=== PATIENT | female | born 1940 | race Caucasian/White ===

== ENCOUNTER → 2017-06-11 | Outpatient (CLI) | payer OTHER, MEDICARE ==
--- NOTE | 2017-06-11 09:26 | DIAGNOSTIC IMAGING REPORT ---
ULTRASOUND ABDOMEN COMPLETE CLINICAL HISTORY: Vomiting. Abdominal distention. COMPARISON STUDY: No priors. TECHNIQUE: Real-time, grayscale, and color flow sonography of the abdomen was performed. Images are reviewed in the transverse and longitudinal planes. FINDINGS: Liver: The liver is top normal in size and demonstrates heterogeneously increased echotexture suggesting hepatic steatosis. There is no intrahepatic biliary ductal dilatation. The main portal vein is patent. Gallbladder: The gallbladder is surgically absent. The common bile duct measures up to 0.5 cm in diameter. Pancreas: Visualized portions of the pancreatic head and body are normal in appearance. The splenic vein is patent. Spleen: The spleen is normal in size and heterogeneous in echotexture, measuring 11.3 cm in length. There is a questionable subcapsular collection and possible parenchymal calcification. Kidneys: The kidneys are normal in size and echotexture. There is no hydronephrosis. The right kidney measures 11.3 cm in length and the left kidney measures 9.6 cm in length. No shadowing calculi are identified. A 1.8 cm cyst is incidentally noted on the right. Abdominal vasculature: Visualized portions of the abdominal aorta and IVC are normal in appearance. Ascites: None. IMPRESSION: 1. The spleen is heterogeneous and there is a questionable subcapsular collection. This is not well assessed and of indeterminant significance. Correlation with a contrast-enhanced abdominal CT is recommended for further assessment. 2. The gallbladder is surgically absent. 3. Findings suggest hepatic steatosis. Electronically signed by: Braydon Ozuna M.D. 06/11/2017 9:24 AM Dictated Date/Time: 06/11/2017 9:18 AM
== END | disposition home or self-care (01) ==
LOC: C.ULTR 08:30
PROVIDERS: ATTEND Internal Medicine Gastroenterology
DX: R11.10 Vomiting, unspecified (principal); R14.0 Abdominal distension (gaseous); R93.2 Abnormal findings on diagnostic imaging of liver and biliary tract; Z90.49 Acquired absence of other specified parts of digestive tract

== ENCOUNTER → 2017-06-15 | Outpatient (CLI) | payer OTHER, MEDICARE ==
[~2017-06-15] MED LIST: OPTIRAY 320 IV PRN
--- NOTE | 2017-06-15 15:22 | DIAGNOSTIC IMAGING REPORT ---
ABD WITH IV CONTRAST ONLY (CT) HISTORY: 76 years-old Female ABDOMEN WITH CONTRAST / SPLENIC LESION follow-up study to assess splenic lesion seen on comparison ultrasound. COMPARISON: Abdominal ultrasound 06/11/2017 TECHNIQUE: Multiple axial CT images of the abdomen were obtained following the intravenous administration of 91 mL Optiray 320. A dose lowering technique was used consistent with the principals of ELMO. FINDINGS: There is an opaque likely densely calcified lobulated structure within the inferior left posterior mediastinum posterior to the left diaphragmatic travis measuring 5.9 x 4.9 x 5.3 cm nicely seen on image 59 of series 3. No associated invasion of the adjacent structures identified. There are central areas of soft tissue attenuation within this lesion measuring up to 2.6 cm as seen on image 69 series 3. Mass causes mild rightward displacement of the gastroesophageal junction and descending thoracic aorta at this level. Imaged inferior cardiac chambers are unremarkable. Coronary arterial calcifications are seen. Prior cholecystectomy. The liver, pancreas and adrenal glands are within normal limits. The spleen is within normal limits without subcapsular collection or calcifications identified. The previously described findings on ultrasound were likely artifactual from the aforementioned calcified mass. Low attenuating lesions of the kidneys bilaterally suggest cysts, however are too small to characterize. No definite renal calculi or hydronephrosis. The abdominal aorta and trace moderate atherosclerotic plaquing. No bulky adenopathy identified. There is no bowel obstruction or focal bowel wall thickening. Bones are moderately demineralized. Prior posterior decompression with interbody fusion at L3-L5. IMPRESSION: 1. Large 5.9 cm lobulated circumscribed dense structure of the inferior aspect posterior mediastinum posterior to the left diaphragmatic travis appears calcified and causes mild mass effect upon the adjacent descending thoracic aorta and distal esophagus containing areas of central soft tissue attenuation. This lesion is nonspecific however is likely benign. As a precautionary measure, a six-month follow-up chest CT recommended. 2. Normal appearance of the spleen. Previously questioned splenic abnormalities were likely from artifact secondary to the aforementioned lesion. 3. Prior cholecystectomy. The above report was generated using voice recognition software. It may contain grammatical, syntax or spelling errors. Electronically signed by: Gabriel House M.D. 06/15/2017 3:21 PM Dictated Date/Time: 06/15/2017 2:03 PM
== END | disposition home or self-care (01) ==
LOC: C.CTS 13:15
PROVIDERS: ATTEND Internal Medicine Gastroenterology
DX: D73.89 Other diseases of spleen (principal); Z90.49 Acquired absence of other specified parts of digestive tract

== ENCOUNTER 2017-08-29 08:25 | Inpatient (IN) | payer OTHER, MEDICARE ==
[2017-08-10 10:05] VITALS: BMI 32.0
--- NOTE | 2017-08-10 10:36 | PAT Medication Instructions ---
Service Date Aug 10, 2017. Current Home Medication List Amlodipine (Norvasc), 5 MG PO QAM Aspirin (Aspirin Ec), 81 MG PO QAM Atorvastatin (Lipitor), 40 MG PO QAM Escitalopram Oxalate (Lexapro), 20 MG PO QAM Hctz/Losartan (Hyzaar 25MG/100MG), 1 TAB PO QAM Ibuprofen (Advil), 600 MG PO PRN Multivitamin (Multivitamin), 1 TAB PO QAM Omeprazole (Prilosec), 40 MG PO QAM Triamcinolone Acetonide (Nasal (Nasacort Allergy 24Hr), 1 SPRAY INTNAS PRN [Ultram], 1 TAB PO PRN Medication Instructions For Your Scheduled Surgery - Instructions per surgeon: Ibuprofen (Advil), 600 MG PO PRN - Hold the following medications the morning of surgery: Hctz/Losartan (Hyzaar 25MG/100MG), 1 TAB PO QAM Multivitamin (Multivitamin), 1 TAB PO QAM - Take the following medications the morning of surgery with a sip of water OTHERWISE NOTHING TO EAT OR DRINK AFTER MIDNIGHT: Amlodipine (Norvasc), 5 MG PO QAM Aspirin (Aspirin Ec), 81 MG PO QAM Atorvastatin (Lipitor), 40 MG PO QAM Omeprazole (Prilosec), 40 MG PO QAM Escitalopram Oxalate (Lexapro), 20 MG PO QAM [Ultram], 1 TAB PO PRN (may take if needed up to 4 hours prior to surgery) Triamcinolone Acetonide (Nasal (Nasacort Allergy 24Hr), 1 SPRAY INTNAS PRN - Take the following medications as scheduled the night before surgery: [Ultram], 1 TAB PO PRN If you have any questions please call us at [phone] or [phone] or [phone]
--- NOTE | 2017-08-10 11:32 | DIAGNOSTIC IMAGING REPORT ---
CHEST 2 VIEWS ROUTINE HISTORY: 77 years-old Female PAT preoperative exam. No acute chest complaints. COMPARISON: CT of the abdomen 06/15/2017 TECHNIQUE: PA and lateral views of the chest FINDINGS: Cardiac silhouette is mildly enlarged, unchanged. Atherosclerosis of the aorta. No pneumothorax, pleural effusion, focal airspace consolidation or overt pulmonary edema. Fusion hardware is seen within the cervical and lumbar spine, partially imaged. Multilevel endplate spurring of the spine. Prior cholecystectomy. Large lobulated densely calcified structure of the left posterior mediastinum redemonstrated measuring up to 5.9 x 5.4 cm. This appears stable from comparison CT is again nonspecific. IMPRESSION: No acute cardiopulmonary process. The above report was generated using voice recognition software. It may contain grammatical, syntax or spelling errors. Electronically signed by: Gabriel House M.D. 08/10/2017 11:31 AM Dictated Date/Time: 08/10/2017 11:28 AM
[2017-08-10 11:41] LABS: BASO % 0.5 %; BASO ABS # 0.03 K/uL (0-0.2); COMPLETE YES; EOS % 4.4 %; HEMATOCRIT 41.6 % (37-47); IG% 0.3 %; LYMPH % 32.4 %; LYMPH ABS # 2.14 K/uL (1.2-3.4); MEAN CELL VOLUME 88.9 fL (80-100); MEAN CORPUSCULAR HEMOGLOBIN 29.7 pg (25-34); MEAN CORPUSCULAR HGB CONC 33.4 g/dl (32-36); MEAN PLATELET VOLUME 10.6 fL (7.4-10.4); MONO % 9.5 %; NEUT % 52.9 %; PLATELET COUNT 260 K/uL (130-400); RED BLOOD COUNT 4.68 M/uL (4.2-5.4)
[2017-08-10 11:48] LABS: URINE APPEARANCE CLEAR (CLEAR); URINE BILIRUBIN NEG (NEG); URINE COLOR YELLOW; URINE NITRITE NEG (NEG); URINE SPECIFIC GRAVITY 1.027 (1.000-1.030); UROBILINOGEN NEG (NEG)
[2017-08-10 11:49] LABS: BUN/CREATININE RATIO 22.1 (10-20); CREATININE 0.97 mg/dl (0.60-1.20); POTASSIUM 3.9 mmol/L (3.5-5.1)
[2017-08-10 11:50] LABS: MANUAL MICROSCOPIC REQUIRED? NO; REVIEW REQ? NO
[2017-08-10 11:52] LABS: INR 0.9 (0.9-1.1); PARTIAL THROMBOPLASTIN RATIO 0.9
--- NOTE | 2017-08-13 15:25 | HISTORY & PHYSICAL EXAMINATION ---
DATE OF ADMISSION: 08/29/2017 PREOPERATIVE HISTORY AND PHYSICAL CHIEF COMPLAINT: Left knee pain. HISTORY OF PRESENT ILLNESS: This 77-year-old white female presents to the office with complaints of left knee pain that has been ongoing for several years. It has been increasing with time. It is worse with weightbearing activities and is affecting her ADLs. She does use a cane. She has a history of previous right hip replacement and right knee replacement. She elects to proceed with the same on the left. No specific injury. She notes some crepitus with motion. Preoperative imaging has been obtained. No numbness or tingling. No catching, locking, or buckling. She is scheduled to undergo a left total knee arthroplasty on 08/29/2017. PAST MEDICAL HISTORY: Significant for hypertension, elevated cholesterol, osteoarthritis, back pain, GERD, obesity, anxiety, and chronic mediastinal mass. PREVIOUS SURGERIES: Cervical laminectomy, lumbar fusion, right hip LC, right knee TKA, hysterectomy, cholecystectomy, shoulder surgery, colonoscopy, and upper GI endoscopy. ALLERGIES: KNOWN ALLERGY TO CODEINE WHICH CAUSES NAUSEA AND DIZZINESS AND DILAUDID WHICH CAUSES A RASH. SHE STATES SHE IS FINE WITH PERCOCET AND MORPHINE. CURRENT MEDICATIONS: Amlodipine 5 mg daily, aspirin 81 mg daily, atorvastatin 20 mg daily, escitalopram 20 mg daily, HCTZ/losartan 25 mg/100 mg p.o. daily, multivitamin daily, omeprazole 40 mg daily, and Tylenol p.r.n. FAMILY HISTORY: Significant for breast cancer and CHF. SOCIAL HISTORY: The patient is retired. . No tobacco use, occasional ETOH use. REVIEW OF SYSTEMS: Significant for above-stated conditions, otherwise unremarkable. PHYSICAL EXAMINATION: GENERAL: Well-developed, well-nourished elderly white female in no acute distress. Sitting in a chair. Alert and oriented. SKIN: Warm and dry with good turgor. No rashes or lesions. No ecchymosis or erythema. No intraarticular effusion. HEENT: Normocephalic, atraumatic. Eyes - PERRLA, EOMI. Nares patent bilaterally without turbinate enlargement. Oropharynx without erythema or exudate. No lesions noted. Uvula midline. Oral mucosa moist. Fair dentition. Dental caps are noted. HEART: RRR, soft, 2/6 systolic ejection murmur noted. No gallops or rubs. LUNGS: Clear to auscultation bilaterally. No crackles, rhonchi or wheezing. Good air movement. ABDOMEN: Obese. Bowel sounds present x4, soft, nontender. No organomegaly. No masses. MUSCULOSKELETAL: Left knee evaluation reveals no intraarticular effusion. She does have crepitus with active and passive range of motion. She lacks a few degrees of terminal extension. Flexion to around 100 degrees. She has varus alignment. There is medial and lateral joint line discomfort with palpation. No collateral ligament instability. No defect in the patellar tendon or quadriceps tendon. Ambulatory with a slightly antalgic gait. NEUROLOGIC: Cranial nerves II-XII are intact. Gross sensation is intact across the lower extremities by soft touch. Peripheral pulses are 2+. DATA: Radiographic imaging previously obtained shows a well-aligned knee replacement on the right. She has significant DJD of the left knee with periarticular osteophytes, subchondral sclerosis, and joint space narrowing in all 3 compartments. IMPRESSION: Left knee end-stage degenerative joint disease. PLAN: Postoperative prescriptions for Percocet and Coumadin will be provided at discharge from the hospital. Anticipate discharge to [facility] or alf facility after her hospital stay. She states her has peripheral neuropathy at home and requires assistance. He will not be able to help her during her recovery. She will speak with Dr. Saucedo, regarding her heart murmur during her upcoming medical clearance. Preoperative lab work, EKG, and chest x-ray have been ordered. She already has access to a walker.
[~2017-08-29] VITALS: Ht 167.6 cm; Wt 32.5 kg
[2017-08-29] VITALS (7 sets, daily range): BP systolic 111–147; BP diastolic 62–73; PULSE 56–64; TEMP 36.5–37.2; O2SAT 92–96; Ht 167.6 cm; Wt 32.5 kg
[~2017-08-29 08:25] MED LIST changes: +AMLO-110 PO; +ASPI81TA28 PO; +ATOR-24 PO; +BUPIVACAINE 0.25% 30 ML VIAL ONE; +BUPIVACAINE 0.5 % 5 MG/1 ML PF 10ML VIAL ONE; +CEFAZOLIN 2000MG IV PUSH 10 ML IV SCH; +ESCI1TAB10 PO; +HYZ/10015 PO; +IBUP-1050 PO; +LACTATED RINGER'S 1000ML 1,000 ML IV SCH; +LACTATED RINGER'S 1000ML 500 ML IV ONE; +LACTATED RINGER'S 1000ML IV SCH; +MULT-506 PO; -OPTIRAY 320 IV PRN; +PRLSR20 PO; +ROPIVACAINE 5MG/ML 30 ML 150 MG, BUPIVACAINE/EPINEPHR 0.5% MPF 30 ML, KETOROLAC TROMETH... INFIL SCH; +TRANEXAMIC ACID INJ 1,000 MG in SYRINGE 0 ML IV SCH; +TRIA1SPR4 INTNAS; +ULTRAM PO
--- NOTE | 2017-08-29 08:32 | History & Physical Bridge Note ---
H&P Re-Evaluation Bridge Note: I have examined the patient, reviewed the History & Physical and in the interval since the performance of the History & Physical I have noted the following changes of clinical significance: consent reviewed.No changes noted
[2017-08-29] MEDS ORDERED: FENTANYL CITRATE INJ 50 MCG/1 ML 2 ML VIAL ONE (09:32)
[2017-08-29] MEDS ORDERED: MIDAZOLAM HCL 1 MG/ML 2ML VIAL ONE (09:32)
[2017-08-29] MEDS ORDERED: ORTHO JOINT ANESTHETIC ONE (10:49)
[2017-08-29] MEDS ORDERED: POVIDONE-IODINE OP SOLN 30 ML BTL ONE (10:50)
[2017-08-29] MEDS ORDERED: PROPOFOL IV EMULSION 10 MG/ML 20 ML VIAL IV ONE (11:26)
[2017-08-29] MEDS ORDERED: ONDANSETRON INJ 2 MG/ML 2 ML VIAL ONE (11:26)
[2017-08-29] MEDS ORDERED: DEXAMETHASONE SOD INJ 4 MG/ML VIAL ONE (11:26)
[2017-08-29] MEDS ORDERED: KETOROLAC TROMETHAMINE 15 MG/ML VIAL IV. PRN (12:30)
[2017-08-29] MEDS ORDERED: EpHEDrine SULFATE INJ 50 MG/ML AMP IV PRN (12:30)
[2017-08-29] MEDS ORDERED: MoRPHine SULFATE 2 MG/ML CARP IV PRN ×2 (12:30→13:00)
[2017-08-29] MEDS ORDERED: ONDANSETRON INJ 2 MG/ML 2 ML VIAL IV PRN ×2 (12:30→13:00)
[2017-08-29] MEDS ORDERED: ATROPINE SULFATE 0.1 MG/ML 5ML SYR IV PRN (12:30)
[2017-08-29] MEDS ORDERED: PHENYLEPHRINE 100MCG/ML 5ML SYR IV PRN (12:30)
--- NOTE | 2017-08-29 12:30 | [facility] Post Operative Brief Note ---
Immediate Operative Summary Operative Date Aug 29, 2017. Pre-Operative Diagnosis Left Knee Degenerative Joint Disease Post-Operative Diagnosis Same as Preop Procedure(s) Performed Left Total Knee Arthroplasty Surgeon Dr. Pompa Customer Data Technician Surgeon(s) Heath Farmer PA-C Estimated Blood Loss 50 ml Findings tricompartmental djd Fluids (cc crystalloids) 1400cc Specimens A. Left Knee Bone and Tissue Drains none Anesthesia spinal Complication(s) None Disposition Recovery Room / PACU
--- NOTE | 2017-08-29 12:57 | [facility] Operative Report ---
Operative Report Operative Date Aug 29, 2017. Pre-Operative Diagnosis Left Knee Degenerative Joint Disease Post-Operative Diagnosis Left knee same as Preop Procedure(s) Performed Left Total Knee Arthroplasty Surgeon Dr. Pompa Tool Grinding Technician Surgeon(s) Heath Farmer PA-C Estimated Blood Loss 50 ml Findings Left knee DJD Fluids 1400cc Specimens A. Left Knee Bone and Tissue Drains none Anesthesia spinal Complication(s) None Disposition Recovery Room / PACU Indications This 77-year-old white female presented to the office with complaints of intractable left knee pain. She has a history of previous right total hip arthroplasty and right total knee arthroplasty. She elected to proceed with left total knee arthroplasty in hopes of alleviating her discomfort. She had tried conservative care measures including activity modification, use of a cane , and oral pain medication without success. Preoperative imaging was obtained. Description of Procedure Patient was administered a spinal anesthetic and then taken to the operating room where she was given sedation. She was prepped and draped in usual sterile fashion. Please see Dr. Pompa's operative report for specifics of the procedure. I was present for the entire case from initial patient positioning through final wound closure. Assistance was provided in patient positioning, tissue traction, hemostasis, trial implant placement, final implant placement, and final wound closure. Patient was taken to the recovery room in satisfactory condition. I attest to the content of the Intraoperative Record and any orders documented therein. Any exceptions are noted below.
[2017-08-29] MEDS ORDERED: ALUMINUM/MAGNESIUM/SIMETH (MAALOX MAX) 30 ML UDC PO PRN (13:00)
[2017-08-29] MEDS ORDERED: CEFAZOLIN IV 2,000 MG in DEXTROSE 5% 50ML 50 ML IV SCH (13:00)
[2017-08-29] MEDS ORDERED: METOCLOPRAMIDE HCL INJ 5 MG/ML 2 ML VIAL IV PRN (13:00)
[2017-08-29] MEDS ORDERED: BISACODYL 10 MG SUPP PR PRN (13:00)
[2017-08-29] MEDS ORDERED: MAGNESIUM HYDROXIDE SUSP 30 ML UDC PO PRN (13:00)
[2017-08-29] MEDS ORDERED: ACETAMINOPHEN 325 MG TAB PO PRN (13:00)
[2017-08-29] MEDS ORDERED: DiphenhydrAMINE HCL 50 MG/ML VIAL IV PRN (13:00)
[2017-08-29] MEDS ORDERED: TRIAMCINOLONE ACET NASAL SPRAY 10.8ML BTL SCH (13:00)
--- NOTE | 2017-08-29 13:32 | OPERATIVE REPORT ---
DATE OF OPERATION: 08/29/2017 SURGEON: Fareed Pompa MD COLD PRESS OPERATOR: Heath Farmer PA-C. No resident or fellow available. PREOPERATIVE DIAGNOSIS: Osteoarthritis, left knee. POSTOPERATIVE DIAGNOSIS: Same. OPERATION PERFORMED: Cemented left total knee replacement. PERIOPERATIVE SITUATION: Medically cleared female with intractable pain, has failed conservative management, and has had a right knee replacement done elsewhere and right hip replacement done elsewhere. They still have some pain, but she still wants to proceed with a left total knee replacement and has been worked up with sed rate and CRP, which were normal. Her x-rays did not reveal any loosening. She understands that this may not eliminate all of her symptoms. She still wants to proceed. Consent reviewed. No change in medications. DESCRIPTION OF PROCEDURE: The patient was appropriately identified, site verified, consent verified, and 2 grams of Ancef confirmed as being given. The left lower extremity was prepped and draped in the usual routine fashion. Tourniquet inflated to 300 mmHg after exsanguination of limb with a rubber Esmarch bandage for a total of approximately 44 minutes. Midline exposure was utilized. Parapatellar arthrotomy performed. Synovectomy completed. Distal femur resected 14 mm. Proximal tibia resected 4 mm. Extension gap was excellent. Femur sized between a 4 and 3 and was measured 4 cut 3. There was no notching. The tibia sized to a 3. Flexion gap was excellent. Box cut was then made and the size 3 femur fit well. Tibia was reamed to a 3 and trial with the 10 and 12.5 spacer revealed that the 12.5 spacer gave a little bit more mid range stability, so that was selected. The patella was sized to a 41. It was resected leaving 15 mm and the trial tracked well. All trial elements were then removed. The wound irrigated with Betadine, Pulsavac and then Orthomix injected. The wound irrigated and the permanent cemented into position. After 12 minutes, the tourniquet deflated. After 14 minutes, the knee flexed. Post cement removal required. The wound was irrigated with Betadine Pulsavac, the permanent spacer seated, and the knee reduced. The patella tracked well. The wound was then closed in slight flexion with #1 Ethibond, #1 Vicryl, and 2-0 Vicryl and stainless steel clips. Appropriate dressing applied. ESTIMATED BLOOD LOSS: 50 mL. CRYSTALLOID: Approximately 1400 mL. See anesthesia report. DVT prophylaxis with Coumadin. Bone pathology pending from resections. SUMMARY OF IMPLANTS: Size 3 left femur posterior cruciate substituting size 3 rotating platform tray, size 3 spacer 12.5 mm thick posterior cruciate substituting and oval domed 3 pegged patella size 41, and 2 bags of Palacos G cement. I attest to the content of the Intraoperative Record and any orders documented therein. Any exceptions are noted below. MTDD
--- NOTE | 2017-08-29 13:32 | DIAGNOSTIC IMAGING REPORT ---
L KNEE 1 OR 2 VIEWS ROUTINE CLINICAL HISTORY: Degenerative arthritis. Postop study. COMPARISON: 07/02/2017 DISCUSSION: There are postsurgical changes of a total left knee arthroplasty and patellar resurfacing. The femoral and tibial components appear well seated. Overlying surgical drains are evident. There is air within the soft tissues consistent with the history of recent surgery. IMPRESSION: Postsurgical changes of a total left knee arthroplasty. Electronically signed by: Gio Houser M.D. 08/29/2017 1:31 PM Dictated Date/Time: 08/29/2017 1:30 PM
--- NOTE | 2017-08-29 13:37 | Anesthesiology Progress Note ---
Anesthesia Post Op Note Date & Time Aug 29, 2017 at 13:37 Vital Signs Pain Intensity: 0 Vital Signs Past 12 Hours Date Time Temp Pulse Resp B/P (MAP) Pulse Ox O2 Delivery O2 Flow Rate FiO2 08/29/17 13:20 36.6 56 14 130/55 96 Nasal Cannula 3 08/29/17 13:10 56 15 132/66 95 Nasal Cannula 3 08/29/17 13:00 61 16 132/50 98 Nasal Cannula 3 08/29/17 12:50 57 14 134/55 96 Nasal Cannula 3 08/29/17 12:41 36.6 59 16 159/57 98 Oxymask 8 08/29/17 08:55 36.8 56 20 147/73 95 Room Air Notes Mental Status: alert / awake / arousable, participated in evaluation Pt Amnestic to Procedure: Yes Nausea / Vomiting: adequately controlled Pain: adequately controlled Airway Patency, RR, SpO2: stable & adequate BP & HR: stable & adequate Hydration State: stable & adequate Anesthetic Complications: no major complications apparent
--- NOTE | 2017-08-29 13:37 | PROGRESS NOTE ---
DATE: 08/29/2017 SUBJECTIVE: Postop check status post left total knee replacement. Seen in recovery room. She is awake, alert. She denies chest pain, shortness of breath, fever, chills, nausea, vomiting and headache. Her pain is well managed. The block is wearing off. Vital signs are stable. She is afebrile. Wound dressing clean, dry and intact. X-rays postop look excellent. Discussed her postop recovery with her and her in detail. STEVEN
[2017-08-29] MEDS ORDERED: MoRPHine SULFATE 4 MG/ML 1 ML CARP\\VIAL IV PRN (15:00)
[2017-08-29] MEDS ORDERED: D5W AND 1/2NSS + 20MEQ KCL 1,000 ML IV SCH (15:00)
[2017-08-29] MEDS ORDERED: WARF2TAB PO (15:40)
[2017-08-29] MEDS ORDERED: WARFARIN SOD 5 MG TAB PO SCH (16:00)
[2017-08-29] MEDS: KETOROLAC TROMETHAMINE 15 MG/ML VIAL IV. SCH ×2 (16:11→22:24)
[2017-08-29] MEDS: FERROUS GLUCONATE 324 MG TAB PO SCH (17:49)
[2017-08-29] MEDS ORDERED: TRANEXAMIC ACID INJ 1,000 MG in SODIUM CHLORIDE 0.9% 100ML 100 ML IV SCH (20:00)
[2017-08-29] MEDS: OXYCODONE HCL IR 5 MG TAB (IMMEDIATE RELEASE) PO PRN (20:16)
[2017-08-29] MEDS: CEFAZOLIN IV 2,000 MG in SYRINGE 0 ML IV SCH (20:16)
[2017-08-29] MEDS: DOCUSATE SODIUM 100 MG CAP PO SCH (20:17)
[2017-08-30] MEDS: OXYCODONE HCL IR 5 MG TAB (IMMEDIATE RELEASE) PO PRN ×2 (00:11→06:25)
[2017-08-30 03:29] VITALS: BP 113/63; PULSE 59; TEMP 37.2; O2SAT 94
[2017-08-30] MEDS: KETOROLAC TROMETHAMINE 15 MG/ML VIAL IV. SCH ×2 (03:33→10:45)
[2017-08-30] MEDS: CEFAZOLIN IV 2,000 MG in SYRINGE 0 ML IV SCH ×2 (03:33→11:55)
[2017-08-30 06:49] LABS: HEMATOCRIT 34.5 % (37-47); MEAN CELL VOLUME 88.7 fL (80-100); MEAN CORPUSCULAR HEMOGLOBIN 30.3 pg (25-34); MEAN CORPUSCULAR HGB CONC 34.2 g/dl (32-36); MEAN PLATELET VOLUME 10.6 fL (7.4-10.4); PLATELET COUNT 236 K/uL (130-400); RED BLOOD COUNT 3.89 M/uL (4.2-5.4); WHITE BLOOD COUNT 13.25 K/uL (4.8-10.8)
[2017-08-30 07:00] VITALS: BP 100/55; PULSE 56; TEMP 36.8; O2SAT 93
[2017-08-30 07:13] LABS: PROTHROMBIN TIME (PATIENT) 10.2 SECONDS (9.0-12.0)
[2017-08-30 07:24] LABS: CALCIUM 8.4 mg/dl (8.5-10.1); CREATININE 1.35 mg/dl (0.60-1.20); POTASSIUM 4.3 mmol/L (3.5-5.1)
[2017-08-30] MEDS ORDERED: DEXAMETHASONE INJ 10 MG in SYRINGE 0 ML IV SCH (07:30)
--- NOTE | 2017-08-30 08:16 | DISCHARGE SUMMARY ---
DATE OF DISCHARGE: 08/30/2017 pending bed availability at [facility]. CHIEF COMPLAINT: Left knee pain. HISTORY OF PRESENT ILLNESS: The patient underwent elective left total knee replacement. At this point in time she complains of appropriate pain but is appropriately medicated and responds well. She denies any chest pain, shortness of breath, fever, chills, nausea, vomiting or headache. She is hungry. PAST MEDICAL HISTORY: Remarkable for hypertension, elevated cholesterol, osteoarthritis, back pain, GERD, obesity, anxiety, chronic mediastinal mass. PAST SURGICAL HISTORY: Including cervical laminectomy, lumbar fusion, right hip replacement, right knee replacement, hysterectomy, cholecystectomy, shoulder surgery, colonoscopy, upper GI endoscopies. ALLERGIES: CODEINE WHICH CAUSES NAUSEA AND DIZZINESS, DILAUDID, CAUSES A RASH. She states she is fine with Percocet and morphine. PREADMISSION MEDICATIONS: Include amlodipine 5 mg daily, aspirin 81 mg daily, atorvastatin 20 mg daily, escitalopram 20 mg daily, hydrochlorothiazide/losartan 25/100 daily, multivitamin, omeprazole 40 mg daily, Tylenol p.r.n. FAMILY HISTORY: Remarkable for breast cancer and CHF. SOCIAL HISTORY: Reveals she is retired, . No tobacco or alcohol use. REVIEW OF SYSTEMS: As noted above is stable. ASSESSMENT: Status post left total knee replacement. Plan is to continue with potential transfer to [facility] per her request. She will be discharged on 4 mg of Coumadin daily, keep INR 1.8-2.2. Mobilize. DVT prophylaxis additionally, with DIANA stockings. NO LOVENOX. Follow up in 2 weeks for staple removal.
--- NOTE | 2017-08-30 08:16 | PROGRESS NOTE ---
DATE: 08/30/2017 DATE: 08/30/2017 SUBJECTIVE: Postop day #1 status post left total replacement. Doing well today. No chest pain or shortness of breath. No nausea, vomiting or headache. She is afebrile. Hematocrit stable. INR is subtherapeutic. ASSESSMENT: Doing well and able to be discharged/transferred to [facility] when bed available. Discharge on 4 mg of Coumadin daily. NO LOVENOX. Mobilize. MTDD
[2017-08-30] MEDS ORDERED: OXYC-57 PO (08:34)
--- NOTE | 2017-08-30 08:36 | Discharge Instructions ---
Discharge Instructions Date of Service Aug 29, 2017. Admission Reason for Admission: Left Knee Degenerative Joint Disease Discharge Discharge Diagnosis / Problem: Left knee s/p total knee replacement Discharge Goals Goal(s): Decrease discomfort, Improve function, Increase independence, Improve disease control Activity Recommendations Activity Level: Up Ad Valerie Therapies: Physical Therapy, Weight Bearing Status (as tolerated) Weightbearing Status: Left weightbearing (as tolerated) Lifting Limitations: gradually increase as tolerated Exercise/Sports Limitations: until after follow-up appointment Shower/Bathe: keep incision dry . Additional Information Patient informed of condition: Yes Advance Directives: Yes DNR: No Level of Care: Acute Rehab Communicable Disease: No Prognosis: Stable Lynch Catheter: No Instructions / Follow-Up Instructions / Follow-Up New Medicine: * You will likely be taking one or more of these medications: 1. Percocet - Take, as directed, when you need it, every four to six hours to control your pain. 2. Coumadin - Thins your blood to lessen the chance of forming a blood clot. The dose of this is different for each person and is based on your blood tests that are done twice a week. * The most common side effects of pain medicine and iron are nausea and constipation. If nausea or constipation is too much of a problem or if you have any questions about your new medicines or doses, call [facility] at . We will try to help you manage these issues. VERY IMPORTANT TO READ AND REVIEW" Blood Clots and Blood Thinning Medicine: * You are given Coumadin during the immediate post-operative period to lessen the risk of blood clots forming in your legs and/or lungs. Coumadin is usually given for six weeks after surgery. * The prescription is for 2 mg tablets. At discharge, you should understand your dose and take it all at the same time every day, preferably after dinner. * You need to get your blood checked 1 - 2 times per week for six weeks or as directed. * If your dose needs to change, we will call you. Do not take your medication on the day of the blood test until we call you. Pain: * The immediate post-operative period after knee replacement surgery is often quite painful. * You are given a prescription for pain medicine. You should take it, as directed, when you need it, especially before physical therapy and before going to bed. Pain that interferes with sleep is very common and can last several months. * You will likely need pain medicine for the first four to six weeks. It will not stop all of the pain. The pain will lessen and as you feel better, you may change to milder pain medicine such as Tylenol. * The most common side effects of pain medicine are nausea and constipation, so don't take more than you need. Physical Therapy: * You will have physical therapy two or three times each week for four to six weeks after your surgery in order to regain your knee range of motion and to retrain your knee to work properly. * It is just as important to make sure you are getting your knee perfectly straight as it is to regain your knee bend. * Taking a pain pill an hour before therapy can help you have a more productive and comfortable therapy session if needed. Home Exercise: * You were shown a series of exercises (heel props, heel slides, etc.) in the hospital. Do these exercises three to four times each day including the exercises you were shown in physical therapy. Walking: * Get up and walk several times each day. For the first four weeks, try not to stand or walk for more than one hour at a time. If you do stand or walk for more than one hour, you will not hurt anything, but your knee and leg will likely swell. * As you feel comfortable, you may change from the walker or crutches to a cane and then to independent walking. SELF CARE INSTRUCTIONS AFTER TOTAL KNEE REPLACEMENT A. You may need to continue a physical therapy program after discharge from the hospital. There are several options available to you. Your doctor will assist you in selecting the best one for you. 1. An out-patient facility 2 to 3 times a week for therapy or home therapy. 2. Continue working on all exercises taught to you in the hospital. Your goals should be to increase bending of your knee to 90 degrees and beyond and to fully straighten your knee. B. You may progress at your own pace from walking with a walker or crutches to a cane; then to no assistive devices. C. Make walking a part of your daily routine. Be up as much as comfortable with rest periods throughout the day. Rest with leg elevation is very important. Use the ice wrap frequently for the first 3-4 weeks. D. There are no restrictions on activities. You may ride in a car, shop, participate in project management consultant and all social activities. E. Wear the long elastic stockings (DIANA hose) 20 hours a day for six weeks after surgery. They can be removed several times a day for laundering and for a shower. F. Do not place a pillow behind your knee when resting. A pillow at your ankle is okay. VERY IMPORTANT TO READ AND REVIEW A. Take Coumadin, Aspirin or Lovenox (blood thinning medications) as directed by your doctor. If on Coumadin, have a pro-time (blood test) drawn according to your doctor's instructions. This will tell the doctor how well the Coumadin is thinning your blood. 1. YOU WILL BE GIVEN AN ORDER AT DISCHARGE FOR PT/INR (BLOOD WORK). PLEASE HAVE THIS DONE INSTRUCTED. PLEASE CALL OUR OFFICE AFTER YOUR BLOODWORK IS COMPLETE SO WE CAN TRACK YOUR RESULTS. IF YOU ARE GOING TO OUTPATIENT PHYSICAL THERAPY, YOU WILL NEED TO GO TO OUTPATIENT TESTING TO HAVE IT DRAWN. B. There are a few signs you need to watch for after you are home. Call [facility] if you notice any of the followin. Increased severe knee pain. Some pain is expected especially when you exercise. 2. Increased swelling in your leg or knee; pain or swelling of the calf muscle in either lower leg. 3. Any fluid drainage from the incision. 4. Shortness of breath or chest pain. C. Please call [facility] at if you have any concerns or questions about your operation or recovery. The doctor or his nurse will return your call promptly. D. You must take antibiotics before dental work, bladder, bowel or other surgery. Call the office to obtain a prescription at least 2 days prior to your appointment. * CALL IF INCREASED PAIN, REDNESS, DRAINAGE OR FEVER GREATER THAT 101. * Sutures should be removed 12-14 days after surgery unless you are on chronic steriods, then it will be 14-18 days after surgery. Call your doctor if: * Temperature above 101 degrees F. * Pain not relieved by pain medicine ordered. * Increased drainage or redness from incision. * Notify your doctor with any questions or concerns. Current Hospital Diet Patient's current hospital diet: Regular Diet Discharge Diet Recommended Diet: Regular Diet Procedures Procedures Performed: Left Total Knee Arthroplasty Pending Studies Studies pending at discharge: no Physician Orders On Transfer Dressing Changes: change as needed for soiling. Vital Signs: per facility routine Additional Orders: NO Lovenox bridging POLST Discussion: Not Applicable Medical Emergencies . Who to Call and When: Medical Emergencies: If at any time you feel your situation is an emergency, please call 911 immediately. . Non-Emergent Contact Non-Emergency issues call your: Primary Care Provider, Surgeon Call Non-Emergent contact if: temperature is above 101, wound has increased drainage, wound has increased redness, wound has increased pain, you have any medication questions . . "Provider Documentation" section prepared by Heath Farmer PA-C. . Core Measure Problem Core Measures: None [place] Drug Monitoring Program Search Results: no issues identified
--- NOTE | 2017-08-30 08:43 | Orthopedic Progress Note ---
Orthopedic Progress Note Date of Service Aug 30, 2017. Subjective Post OP Day: 1 Reports: feeling well, complaints (Mouth is dry, having some pruritis from her oxycodone), pain controlled w PO medications, Denies: chest pain, SOB, nausea / vomiting, light headedness, calf pain Objective calves soft nontender, N/V intact, capillary refill less than 2 sec., dressing C /D/I, incision C/D/I, A&O x3, toes mobile, CMS intact minimal old drainage, no new drainage. expected edema. able to do a SLR with assistance. Date Time Temp Pulse Resp B/P (MAP) Pulse Ox O2 Delivery O2 Flow Rate FiO2 08/30/17 07:00 36.8 56 16 100/55 (70) 93 Room Air 08/30/17 07:00 Room Air 08/30/17 03:29 37.2 59 16 113/63 (80) 94 Room Air 08/29/17 23:46 37.2 59 15 132/64 (86) 92 Room Air 08/29/17 23:45 Room Air 08/29/17 20:05 37.2 58 18 121/66 (84) 96 Room Air 08/29/17 17:25 36.9 64 16 111/62 (78) 95 Nasal Cannula 1.5 08/29/17 16:55 Nasal Cannula 2.0 08/29/17 16:25 36.6 60 18 131/68 (89) 95 Nasal Cannula 2.0 08/29/17 15:28 36.6 60 18 116/63 (80) 96 Nasal Cannula 2.0 08/29/17 14:30 Nasal Cannula 2.0 08/29/17 14:20 36.5 58 16 121/67 (85) 96 Nasal Cannula 2.0 08/29/17 14:20 96 Room Air 2.0 08/29/17 14:05 61 17 130/59 97 Nasal Cannula 3 08/29/17 13:50 57 17 138/54 97 Nasal Cannula 3 08/29/17 13:35 56 15 130/62 97 Nasal Cannula 3 08/29/17 13:20 36.6 56 14 130/55 96 Nasal Cannula 3 08/29/17 13:10 56 15 132/66 95 Nasal Cannula 3 08/29/17 13:00 61 16 132/50 98 Nasal Cannula 3 08/29/17 12:50 57 14 134/55 96 Nasal Cannula 3 08/29/17 12:41 36.6 59 16 159/57 98 Oxymask 8 08/29/17 08:55 36.8 56 20 147/73 95 Room Air Laboratory Results 24 Hours: Test 08/30/17 06:33 Hematocrit 34.5 % Hemoglobin 11.8 g/dL Prothromb Time International Ratio 1.0 Prothrombin Time 10.2 SECONDS Assessment & Plan Assessment: Left knee post op day 1 total knee arthroplasty Plan: PT/OT today waiting on insurance approval and bed availability for D/C coumadin per nomogram may try benadryl for itching or decreasing dose of oxycodone dressing changed this morning-wound looks very good. Discharge Planning Discharge Planning: rehab hospital Pain Management: Percocet DVT Prophylaxis: TEDs, SCDs, Coumadin Therapy: Physical Therapy, Occupational Therapy
[2017-08-30] MEDS: DOCUSATE SODIUM 100 MG CAP PO SCH (08:56)
[2017-08-30] MEDS: FERROUS GLUCONATE 324 MG TAB PO SCH ×2 (08:56→11:55)
[2017-08-30] MEDS ORDERED: AMLODIPINE BESYLATE 5 MG TAB PO SCH (09:00)
[2017-08-30] MEDS ORDERED: LOSARTAN/HCTZ 50-12.5 EA TAB PO SCH (09:00)
[2017-08-30] MEDS ORDERED: ATORVASTATIN 40 MG TAB PO SCH (09:00)
[2017-08-30] MEDS ORDERED: MULTIVITAMIN TAB PO SCH (09:00)
[2017-08-30] MEDS ORDERED: ESCITALOPRAM OXALATE 20 MG TAB PO SCH (09:00)
[2017-08-30] MEDS ORDERED: ASPIRIN 81 MG ECTAB PO SCH (09:00)
[2017-08-30] MEDS ORDERED: PANTOprazole SOD 40 MG TAB PO SCH (09:00)
[2017-08-30 11:15] VITALS: BP 127/69; PULSE 55; TEMP 36.9; O2SAT 95
[2017-08-30] MEDS ORDERED: NURSING VERBAL MED ORDER ONE (11:15)
[2017-08-30] MEDS ORDERED: TRAMADOL HCL 50 MG TAB PO PRN (11:45)
[2017-08-30 12:15] VITALS: BP 127/69; PULSE 55; TEMP 36.9; O2SAT 95
[2017-08-30] MEDS ORDERED: WARFARIN SOD 5 MG TAB PO SCH (16:00)
== END 2017-08-30 13:25 | DRG 470 ==
LOC: C.ACU 08:25 → C.3E 08:35 → ENRESERV 13:40
PROVIDERS: ADMIT Physical Medicine & Rehabilitation Sports Medicine; ATTEND Physical Medicine & Rehabilitation Sports Medicine
PROC: 0SRD0J9 Replacement of Left Knee Joint with Synthetic Substitute, Cemented, Open Approach (ICD-10-PCS; principal; 2017-08-29 11:00)
DX: M17.12 Unilateral primary osteoarthritis, left knee (principal); I10 Essential (primary) hypertension; E78.00 Pure hypercholesterolemia, unspecified; K21.9 Gastro-esophageal reflux disease without esophagitis; F41.9 Anxiety disorder, unspecified; E66.9 Obesity, unspecified; Z68.32 Body mass index [BMI] 32.0-32.9, adult; Z96.651 Presence of right artificial knee joint; Z96.641 Presence of right artificial hip joint; Z79.82 Long term (current) use of aspirin; Z79.899 Other long term (current) drug therapy; Z82.49 Family history of ischemic heart disease and other diseases of the circulatory system; Z80.3 Family history of malignant neoplasm of breast

== ENCOUNTER → 2017-10-08 | Outpatient (CLI) | payer OTHER, MEDICARE ==
[~2017-10-08] MED LIST changes: -BUPIVACAINE 0.25% 30 ML VIAL ONE; -BUPIVACAINE 0.5 % 5 MG/1 ML PF 10ML VIAL ONE; -CEFAZOLIN 2000MG IV PUSH 10 ML IV SCH; -IBUP-1050 PO; -LACTATED RINGER'S 1000ML 1,000 ML IV SCH; -LACTATED RINGER'S 1000ML 500 ML IV ONE; -LACTATED RINGER'S 1000ML IV SCH; +OXYC-57 PO; -ROPIVACAINE 5MG/ML 30 ML 150 MG, BUPIVACAINE/EPINEPHR 0.5% MPF 30 ML, KETOROLAC TROMETH... INFIL SCH; -TRANEXAMIC ACID INJ 1,000 MG in SYRINGE 0 ML IV SCH; -ULTRAM PO; +WARF2TAB PO
== END | disposition home or self-care (01) ==
LOC: C.RDSM 19:03
PROVIDERS: ATTEND Physical Medicine & Rehabilitation Sports Medicine
DX: M17.12 Unilateral primary osteoarthritis, left knee (principal)

== ENCOUNTER → 2018-04-05 | Outpatient (CLI) | payer OTHER, MEDICARE ==
[~2018-04-05] MED LIST changes: -AMLO-110 PO; +AMLO5TAB3 PO; -OXYC-57 PO; -WARF2TAB PO
--- NOTE | 2018-04-05 15:40 | MAMMOGRAPHY REPORT ---
UNILATERAL LEFT DIGITAL DIAGNOSTIC MAMMOGRAM TOMOSYNTHESIS AND TARGETED LEFT ULTRASOUND: 04/05/2018 CLINICAL HISTORY: Callback from screening mammogram for left breast asymmetry. The patient reports a strong family history of breast cancer including her mother, sister, and multiple first cousins. TECHNIQUE: The study was acquired using full field digital technology and interpreted from soft copy. Breast tomosynthesis in addition to standard 2D mammography was performed. Spot compression left CC and MLO 2D and tomosynthesis images were obtained. COMPARISON: Comparison is made to exams dated: 03/20/2018 mammogram - [facility], mammogram, 02/22/2016 mammogram, 12/31/2014 mammogram, and 06/03/2013 mammogram. BREAST COMPOSITION: There are scattered areas of fibroglandular density in left breast. FINDINGS: The previously described asymmetry seen within the left lateral breast on the cc view, thought to pro ject inferiorly based on the tomosynthesis localizer bar, effaces on the additional spot compression views. Normal fibroglandular tissue is seen in this region, without evidence of a mass, architectura l distortion, or other suspicious abnormality. Targeted ultrasound was performed of the left lower outer quadrant in the region of the mammographic asymmetry. Sonographically normal tissue is seen in this region, without evidence of a mass or other suspicious sonographic abnormality. IMPRESSION: ACR BI-RADS CATEGORY 2: BENIGN, ULTRASOUND ACR BI-RADS CATEGORY 2: BENIGN The left breast asymmetry effaces on the additional spot compression views, without a suspicious sono graphic correlate evident. Findings are benign and compatible with normal fibroglandular tissue. Th ere is no mammographic or sonographic evidence of malignancy. A 1 year screening mammogram is recomme nded.(04/06/2019) Additionally, given the strong family history of breast cancer, the patient may rafael lify for yearly screening breast MRI in addition to yearly mammography (if her lifetime risk is great er than 20%). The patient has been verbally notified of the results. Some breast cancers are not detected with mammography. A negative mammographic report should not alexis y biopsy if a clinically suggestive mass is present. Pati Abbott M.D. ah/:04/05/2018 09:40:26 Asbestos Surveyor: RT Linda(R)(M), [facility] letter sent: Normal 1/2 OVERALL STUDY BIRADS: 2 Benign
== END | disposition home or self-care (01) ==
LOC: C.MAMM 09:09
PROVIDERS: ATTEND Family Medicine
DX: N64.89 Other specified disorders of breast (principal)

== ENCOUNTER → 2018-04-09 | Outpatient (CLI) | payer OTHER, MEDICARE ==
[~2018-04-09] MED LIST changes: +ATEN-173 PO; +BENICAR PO; +CITA20TA4 PO
== END | disposition home or self-care (01) ==
LOC: C.MAMM 09:25
PROVIDERS: ATTEND Family Medicine
DX: M85.832 Other specified disorders of bone density and structure, left forearm (principal)

== ENCOUNTER → 2018-04-15 | Outpatient (CLI) | payer OTHER, MEDICARE ==
--- NOTE | 2018-04-15 16:45 | DIAGNOSTIC IMAGING REPORT ---
R KNEE 1 OR 2 VIEWS CLINICAL HISTORY: B/L KNEE PAIN pain COMPARISON: 07/02/2017 DISCUSSION: Bilateral total knee arthroplasties in good position. Good contact between prosthetic and underlying bone. There is no evidence for soft tissue swelling. IMPRESSION: No acute process post total bilateral knee arthroplasties. The above report was generated using voice recognition software. It may contain grammatical, syntax or spelling errors. Electronically signed by: Pedro Dumont M.D. 04/15/2018 4:44 PM Dictated Date/Time: 04/15/2018 4:43 PM
== END | disposition home or self-care (01) ==
LOC: C.RDSM 15:23
PROVIDERS: ATTEND Orthopaedic Surgery
DX: M25.569 Pain in unspecified knee (principal); Z96.651 Presence of right artificial knee joint; Z96.652 Presence of left artificial knee joint; Z88.6 Allergy status to analgesic agent; Z88.5 Allergy status to narcotic agent

== ENCOUNTER → 2018-04-25 | Day surgery (SDC) | payer OTHER, MEDICARE ==
[2018-04-16 11:02] VITALS: Ht 166.4 cm; Wt 81.8 kg
[~2018-04-25] VITALS: Ht 166.4 cm; Wt 81.8 kg
[~2018-04-25] MED LIST changes: -ESCI1TAB10 PO; -HYZ/10015 PO; +IOPAMIDOL INJ 61% 15 ML VIAL ONE; +LIDOCAINE HCL 1% MPF 5 ML VIAL ONE; +SODIUM CHLORIDE 0.9% INJ 10 ML VIAL ONE; -TRIA1SPR4 INTNAS
--- NOTE | 2018-04-25 13:51 | History & Physical Bridge - SC ---
H&P Re-Evaluation Bridge Note: I have examined the patient, reviewed the History & Physical and in the interval since the performance of the History & Physical I have noted the following changes of clinical significance: No changes noted
--- NOTE | 2018-04-25 14:14 | [facility] Post Operative Brief Note ---
Immediate Operative Summary Operative Date Apr 25, 2018. Pre-Operative Diagnosis RIGHT SACRAL RADICULOPATHY. LUMBAR SPINAL STENOSIS. Post-Operative Diagnosis RIGHT SACRAL RADICULOPATHY. LUMBAR SPINAL STENOSIS. Procedure(s) Performed LUMBAR EPIDURAL STEROID INJECTION Surgeon DR. Viridiana EUBANKS Inspector And Unloader Surgeon(s) None Estimated Blood Loss 0 Findings Consistent with Post-Op Diagnosis Specimens NA Drains None Anesthesia Type Local Complication(s) none Disposition Disposition:
--- NOTE | 2018-04-25 14:15 | Discharge Instructions ---
Discharge Instructions Date of Service Apr 25, 2018. Visit Reason for Visit: Lumbar Spinal Stenosis, Radiculopathy Discharge Discharge Diagnosis / Problem: Leg pains Discharge Goals Goal(s): Decrease discomfort, Improve function Activity Recommendations Activity Limitations: resume your previous activity Anesthesia . Post Anesthesia Instructions: If you have had General Anesthesia or IV Sedation: * Do not drive today. * Resume driving when surgeon permits. * Do not make important decisions or sign legal documents today. * Call surgeon for: 1. Temperature elevations greater than 101 degrees F. 2. Uncontrollable pain. 3. Excessive bleeding. 4. Persistent nausea and vomiting. 5. Medication intolerance (nausea, vomiting or rash). * For nausea and vomiting use only clear liquids such as: tea, soda, bouillon until nausea subsides, then gradually increase diet as tolerated. * If you have any concerns or questions, call your surgeon's office. If physician is unavailable and it is an emergency, call 911 or go to the nearest emergency room. . Diet Recommendations Recommended Home Diet: resume previous diet Procedures Procedures Performed: LUMBAR EPIDURAL STEROID INJECTION Pending Studies Studies pending at discharge: no Medical Emergencies . Who to Call and When: Medical Emergencies: If at any time you feel your situation is an emergency, please call 911 immediately. . Non-Emergent Contact Non-Emergency issues call your: Specialist . . "Provider Documentation" section prepared by Agustin Ramírez. .
[2018-04-25 14:16] VITALS: BP 154/70; PULSE 50; O2SAT 98
--- NOTE | 2018-04-25 16:08 | OPERATIVE REPORT ---
DATE OF OPERATION: 04/25/2018 PREOPERATIVE DIAGNOSIS: History of an L2 through L5 fusion with multifactorial L2-L3 severe stenosis with radiculopathy. POSTOPERATIVE DIAGNOSIS: Same. PROCEDURE: Right paramedian L2-L3 interlaminar epidural steroid injection under fluoroscopic guidance. INDICATIONS: Patient is a 77-year-old white female who presents today for an epidural injection to help with radicular complaints in back and pain in her lower extremity. She has historically responded to epidurals prior to her surgical compression, better initially than more recently. PHYSICAL EXAMINATION: Pleasant female, seated comfortably. She has limited range of motion of her lumbar spine with a well-healed incision. Sciatic notches were nontender. She is without any focal weakness. Negative seated straight leg raises. Intact sensation distally at the L4, L5, S1 dermatomes. CONSENT: Verbal and written consent was obtained from the patient. Risks and benefits reviewed. Risks include but are not limited to epidural abscess, epidural hematoma, allergic reaction, dural puncture. Patient wishes to proceed. DESCRIPTION OF PROCEDURE: Patient was taken back to the special procedures room of [facility]. She was maintained in a prone position. Backside was cleansed with Betadine x3, and a dry sterile dressing was applied. Fluoroscope was used to identify the L2-L3 interlaminar space. The overlying skin on the right side was anesthetized with 4 mL of lidocaine 1% with a 25 gauge 1-1/2-inch needle. A 22-gauge 3-1/2-inch Tuohy needle was then directed down toward the interlaminar space. It was advanced under lateral fluoroscopic guidance, and loss of resistance was noted at a depth of 6.5 cm. Isovue-300 contrast 1 mL was injected, which demonstrated an epidural uptake pattern from an AP view. She then underwent injection after negative aspiration of 40 mg Depo-Medrol and 4 mL of preservative free sodium chloride. Injection was well tolerated. DISPOSITION: 1. Patient is taken out in the discharge recovery area from where she will be discharged home once discharge criteria met. 2. Follow up in the [facility] office in 4 weeks time. I attest to the content of the Intraoperative Record and any orders documented therein. Any exception s are noted below.
== END | disposition home or self-care (01) ==
LOC: X.SURG 13:03
PROVIDERS: ATTEND Physical Medicine & Rehabilitation
DX: M48.061 Spinal stenosis, lumbar region without neurogenic claudication (principal); M54.16 Radiculopathy, lumbar region; K21.9 Gastro-esophageal reflux disease without esophagitis; I10 Essential (primary) hypertension; G47.33 Obstructive sleep apnea (adult) (pediatric); Z96.653 Presence of artificial knee joint, bilateral; Z96.641 Presence of right artificial hip joint; Z90.710 Acquired absence of both cervix and uterus; Z88.5 Allergy status to narcotic agent; Z98.1 Arthrodesis status; Z79.82 Long term (current) use of aspirin

== ENCOUNTER 2021-03-28 18:58 | Inpatient (IN) ==
--- NOTE | 2021-03-28 19:35 | Emergency Department Note ---
Impression & Plan Abdominal pain, epigastric, Abnormal EKG ED Provider Note NAME: SHAYE MUJICA AGE: 80 SEX: F : 1940 ARRIVES VIA: Walk-In INFORMANT: Patient, ED PROVIDER(S): Tom Valero DO CHIEF COMPLAINT: Chest pain HPI: The patient is a 80-year-old female who presented to the emergency department for an evaluation of chest pain. She localizes the chest pain to the lower chest upper abdomen. She states that she does have a history of having an endoscopy in the past. She had severe GERD at one point but then eventually was referred for cardiology evaluation and was diagnosed with angina. The patient recently had a coronary artery bypass grafting surgery about 1 month ago. She was started on all new medications including Plavix. She has been compliant with all of her outpatient medication. She started noticing 2 weeks ago that she was having upper abdominal pain. She also had multiple episodes of diarrhea yesterday. She has had no diarrhea today. She does complain of nausea but no vomiting. She denies having any back pain. She has no dysuria or frequency. She denies having any hematuria. The patient did not see her family doctor for the symptoms. She did call her primary care physician today but did not receive a phone call back which is why she came to the emergency department for further evaluation. The patient states that she has been having difficulty breathing ever since the surgery. She did have a CT of the chest today which was ordered with contrast for evaluation of pulmonary nodules. She does not know the results of this report yet. She denies having any worsening pain with eating. She does have a history of a cholecystectomy in the past. The patient has been experiencing pain for 2 weeks. The pain became worse Sunday and was constant since Sunday. ROS: See above HPI for pertinent positives & negatives. A total of 10 systems reviewed and were otherwise negative. PAST MEDICAL HISTORY: See Below PAST SURGICAL HISTORY: See Below FAMILY HISTORY: See Below SOCIAL HISTORY: See Below HOME MEDICATIONS: See Below ALLERGIES: See Below VITALS: See Below PHYSICAL EXAMINATION: GENERAL: Patient is awake alert in no acute distress patient is resting comfortably and showing no signs of anxiety EYES: The conjunctivae are clear. The pupils are round and reactive. EARS, NOSE, MOUTH AND THROAT: The nose is without any evidence of any deformity. NECK: The neck is nontender and supple. RESPIRATORY: Normal respiratory effort is noted there is no evidence of wheezing rhonchi or rales CARDIOVASCULAR: Regular rate and rhythm noted there no murmurs rubs or gallops normal S1 normal S2. GASTROINTESTINAL: The abdomen is mildly distended. There is no guarding rigidity noted. Tenderness was noted in the epigastric region. MUSCULOSKELETAL/EXTREMITIES: There is no evidence of gross deformity full range of motion is noted in the hips and shoulders. SKIN: There is no obvious evidence of any rash. There are no petechiae, pallor or cyanosis noted. Recent coronary artery bypass site was noted. There was no dehiscence or erythema. NEUROLOGIC: Patient is awake alert and oriented x3. MEDICAL DECISION MAKING: The patient is a 80-year-old female who is status post recent coronary artery bypass grafting who presented to the emergency department with upper abdominal pain. The patient did have some shortness of breath but no tachycardia or hypoxia. I discussed the patient's laboratory and radiographic studies with her. I also discussed the limitations of the cardiac work-up in the emergency department. She did not have a surgical abdomen on physical exam. She did have a CT of the chest done this morning which I did review. I also reviewed the report with the patient. Ultimately given the patient's recent cardiac procedure and h er abnormal EKG I did feel the patient may require further inpatient work-up for her discomfort. For this reason I discussed her case with the on-call [facility] hospitalist. He is agreed to evaluate the patient in the emergency department for further management and disposition. Triage Nursing notes reviewed. Prior medical records reviewed Vital Signs: reviewed and remarkable for elevated blood pressure. Differential diagnosis: Etiologies such as appendicitis, diverticulitis, obstruction, inflammatory bowel disease, renal colic, PUD, biliary pathology, pancreatitis, mesenteric ischemia, aortic pathology, infections, genitourinary, UTI, perforated viscus, as well as others were entertained. ER treatment provided: See below Diagnostics interpreted by me: ECG: EKG was obtained in the emergency department. My interpretation is normal sinus rhythm at 80 bpm. There is no ectopy. Diffuse ST segment abnormalities were noted. T wave inversions were noted in the apical and low lateral leads. There is also T wave inversions in the high lateral leads. This was compared to a tracing from December 032020. The high lateral leads appear unchanged however the other changes are new compared to the earlier tracing. Cardiac Monitoring: An order was placed for continuous cardiac monitoring. The monitor shows a rate of 75 bpm with sinus rhythm. Laboratory studies: As stated above and show below. Imaging studies: See below Consultation(s): I discussed this case with Dr. Arzate who is on-call for the [facility] hospitalist group. Past Med/Surg History Medical History Cervical postlaminectomy syndrome Chronic back pain Dysphagia CURRENT PROBLEM GERD (gastroesophageal reflux disease) Hyperlipidemia Hypertension Myalgia and myositis Obesity Surgical History Fusion of spine LUMBAR History of anesthesia reaction BP DROPS ?DETAILS (WAS TOLD TO HAVE PROCEDURES AT THE HOSPITAL) History of bunionectomy RT/LEFT History of cataract extraction with lens replacement History of cholecystectomy History of colonoscopy History of esophagogastroduodenoscopy (EGD) History of hysterectomy History of laminectomy CERVICAL History of repair of rotator cuff LEFT History of total hip arthroplasty Rt History of total knee replacement B/L S/P epidural steroid injection Family History Other No family history of adverse response to anesthesia Social History Smoking Status: Former smoker Tobacco Type: Cigarettes Second Hand Exposure: No; Hx Alcohol Use: Yes Alcohol type: wine Preferred Language: Sudanese Communication Ability: Effective Self Pay Collector Required: No Beliefs That Will Affect Care: Catholic Catholic Beliefs: [employer] Current Living Situation: Spouse Feels Safe at Home: Yes Assistive Devices: Cane and Glasses Allergies Allergies Allergy/AdvReac Type Severity Reaction Status Date / Time sugammadex Allergy Severe Bronchospas Unverified 03/28/21 20:27 ms prednisone Allergy Intermediate ELEVATED BP Verified 03/28/21 20:27 hydromorphone Allergy Mild RASH Verified 03/28/21 20:27 codeine AdvReac Intermediate NAUSEA AND Verified 03/28/21 20:27 DIZZY oxycodone AdvReac Intermediate DIZZINESS,N Verified 03/28/21 20:27 AUSEA Home Meds Home Medications Medication Instructions Recorded Confirmed calcium carbonate 500 mg calcium 1 tab PO DAILY 11/18/18 03/28/21 (1,250 mg) tablet (Calcium 500) escitalopram oxalate 20 mg tablet 20 mg PO QAM tab 07/14/20 03/28/21 pantoprazole 40 mg tablet,delayed 40 mg PO QAM 11/15/20 03/28/21 release psyllium 500 mg capsule 500 mg PO DAILY #0 12/09/20 03/28/21 acetaminophen 500 mg tablet 750 mg PO Q6H PRN 03/28/21 03/28/21 (Tylenol Extra Strength) amlodipine 10 mg tablet 10 mg PO DAILY 03/28/21 03/28/21 atorvastatin 80 mg tablet 80 mg PO HS 03/28/21 03/28/21 clopidogrel 75 mg tablet 75 mg PO DAILY 03/28/21 03/28/21 furosemide 40 mg tablet 40 mg PO DAILY 03/28/21 03/28/21 metoprolol tartrate 25 mg tablet 12.5 mg PO DAILY 03/28/21 03/28/21 multivitamin 1 tab PO DAILY 03/28/21 03/28/21 Results & Data (ED) Vital Signs Vital Signs - 24 hr 03/28/21 19:04 03/28/21 19:20 03/28/21 20:30 Temperature 36.4 C L Temperature Source Temporal Artery Scan Pulse Rate 90 83 Pulse Rate [Finger] 83 71 Pulse Rhythm Regular Pulse Rhythm [Finger] Regular Respiratory Rate 18 22 18 Respiratory Effort / Characteristics Non-Labored Non-Labored Respiratory Depth Normal Normal Respiratory Pattern Regular Blood Pressure 129/78 Blood Pressure [Left Arm] 173/96 H 160/90 H Blood Pressure Mean 95 Blood Pressure Mean [Left Arm] 121 113 Blood Pressure Position Sitting Blood Pressure Position [Left Arm] Sitting Pulse Oximetry 98 99 100 Oxygen Delivery Method Room Air Room Air Room Air Sepsis Recent Fever Within 48 Hours No Sepsis New/Unexplained Change in Mental Status No Sepsis Action Taken by Nursing No Action Required Laboratory Data Result diagrams: 03/28/21 19:35 03/28/21 19:35 Lab Results 03/28/21 03/28/21 03/28/21 Range/Units 19:35 19:35 19:35 WBC 5.69 (4.8-10.8) K/uL RBC 3.91 L (4.2-5.4) M/uL Hgb 11.9 L (12.0-16.0) g/dL Hct 35.6 L (37-47) % MCV 91.0 (80-100) fL MCH 30.4 (25-34) pg MCHC 33.4 (32-36) g/dL RDW Std Deviation 44.5 (36.4-46.3) fL RDW Coeff of Sarha 13.4 (11.5-14.5) % Plt Count 285 (130-400) K/uL MPV 10.4 (7.4-10.4) fL Immature Gran % (Auto) 0.2 % Neut % (Auto) 48.9 % Lymph % (Auto) 32.3 % Wells % (Auto) 9.8 % Eos % (Auto) 8.4 % Baso % (Auto) 0.4 % Neut # (Auto) 2.78 (1.4-6.5) K/uL Lymph # (Auto) 1.84 (1.2-3.4) K/uL Wells # (Auto) 0.56 (0.11-0.59) K/uL Eos # (Auto) 0.48 (0-0.5) K/uL Baso # (Auto) 0.02 (0-0.2) K/uL Immature Gran # (Auto) 0.01 (0.00-0.02) K/uL PT 10.6 (9.0-12.0) Seconds INR 1.0 (0.9-1.1) APTT 21.1 (21.0-31.0) Seconds PTT Ratio 0.8 D-Dimer 3150 H* (0-500) ug/L FEU Sodium 140 (136-145) mmol/L Potassium 3.8 (3.5-5.1) mmol/L Chloride 105 (98-107) mmol/L Carbon Dioxide 27 (21-32) mmol/L Anion Gap 8.0 (3-11) BUN 17 (7-18) mg/dl Creatinine 1.18 (0.6-1.2) mg/dl Est Cr Clr Drug Dosing Not Reportable Est GFR ( Amer) 51.2 ml/min Est GFR (Non-Af Amer) 44.1 ml/min BUN/Creatinine Ratio 14.5 (10-20) Glucose 109 H (70-99) mg/dl Calcium 9.6 (8.5-10.1) mg/dl Total Bilirubin 0.6 (0.2-1) mg/dl AST 20 (15-37) U/L ALT 25 (12-78) U/L Alkaline Phosphatase 102 (45-117) U/L Troponin I < 0.015 (0-0.045) ng/ml Total Protein 8.0 (6.4-8.2) gm/dl Albumin 4.1 (3.4-5.0) gm/dl Globulin 3.9 (2.5-4.0) gm/dl Albumin/Globulin Ratio 1.0 (0.9-2) Lipase 449 H (73-393) U/L Urine Color Urine Appearance (Clear) Urine pH (4.5-7.5) Ur Specific [place] (1.000-1.030) Urine Protein (Negative) Urine Glucose (UA) (Negative) Urine Ketones (Negative) Urine Blood (Negative) Urine Nitrite (Negative) Urine Bilirubin (Negative) Urine Urobilinogen (Negative) Ur Leukocyte Esterase (Negative) Urine WBC (Auto) (0-5) /hpf Urine RBC (Auto) (0-4) /hpf U Hyaline Cast (Auto) (0-5) /lpf U Epithel Cells (Auto) (0-5) /lpf Urine Bacteria (Auto) (Negative) COVID-19 Eval Order SARS-CoV-2 (PCR) (Negative) 03/28/21 03/28/21 03/28/21 Range/Units 21:10 22:44 22:44 WBC (4.8-10.8) K/uL RBC (4.2-5.4) M/uL Hgb (12.0-16.0) g/dL Hct (37-47) % MCV (80-100) fL MCH (25-34) pg MCHC (32-36) g/dL RDW Std Deviation (36.4-46.3) fL RDW Coeff of Sarah (11.5-14.5) % Plt Count (130-400) K/uL MPV (7.4-10.4) fL Immature Gran % (Auto) % Neut % (Auto) % Lymph % (Auto) % Wells % (Auto) % Eos % (Auto) % Baso % (Auto) % Neut # (Auto) (1.4-6.5) K/uL Lymph # (Auto) (1.2-3.4) K/uL Wells # (Auto) (0.11-0.59) K/uL Eos # (Auto) (0-0.5) K/uL Baso # (Auto) (0-0.2) K/uL Immature Gran # (Auto) (0.00-0.02) K/uL PT (9.0-12.0) Seconds INR (0.9-1.1) APTT (21.0-31.0) Seconds PTT Ratio D-Dimer (0-500) ug/L FEU Sodium (136-145) mmol/L Potassium (3.5-5.1) mmol/L Chloride (98-107) mmol/L Carbon Dioxide (21-32) mmol/L Anion Gap (3-11) BUN (7-18) mg/dl Creatinine (0.6-1.2) mg/dl Est Cr Clr Drug Dosing Est GFR ( Amer) ml/min Est GFR (Non-Af Amer) ml/min BUN/Creatinine Ratio (10-20) Glucose (70-99) mg/dl Calcium (8.5-10.1) mg/dl Total Bilirubin (0.2-1) mg/dl AST (15-37) U/L ALT (12-78) U/L Alkaline Phosphatase (45-117) U/L Troponin I (0-0.045) ng/ml Total Protein (6.4-8.2) gm/dl Albumin (3.4-5.0) gm/dl Globulin (2.5-4.0) gm/dl Albumin/Globulin Ratio (0.9-2) Lipase (73-393) U/L Urine Color Yellow Urine Appearance Clear (Clear) Urine pH 6.0 (4.5-7.5) Ur Specific [place] > 1.045 H (1.000-1.030) Urine Protein Negative (Negative) Urine Glucose (UA) Negative (Negative) Urine Ketones Negative (Negative) Urine Blood Negative (Negative) Urine Nitrite Negative (Negative) Urine Bilirubin Negative (Negative) Urine Urobilinogen Negative (Negative) Ur Leukocyte Esterase Trace H (Negative) Urine WBC (Auto) 5-10 H (0-5) /hpf Urine RBC (Auto) 0-4 (0-4) /hpf U Hyaline Cast (Auto) 1-5 (0-5) /lpf U Epithel Cells (Auto) 5-10 H (0-5) /lpf Urine Bacteria (Auto) Negative (Negative) COVID-19 Eval Order Covid19 at [facility] SARS-CoV-2 (PCR) NEGATIVE (Negative) Administered Medications Discontinued Medications Al Hydrox/Mg Hydrox/Simethicone (Aluminum/Magnesium Susp 30 Ml Udc) 30 ml PO NOW STA Stop: 03/28/21 22:05 Last Admin: 03/28/21 22:20 Dose: 30 ml Documented by: [id number] Imaging Data Radiologist's Impression: Chest X-Ray 03/28/21 19:15 XR chest 1V portable CLINICAL HISTORY: pain COMPARISON STUDY: August 10, 2017 FINDINGS: No pneumothorax. No pleural effusion. Few linear densities are seen within left lower lung which could represent atelectasis or scarring. Redemonstration of calcified lesion projecting over cardiomediastinal silhouette which is better evaluated on recent CT of the chest. Cardiomediastinal silhouette is within normal limits in size. No significant pulmonary vascular congestion.. Midline sternotomy wires and surgical beti projecting over left paramediastinal region are seen. Osseous structures: Osteopenia. Vertebral bodies are poorly seen. IMPRESSION: 1. Atelectasis or scarring within left lower lung. 2. The rest of findings as above. ACT 112: Negative or not required by law. The above report was generated using voice recognition software. It may contain grammatical, syntax or spelling errors. Electronically signed by: Georgia Caputo DO 03/28/2021 9:52 PM Abdomen/Pelvis CT 03/28/21 19:18 CT SCAN OF THE ABDOMEN AND PELVIS WITHOUT CONTRAST CLINICAL HISTORY: upper pain COMPARISON STUDY: No previous studies for comparison. Correlation is made with CT of the abdomen and pelvis performed on June 15, 2017 TECHNIQUE: CT scan of the abdomen and pelvis was performed from the lung bases to the proximal femurs. Images are reviewed in the axial, sagittal, and coronal planes. IV contrast was not administered for this examination. A dose lowering technique was utilized adhering to the principles of ALARA. CT DOSE: 576.59 mGy.cm FINDINGS: Lower chest: No large pulmonary infiltrates or consolidative lesions are seen. 5.1 x 5.8 cm partially calcified paraesophageal lesion appears similar to prior study in 2017. Liver: The unenhanced liver is normal in size, contour, and attenuation. There is no intrahepatic biliary ductal dilatation. Gallbladder: Is surgically absent. Spleen: Normal in size and attenuation. Pancreas: Unremarkable. Adrenal glands: Unremarkable. Kidneys: The unenhanced kidneys are normal in size without hydronephrosis. There is no contour deforming renal mass lesion. Multiple areas of increase attenuation is seen within bilateral renal pelvises which could represent excreted contrast from recent prior CT of the chest was performed earlier today. Bowel: Bowel loops are nondilated. Small amount of intraluminal contrast is seen within distal aspect of the large bowel. Evaluation of pelvic region is limited due to beam hardening artifact from orthopedic hardware within right hip joint. Peritoneum: There is no intraperitoneal free air or abdominal ascites. Vasculature: Abdominal aorta is nondilated with concentric calcifications within its distal aspect. Adenopathy: None. Pelvic viscera: Partially decompressed urinary bladder with excreted intravenous contrast within its lumen. Uterus is not well seen, might be surgically absent. Limited evaluation of the pelvis due to beam hardening artifact. Skeletal structures: Osteopenia. Laminectomy changes at the L4 level. Transpe dicular screws and fixating plates within L3-L5 level. IMPRESSION: 1. No acute intra-abdominal process. 2. Nondilated loops of bowel. Appendix is not well seen. 3. Status post cystectomy. 4. Excreted contrast within collecting system which limits evaluation for ne phrolithiasis. 5. Atherosclerosis. 6. Stable partially calcified large paraesophageal lesion which is unchanged since 2017 most likely representing benign etiology. Please correlate above- mentioned findings with prior history. ACT 112: Negative or not required by law. The above report was generated using voice recognition software. It may contain grammatical, syntax or spelling errors. Electronically signed by: Georgia Caputo DO 03/28/2021 8:52 PM Discharge Plan Visit Data Chief Complaint: Abdominal Pain Stated Complaint: STOMACH PAIN,PRESSING ON BY-PASS INCISION,DIARRHEA ED Provider: Tom Valero Discharge Problem: Abdominal pain, epigastric, Abnormal EKG Patient Disposition: Being Evaluated by Hospitalist Condition: Good Forms Stand Alone Forms: My [employer] Prescriptions Prescriptions: No Action calcium carbonate [Calcium 500] 500 mg calcium (1,250 mg) Tablet 1 tab PO DAILY RF: 0 escitalopram oxalate 20 mg tablet 20 mg PO QAM RF: 0 pantoprazole 40 mg Tablet,Delayed Release (Dr/Ec) 40 mg PO QAM RF: 0 psyllium 500 mg Capsule 500 mg PO DAILY Qty: 0 RF: 0 multivitamin Tablet 1 tab PO DAILY RF: 0 furosemide 40 mg tablet 40 mg PO DAILY RF: 0 atorvastatin 80 mg tablet 80 mg PO HS RF: 0 clopidogrel 75 mg tablet 75 mg PO DAILY RF: 0 acetaminophen [Tylenol Extra Strength] 500 mg Tablet 750 mg PO Q6H PRN (Reason: Pain) RF: 0 amlodipine 10 mg tablet 10 mg PO DAILY RF: 0 metoprolol tartrate 25 mg tablet 12.5 mg PO DAILY RF: 0 Referrals Referrals: Jadon Aguiar MD [Primary Care Provider] -
[2021-03-28 19:44] LABS: Basophils # (auto) 0.02 K/uL (0-0.2); Basophils % (auto) 0.4 %; Eosinophils # (auto) 0.48 K/uL (0-0.5); Eosinophils % (auto) 8.4 %; Hematocrit (blood only) 35.6 % (37-47); Hemoglobin 11.9 g/dL (12.0-16.0); Immature Granulocytes # (auto) 0.01 K/uL (0.00-0.02); Immature Granulocytes % (auto) 0.2 %; Lymphocytes # (auto) 1.84 K/uL (1.2-3.4); Lymphocytes % (auto) 32.3 %; Mean Corpuscular Hemoglobin 30.4 pg (25-34); Mean Corpuscular Hgb Conc 33.4 g/dL (32-36); Mean Platelet Volume 10.4 fL (7.4-10.4); Monocytes # (auto) 0.56 K/uL (0.11-0.59); Monocytes % (auto) 9.8 %; Neutrophils # (auto) 2.78 K/uL (1.4-6.5); Neutrophils % (auto) 48.9 %; Platelet Count 285 K/uL (130-400); RDW Coefficient of Variation 13.4 % (11.5-14.5); RDW Standard Deviation 44.5 fL (36.4-46.3); Red Blood Count 3.91 M/uL (4.2-5.4); White Blood Count 5.69 K/uL (4.8-10.8)
[2021-03-28 19:55] LABS: Partial Thromboplastin Ratio 0.8; Partial Thromboplastin Time 21.1 Seconds (21.0-31.0); Prothrombin Time 10.6 Seconds (9.0-12.0)
[2021-03-28 20:07] LABS: Alanine Aminotransferase 25 U/L (12-78); Albumin Level 4.1 gm/dl (3.4-5.0); Aspartate Aminotransferase 20 U/L (15-37); BUN Creatinine Ratio 14.5 (10-20); Blood Urea Nitrogen 17 mg/dl (7-18); Calcium 9.6 mg/dl (8.5-10.1); Carbon Dioxide 27 mmol/L (21-32); Chloride 105 mmol/L (98-107); Est GFR (African American) 51.2 ml/min; Est GFR (Non-African American) 44.1 ml/min; Glucose 109 mg/dl (70-99); Lipase 449 U/L (73-393); Potassium 3.8 mmol/L (3.5-5.1); Sodium 140 mmol/L (136-145)
[2021-03-28 20:10] LABS: D Dimer 3150 ug/L FEU (0-500)
[2021-03-28 20:12] LABS: Alkaline Phosphatase 102 U/L (45-117); Bilirubin,Total 0.6 mg/dl (0.2-1); Globulin 3.9 gm/dl (2.5-4.0); Troponin I < 0.015 ng/ml (0-0.045)
--- NOTE | 2021-03-28 20:53 | CT Scan Report ---
CT SCAN OF THE ABDOMEN AND PELVIS WITHOUT CONTRAST CLINICAL HISTORY: upper pain COMPARISON STUDY: No previous studies for comparison. Correlation is made with CT of the abdomen and pelvis performed on June 15, 2017 TECHNIQUE: CT scan of the abdomen and pelvis was performed from the lung bases to the proximal femurs . Images are reviewed in the axial, sagittal, and coronal planes. IV contrast was not administered fo r this examination. A dose lowering technique was utilized adhering to the principles of ALARA. CT DOSE: 576.59 mGy.cm FINDINGS: Lower chest: No large pulmonary infiltrates or consolidative lesions are seen. 5.1 x 5.8 cm partially calcified paraesophageal lesion appears similar to prior study in 2017. Liver: The unenhanced liver is normal in size, contour, and attenuation. There is no intrahepatic yuly iary ductal dilatation. Gallbladder: Is surgically absent. Spleen: Normal in size and attenuation. Pancreas: Unremarkable. Adrenal glands: Unremarkable. Kidneys: The unenhanced kidneys are normal in size without hydronephrosis. There is no contour deform ing renal mass lesion. Multiple areas of increase attenuation is seen within bilateral renal pelvises which could represent excreted contrast from recent prior CT of the chest was performed earlier toda y. Bowel: Bowel loops are nondilated. Small amount of intraluminal contrast is seen within distal aspect of the large bowel. Evaluation of pelvic region is limited due to beam hardening artifact from ortho pedic hardware within right hip joint. Peritoneum: There is no intraperitoneal free air or abdominal ascites. Vasculature: Abdominal aorta is nondilated with concentric calcifications within its distal aspect. Adenopathy: None. Pelvic viscera: Partially decompressed urinary bladder with excreted intravenous contrast within its lumen. Uterus is not well seen, might be surgically absent. Limited evaluation of the pelvis due to b eam hardening artifact. Skeletal structures: Osteopenia. Laminectomy changes at the L4 level. Transpedicular screws and fixat ing plates within L3-L5 level. IMPRESSION: 1. No acute intra-abdominal process. 2. Nondilated loops of bowel. Appendix is not well seen. 3. Status post cystectomy. 4. Excreted contrast within collecting system which limits evaluation for nephrolithiasis. 5. Atherosclerosis. 6. Stable partially calcified large paraesophageal lesion which is unchanged since 2017 most likely representing benign etiology. Please correlate above-mentioned findings with prior history. ACT 112: Negative or not required by law. The above report was generated using voice recognition software. It may contain grammatical, syntax o r spelling errors. Electronically signed by: Georgia Caputo DO 03/28/2021 8:52 PM
[2021-03-28 21:28] LABS: Appearance Urine Clear (Clear); Bacteria Urine Automated Negative (Negative); Bilirubin Urine Negative (Negative); Blood Urine Negative (Negative); Color Urine Yellow; Glucose Urine UA Negative (Negative); Ketones Urine Negative (Negative); Leukocyte Esterase Urine Trace (Negative); Nitrite Urine Negative (Negative); Protein Urine Negative (Negative); RBC Urine Automated 0-4 /hpf (0-4); Specific Gravity Urine > 1.045 (1.000-1.030); Urobilinogen Urine Negative (Negative)
--- NOTE | 2021-03-28 21:53 | XRay Report ---
XR chest 1V portable CLINICAL HISTORY: pain COMPARISON STUDY: August 10, 2017 FINDINGS: No pneumothorax. No pleural effusion. Few linear densities are seen within left lower lung which could represent atelectasis or scarring. R edemonstration of calcified lesion projecting over cardiomediastinal silhouette which is better evalu ated on recent CT of the chest. Cardiomediastinal silhouette is within normal limits in size. No significant pulmonary vascular congestion.. Midline sternotomy wires and surgical beti projecti ng over left paramediastinal region are seen. Osseous structures: Osteopenia. Vertebral bodies are poorly seen. IMPRESSION: 1. Atelectasis or scarring within left lower lung. 2. The rest of findings as above. ACT 112: Negative or not required by law. The above report was generated using voice recognition software. It may contain grammatical, syntax o r spelling errors. Electronically signed by: Georgia Caputo DO 03/28/2021 9:52 PM
[2021-03-28] MEDS ORDERED: ALUMINUM/MAGNESIUM SUSP 30 ML UDC PO STA (22:04)
--- NOTE | 2021-03-28 23:42 | History & Physical Report ---
Date of Service March 28, 2021 Assessment & Plan (1) Abdominal pain, epigastric: Plan: Rocio Gonzalez is a 80-year-old female with past medical history significant for recent three-vessel CABG done in [place] in the end of February; who presented for concerns and evaluation of chest pain and abdominal discomfort. Epigastric abdominal pain: -Uncertain etiology of patient's epigastric abdominal pain/chest pain with dyspnea -Given recent CABG concern is this could be presentation of atypical chest pain given current setting increase in symptoms following surgery -D-dimer 3150 -CT chest earlier today demonstrating calcified paraesophageal lesion, multiple pulmonary nodules, no evidence of pericardial effusion -CT abdomen pelvis demonstrating no acute intra-abdominal process -ESR/CRP in a.m. -Continue to trend troponins overnight -Monitor on telemetry -Echo in a.m. -Cardiology consulted for further evaluation given extensive recent cardiac history, and for assistance with patient guidance/reassurance in the setting of potential negative cardiac work-up Hypertension: -Continue amlodipine, metoprolol, furosemide Hyperlipidemia: -Continue atorvastatin 80 mg daily GERD: -Continue home pantoprazole Diet: Heart healthy CODE STATUS: Full code (2) Status post coronary artery bypass graft: (3) Hypertension: (4) Hyperlipidemia: (5) GERD (gastroesophageal reflux disease): History of Present Illness Chief Complaint: Chest pain Primary Care Provider: Jadon Aguiar MD Rocio Gonzalez is a 80-year-old female with past medical history significant for recent three-vessel CABG done in [place] in the end of February; who presented for concerns and evaluation of chest pain and abdominal discomfort. She has been struggling with GERD symptoms for many years, and it was not until recently that these reflux/abdominal pain symptoms were discussed with production leader that further evaluation was done and ultimately led to cardiac catheterization and subsequent CABG last month in [place]. Since completion of that CABG, patient has noted that she continues to have this upper abdominal discomfort, and feels like this has worsened over the last 2 weeks. Has noticed that she has been getting more mucousy sputum/reflux type discomfort over this time, and noticed that the other day she had multiple episodes of diarrhea. Additionally she notes that since the surgery she has been having difficulty catching her breath, and feelings of needing to sit upright in order to breathe easier. Earlier in the day she had a repeat CT chest for further evaluation of pulmonary nodules noticed last month. Does have discomfort with eating but this is been longstanding, has previously had endoscopy for this and then was deemed to be likely reflux related. Additionally with recent intubations from cardiac procedures she has noticed some discomfort with this, even with taking her pills. Denies exertional symptoms, or worsening. Allergies Allergy/AdvReac Type Severity Reaction Status Date / Time sugammadex Allergy Severe Bronchospas Unverified 03/28/21 20:27 ms prednisone Allergy Intermediate ELEVATED BP Verified 03/28/21 20:27 hydromorphone Allergy Mild RASH Verified 03/28/21 20:27 codeine AdvReac Intermediate NAUSEA AND Verified 03/28/21 20:27 DIZZY oxycodone AdvReac Intermediate DIZZINESS,N Verified 03/28/21 20:27 AUSEA Home Medications Medication Instructions Recorded Confirmed Type calcium carbonate 500 mg calcium 1 tab PO DAILY 11/18/18 03/28/21 History (1,250 mg) tablet (Calcium 500) escitalopram oxalate 20 mg tablet 20 mg PO QAM tab 07/14/20 03/28/21 History pantoprazole 40 mg tablet,delayed 40 mg PO QAM 11/15/20 03/28/21 History release psyllium 500 mg capsule 500 mg PO DAILY #0 12/09/20 03/28/21 History acetaminophen 500 mg tablet 750 mg PO Q6H PRN 03/28/21 03/28/21 History (Tylenol Extra Strength) amlodipine 10 mg tablet 10 mg PO DAILY 03/28/21 03/28/21 History atorvastatin 80 mg tablet 80 mg PO HS 03/28/21 03/28/21 History clopidogrel 75 mg tablet 75 mg PO DAILY 03/28/21 03/28/21 History furosemide 40 mg tablet 40 mg PO DAILY 03/28/21 03/28/21 History metoprolol tartrate 25 mg tablet 12.5 mg PO DAILY 03/28/21 03/28/21 History multivitamin 1 tab PO DAILY 03/28/21 03/28/21 History Past Med/Surg History Medical History Cervical postlaminectomy syndrome Chronic back pain Dysphagia CURRENT PROBLEM GERD (gastroesophageal reflux disease) Hyperlipidemia Hypertension Myalgia and myositis Obesity Surgical History Fusion of spine LUMBAR History of anesthesia reaction BP DROPS ?DETAILS (WAS TOLD TO HAVE PROCEDURES AT THE HOSPITAL) History of bunionectomy RT/LEFT History of cataract extraction with lens replacement History of cholecystectomy History of colonoscopy History of esophagogastroduodenoscopy (EGD) History of hysterectomy History of laminectomy CERVICAL History of repair of rotator cuff LEFT History of total hip arthroplasty Rt History of total knee replacement B/L S/P epidural steroid injection Family History Other No family history of adverse response to anesthesia Social History Smoking Status: Former smoker Tobacco Type: Cigarettes Second Hand Exposure: No; Hx Alcohol Use: Yes Alcohol type: wine Hx Substance Use: No Preferred Language: [place] Citizen Communication Ability: Effective Border Guard Required: No Beliefs That Will Affect Care: Anabaptist Anabaptist Beliefs: YARSANISM marital status: Current Living Situation: Spouse How many Children do You have: 2 Feels Safe at Home: Yes Assistive Devices: Walker Review of Systems Review of Systems: All systems reviewed & are unremarkable except as noted in HPI & below Physical Exam Constitutional: WD/WN, vitals as above Eyes: PERRL, conjunctivae normal, anicteric sclerae Respiratory: normal respiratory effort, lungs clear to auscultation Auscultation: no crackles, no rales, no rhonchi and no wheezes Cardiovascular: Rate/Rhythm: regular rate and regular rhythm Heart Sounds: no gallop, no murmur and no cardiac rub Vessels: normal peripheral pulses; no JVD Extremities: no edema Gastrointestinal (Abdomen): Inspection/Auscultation: normal bowel sounds; abdomen not distended Percussion/Palpation: + abdomen tender (epigastric) and abdomen soft; no guarding Musculoskeletal: no cyanosis or clubbing, extremities motor strength 5/5 Skin: no rashes, warm and dry Neurologic: PERRL, EOMI, accommodation nl, no face palsy, no dysarthria CN's II-XI intact bilaterally and moves all extremities Psychiatric: Orientation: alert and oriented x 3 Results & Data Results & Data ([facility]) Vital Signs (Past 12 Hours) Vital Signs Temp Pulse Pulse Resp BP BP Pulse Ox 07/19/21 20:30 71 18 160/90 H 100 03/28/21 19:20 83 83 22 173/96 H 99 03/28/21 19:04 36.4 C L 90 18 129/78 98 Laboratory Results 03/29/21 03/28/21 03/28/21 Range/Units 01:56 22:44 22:44 WBC (4.8-10.8) K/uL RBC (4.2-5.4) M/uL Hgb (12.0-16.0) g/dL Hct (37-47) % MCV (80-100) fL MCH (25-34) pg MCHC (32-36) g/dL RDW Std Deviation (36.4-46.3) fL RDW Coeff of Sarah (11.5-14.5) % Plt Count (130-400) K/uL MPV (7.4-10.4) fL Immature Gran % (Auto) % Neut % (Auto) % Lymph % (Auto) % [place] % (Auto) % Eos % (Auto) % Baso % (Auto) % Neut # (Auto) (1.4-6.5) K/uL Lymph # (Auto) (1.2-3.4) K/uL [place] # (Auto) (0.11-0.59) K/uL Eos # (Auto) (0-0.5) K/uL Baso # (Auto) (0-0.2) K/uL Immature Gran # (Auto) (0.00-0.02) K/uL PT (9.0-12.0) Seconds INR (0.9-1.1) APTT (21.0-31.0) Seconds PTT Ratio D-Dimer (0-500) ug/L FEU Sodium (136-145) mmol/L Potassium (3.5-5.1) mmol/L Chloride (98-107) mmol/L Carbon Dioxide (21-32) mmol/L Anion Gap (3-11) BUN (7-18) mg/dl Creatinine (0.6-1.2) mg/dl Est Cr Clr Drug Dosing Est GFR ( Amer) ml/min Est GFR (Non-Af Amer) ml/min BUN/Creatinine Ratio (10-20) Glucose (70-99) mg/dl Calcium (8.5-10.1) mg/dl Total Bilirubin (0.2-1) mg/dl AST (15-37) U/L ALT (12-78) U/L Alkaline Phosphatase (45-117) U/L Troponin I < 0.015 (0-0.045) ng/ml Total Protein (6.4-8.2) gm/dl Albumin (3.4-5.0) gm/dl Globulin (2.5-4.0) gm/dl Albumin/Globulin Ratio (0.9-2) Lipase (73-393) U/L Urine Color Urine Appearance (Clear) Urine pH (4.5-7.5) Ur Specific [place] (1.000-1.030) Urine Protein (Negative) Urine Glucose (UA) (Negative) Urine Ketones (Negative) Urine Blood (Negative) Urine Nitrite (Negative) Urine Bilirubin (Negative) Urine Urobilinogen (Negative) Ur Leukocyte Esterase (Negative) Urine WBC (Auto) (0-5) /hpf Urine RBC (Auto) (0-4) /hpf U Hyaline Cast (Auto) (0-5) /lpf U Epithel Cells (Auto) (0-5) /lpf Urine Bacteria (Auto) (Negative) COVID-19 Eval Order Covid19 at [facility] SARS-CoV-2 (PCR) NEGATIVE (Negative) 03/28/21 03/28/21 03/28/21 Range/Units 21:10 19:35 19:35 WBC (4.8-10.8) K/uL RBC (4.2-5.4) M/uL Hgb (12.0-16.0) g/dL Hct (37-47) % MCV (80-100) fL MCH (25-34) pg MCHC (32-36) g/dL RDW Std Deviation (36.4-46.3) fL RDW Coeff of Sarah (11.5-14.5) % Plt Count (130-400) K/uL MPV (7.4-10.4) fL Immature Gran % (Auto) % Neut % (Auto) % Lymph % (Auto) % [place] % (Auto) % Eos % (Auto) % Baso % (Auto) % Neut # (Auto) (1.4-6.5) K/uL Lymph # (Auto) (1.2-3.4) K/uL [place] # (Auto) (0.11-0.59) K/uL Eos # (Auto) (0-0.5) K/uL Baso # (Auto) (0-0.2) K/uL Immature Gran # (Auto) (0.00-0.02) K/uL PT 10.6 (9.0-12.0) Seconds INR 1.0 (0.9-1.1) APTT 21.1 (21.0-31.0) Seconds PTT Ratio 0.8 D-Dimer 3150 H* (0-500) ug/L FEU Sodium 140 (136-145) mmol/L Potassium 3.8 (3.5-5.1) mmol/L Chloride 105 (98-107) mmol/L Carbon Dioxide 27 (21-32) mmol/L Anion Gap 8.0 (3-11) BUN 17 (7-18) mg/dl Creatinine 1.18 (0.6-1.2) mg/dl Est Cr Clr Drug Dosing Not Reportable Est GFR ( Amer) 51.2 ml/min Est GFR (Non-Af Amer) 44.1 ml/min BUN/Creatinine Ratio 14.5 (10-20) Glucose 109 H (70-99) mg/dl Calcium 9.6 (8.5-10.1) mg/dl Total Bilirubin 0.6 (0.2-1) mg/dl AST 20 (15-37) U/L ALT 25 (12-78) U/L Alkaline Phosphatase 102 (45-117) U/L Troponin I < 0.015 (0-0.045) ng/ml Total Protein 8.0 (6.4-8.2) gm/dl Albumin 4.1 (3.4-5.0) gm/dl Globulin 3.9 (2.5-4.0) gm/dl Albumin/Globulin Ratio 1.0 (0.9-2) Lipase 449 H (73-393) U/L Urine Color Yellow Urine Appearance Clear (Clear) Urine pH 6.0 (4.5-7.5) Ur Specific [place] > 1.045 H (1.000-1.030) Urine Protein Negative (Negative) Urine Glucose (UA) Negative (Negative) Urine Ketones Negative (Negative) Urine Blood Negative (Negative) Urine Nitrite Negative (Negative) Urine Bilirubin Negative (Negative) Urine Urobilinogen Negative (Negative) Ur Leukocyte Esterase Trace H (Negative) Urine WBC (Auto) 5-10 H (0-5) /hpf Urine RBC (Auto) 0-4 (0-4) /hpf U Hyaline Cast (Auto) 1-5 (0-5) /lpf U Epithel Cells (Auto) 5-10 H (0-5) /lpf Urine Bacteria (Auto) Negative (Negative) COVID-19 Eval Order SARS-CoV-2 (PCR) (Negative) 03/28/21 Range/Units 19:35 WBC 5.69 (4.8-10.8) K/uL RBC 3.91 L (4.2-5.4) M/uL Hgb 11.9 L (12.0-16.0) g/dL Hct 35.6 L (37-47) % MCV 91.0 (80-100) fL MCH 30.4 (25-34) pg MCHC 33.4 (32-36) g/dL RDW Std Deviation 44.5 (36.4-46.3) fL RDW Coeff of Sarah 13.4 (11.5-14.5) % Plt Count 285 (130-400) K/uL MPV 10.4 (7.4-10.4) fL Immature Gran % (Auto) 0.2 % Neut % (Auto) 48.9 % Lymph % (Auto) 32.3 % [place] % (Auto) 9.8 % Eos % (Auto) 8.4 % Baso % (Auto) 0.4 % Neut # (Auto) 2.78 (1.4-6.5) K/uL Lymph # (Auto) 1.84 (1.2-3.4) K/uL [place] # (Auto) 0.56 (0.11-0.59) K/uL Eos # (Auto) 0.48 (0-0.5) K/uL Baso # (Auto) 0.02 (0-0.2) K/uL Immature Gran # (Auto) 0.01 (0.00-0.02) K/uL PT (9.0-12.0) Seconds INR (0.9-1.1) APTT (21.0-31.0) Seconds PTT Ratio D-Dimer (0-500) ug/L FEU Sodium (136-145) mmol/L Potassium (3.5-5.1) mmol/L Chloride (98-107) mmol/L Carbon Dioxide (21-32) mmol/L Anion Gap (3-11) BUN (7-18) mg/dl Creatinine (0.6-1.2) mg/dl Est Cr Clr Drug Dosing Est GFR ( Amer) ml/min Est GFR (Non-Af Amer) ml/min BUN/Creatinine Ratio (10-20) Glucose (70-99) mg/dl Calcium (8.5-10.1) mg/dl Total Bilirubin (0.2-1) mg/dl AST (15-37) U/L ALT (12-78) U/L Alkaline Phosphatase (45-117) U/L Troponin I (0-0.045) ng/ml Total Protein (6.4-8.2) gm/dl Albumin (3.4-5.0) gm/dl Globulin (2.5-4.0) gm/dl Albumin/Globulin Ratio (0.9-2) Lipase (73-393) U/L Urine Color Urine Appearance (Clear) Urine pH (4.5-7.5) Ur Specific [place] (1.000-1.030) Urine Protein (Negative) Urine Glucose (UA) (Negative) Urine Ketones (Negative) Urine Blood (Negative) Urine Nitrite (Negative) Urine Bilirubin (Negative) Urine Urobilinogen (Negative) Ur Leukocyte Esterase (Negative) Urine WBC (Auto) (0-5) /hpf Urine RBC (Auto) (0-4) /hpf U Hyaline Cast (Auto) (0-5) /lpf U Epithel Cells (Auto) (0-5) /lpf Urine Bacteria (Auto) (Negative) COVID-19 Eval Order SARS-CoV-2 (PCR) (Negative) Medications Administered Home Medication List Medication Instructions Recorded calcium carbonate 500 mg calcium 1 tab PO DAILY 11/18/18 (1,250 mg) tablet (Calcium 500) escitalopram oxalate 20 mg tablet 20 mg PO QAM tab 07/14/20 pantoprazole 40 mg tablet,delayed 40 mg PO QAM 11/15/20 release psyllium 500 mg capsule 500 mg PO DAILY #0 12/09/20 acetaminophen 500 mg tablet 750 mg PO Q6H PRN 03/28/21 (Tylenol Extra Strength) amlodipine 10 mg tablet 10 mg PO DAILY 03/28/21 atorvastatin 80 mg tablet 80 mg PO HS 03/28/21 clopidogrel 75 mg tablet 75 mg PO DAILY 03/28/21 furosemide 40 mg tablet 40 mg PO DAILY 03/28/21 metoprolol tartrate 25 mg tablet 12.5 mg PO DAILY 03/28/21 multivitamin 1 tab PO DAILY 03/28/21 Supervising Physician Co-Signing Physician Notes Attending addendum: I have physically seen this patient, have supervised the medical residents activities, and agree with the H&P unless as otherwise noted. Assessment and Plan: Epigastric abdominal pain/chest pain/BROOKE- The patient will be admitted to telemetry for serial cardiac enzymes, serial EKG's, cardiac rhythm monitoring and a 2-D echocardiogram with Dopplers. D-dimer 3150 CT angiography chest unable to be done now due to recent contrast dye used for CT chest earlier in the morning CT angiography can be performed tomorrow, or possibly VQ scan if concerning. Venous Doppler bilateral lower extremity negative for DVT this evening Hypertension- Continue amlodipine, metoprolol and furosemide with hold parameters Hyperlipidemia- Continue atorvastatin 80 mg daily Check a fasting lipid panel GERD- Continue pantoprazole Remaining orders and notations as noted Resident Activity Tracking Resident Involvement: Resident Care Provided Care Provided: Adult [facility] Medicine
[2021-03-29] MEDS ORDERED: NITROGLYCERIN SL 0.4 MG/TAB TAB SL PRN (01:15)
[2021-03-29] MEDS ORDERED: MoRPHine SULFATE 2 MG/ML CARP IV PRN (01:15)
[2021-03-29] MEDS ORDERED: MAGNESIUM HYDROXIDE SUSP 30 ML UDC PO PRN (01:15)
[2021-03-29] MEDS ORDERED: POLYETHYLENE (MIRALAX) 17 GM PACK PO PRN (01:15)
[2021-03-29] MEDS ORDERED: ONDANSETRON INJ 2 MG/ML 2 ML VIAL IV PRN (01:15)
[2021-03-29] MEDS ORDERED: ACETAMINOPHEN 500 MG TAB PO PRN (01:18)
[2021-03-29] MEDS ORDERED: METOPROLOL TARTRATE 25 MG TAB PO SCH (09:00)
--- NOTE | 2021-03-29 09:22 | Cardiology Consultation ---
Date of Consultation March 29, 2021 Assessment & Plan (1) Status post coronary artery bypass graft: IMPRESSION: 1. Coronary artery disease status post coronary bypass grafting x3 with a MURRAY to the LAD, SVG to the OM and an SVG to the PDA (02/28). 2. Cardiac catheterization with 70% distal left main lesion; 70% proximal LAD lesion, 70% D1 lesion and a small severely diseased vessel; no significant circumflex disease; 60% proximal RCA with a 70% mid RCA and a 50% distal RCA lesion. 3. Normal LV size and function postoperatively with moderate RV dysfunction. 4. Postoperative respiratory failure. 5. Hypertension. 6. A 1-cm spiculated lesion in the left lower lobe. 7. Preoperative carotid ultrasound: No significant hemodynamically stenosis. Ms. Gonzalez did have changes on her EKG with lateral st depressions and t wave inversions. She does not have exertional symptoms. She does have post prandial symptoms which could possilby represent angina. Her troponins were negative. Her echo showed normal LVF and did not show wma. Mild mitral and tricuspid regurg. She did have on her cardiac cath previous to her CABG a finding of a 70% D1 lesion and a small severely diseased vessel which was not amenable to intervention which could be causing her EKG changes and possible angina. I will increase her beta mikael to see if this brings her any relief. It will also help with her elevated blood pressures. She did have a CT chest with IV contrast which did not show any PE just before this admission. Her D-dimer is elevated but could be secondary to her postoperative state. She did not have dvt on her US. History of Present Illness Attending Physician: Taj Franks DO History of Present Illness Ms. Gonzalez presented to the ED for chest pain and abdominal discomfort. She has a long history of poorly controlled GERD. She is also status post CABG 02/25 at [facility]. Since her CABG, she has had upper abdominal discomfort, worsening over hte last two weeks. She also complains of diarrhea. She is not having any exertional symptoms. Her chest discomfort is mainly after she begins having upper abdominal bloating/pain and generally occurs with laying down. Her pain is mainly after eating. She is not sob. No palpitations. Allergies Allergy/AdvReac Type Severity Reaction Status Date / Time sugammadex Allergy Severe Bronchospas Unverified 07/19/21 20:27 ms prednisone Allergy Intermediate ELEVATED BP Verified 03/28/21 20:27 hydromorphone Allergy Mild RASH Verified 03/28/21 20:27 codeine AdvReac Intermediate NAUSEA AND Verified 03/28/21 20:27 DIZZY oxycodone AdvReac Intermediate DIZZINESS,N Verified 03/28/21 20:27 AUSEA Home Medications Medication Instructions Recorded Confirmed Type calcium carbonate 500 mg calcium 1 tab PO DAILY 11/18/18 03/28/21 History (1,250 mg) tablet (Calcium 500) escitalopram oxalate 20 mg tablet 20 mg PO QAM tab 07/14/20 03/28/21 History pantoprazole 40 mg tablet,delayed 40 mg PO QAM 11/15/20 03/28/21 History release psyllium 500 mg capsule 500 mg PO DAILY #0 12/09/20 03/28/21 History acetaminophen 500 mg tablet 750 mg PO Q6H PRN 03/28/21 03/28/21 History (Tylenol Extra Strength) amlodipine 10 mg tablet 10 mg PO DAILY 03/28/21 03/28/21 History atorvastatin 80 mg tablet 80 mg PO HS 03/28/21 03/28/21 History clopidogrel 75 mg tablet 75 mg PO DAILY 03/28/21 03/28/21 History furosemide 40 mg tablet 40 mg PO DAILY 03/28/21 03/28/21 History metoprolol tartrate 25 mg tablet 12.5 mg PO DAILY 03/28/21 03/28/21 History multivitamin 1 tab PO DAILY 03/28/21 03/28/21 History Patient History Medical History Cervical postlaminectomy syndrome Chronic back pain Dysphagia CURRENT PROBLEM GERD (gastroesophageal reflux disease) Hyperlipidemia Hypertension Myalgia and myositis Obesity Surgical History Fusion of spine LUMBAR History of anesthesia reaction BP DROPS ?DETAILS (WAS TOLD TO HAVE PROCEDURES AT THE HOSPITAL) History of bunionectomy RT/LEFT History of cataract extraction with lens replacement History of cholecystectomy History of colonoscopy History of esophagogastroduodenoscopy (EGD) History of hysterectomy History of laminectomy CERVICAL History of repair of rotator cuff LEFT History of total hip arthroplasty Rt History of total knee replacement B/L S/P epidural steroid injection Family History Other No family history of adverse response to anesthesia Social History Smoking Status: Former smoker Tobacco Type: Cigarettes Second Hand Exposure: No; Hx Alcohol Use: Yes Alcohol type: wine Hx Substance Use: No Preferred Language: Icelandic Communication Ability: Effective 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 Beliefs That Will Affect Care: Taoism Taoism Beliefs: ANABAPTISM marital status: Current Living Situation: Spouse How many Children do You have: 2 Feels Safe at Home: Yes Assistive Devices: Walker Review of Systems Review of Systems: All systems reviewed & are unremarkable except as noted in HPI & below Physical Exam Constitutional: WD/WN, vitals as above Respiratory: normal respiratory effort, lungs clear to auscultation Cardiovascular: Rate/Rhythm: regular rate and regular rhythm Heart Sounds: + murmur (systolic 2/6 lusb ) Gastrointestinal (Abdomen): Inspection/Auscultation: abdomen normal to inspection Percussion/Palpation: abdomen soft; abdomen nontender, no guarding and abdomen not rigid Neurologic: moves all extremities and awake Psychiatric: A+Ox3, euthymic affect Results & Data ([facility]) Vital Signs (Past 12 Hours) Vital Signs Temp Pulse Pulse Resp BP BP BP 03/29/21 07:33 36.9 C 66 19 149/69 H 03/29/21 04:35 37.3 C 66 18 148/70 H 03/29/21 02:14 70 03/29/21 01:33 36.9 C 67 14 175/75 H 03/29/21 00:30 84 19 126/100 03/29/21 00:00 67 17 163/72 H 03/28/21 23:30 74 24 156/86 H 03/28/21 23:00 70 24 130/101 H 03/28/21 22:30 71 13 175/76 H 03/28/21 22:00 77 16 155/89 H 03/28/21 21:30 74 14 167/77 H Pulse Ox 03/29/21 07:33 98 03/29/21 04:35 98 03/29/21 02:14 03/29/21 01:33 99 03/29/21 00:30 97 03/29/21 00:00 96 03/28/21 23:30 97 03/28/21 23:00 95 03/28/21 22:30 98 03/28/21 22:00 98 03/28/21 21:30 100
[2021-03-29 09:43] LABS: Basophils # (auto) 0.03 K/uL (0-0.2); Basophils % (auto) 0.5 %; Eosinophils # (auto) 0.47 K/uL (0-0.5); Eosinophils % (auto) 8.5 %; Hematocrit (blood only) 34.5 % (37-47); Hemoglobin 11.6 g/dL (12.0-16.0); Immature Granulocytes # (auto) 0.01 K/uL (0.00-0.02); Immature Granulocytes % (auto) 0.2 %; Lymphocytes # (auto) 1.73 K/uL (1.2-3.4); Lymphocytes % (auto) 31.2 %; Mean Corpuscular Hemoglobin 30.9 pg (25-34); Mean Corpuscular Hgb Conc 33.6 g/dL (32-36); Mean Platelet Volume 10.6 fL (7.4-10.4); Monocytes # (auto) 0.58 K/uL (0.11-0.59); Monocytes % (auto) 10.5 %; Neutrophils # (auto) 2.72 K/uL (1.4-6.5); Neutrophils % (auto) 49.1 %; Platelet Count 258 K/uL (130-400); RDW Coefficient of Variation 13.3 % (11.5-14.5); RDW Standard Deviation 45.2 fL (36.4-46.3); Red Blood Count 3.75 M/uL (4.2-5.4); White Blood Count 5.54 K/uL (4.8-10.8)
[2021-03-29 10:05] LABS: Alanine Aminotransferase 25 U/L (12-78); Albumin Level 3.8 gm/dl (3.4-5.0); Aspartate Aminotransferase 20 U/L (15-37); Blood Urea Nitrogen 15 mg/dl (7-18); C Reactive Protein < 0.29 mg/dl (0-0.29); Calcium 9.2 mg/dl (8.5-10.1); Carbon Dioxide 25 mmol/L (21-32); Chloride 108 mmol/L (98-107); Creatinine Clr Calc Pharmacy 49.2 ml/min; Est GFR (African American) 60.3 ml/min; Glucose 114 mg/dl (70-99); Potassium 3.7 mmol/L (3.5-5.1); Sodium 141 mmol/L (136-145)
[2021-03-29 10:07] LABS: Albumin Globulin Ratio 1.1 (0.9-2); Alkaline Phosphatase 99 U/L (45-117); Bilirubin,Total 0.8 mg/dl (0.2-1); Globulin 3.4 gm/dl (2.5-4.0); Total Protein 7.2 gm/dl (6.4-8.2)
--- NOTE | 2021-03-29 10:22 | XCELERA ---
[id number]
[2021-03-29] MEDS: PANTOprazole 40 MG TAB PO SCH (10:40)
[2021-03-29] MEDS: ESCITALOPRAM OXALATE 20 MG TAB PO SCH (10:40)
[2021-03-29] MEDS: FUROSEMIDE 40 MG TAB PO SCH (10:40)
[2021-03-29] MEDS: amLODIPine BESYLATE 5 MG TAB PO SCH (10:40)
[2021-03-29] MEDS: CLOPIDOGREL BISULFATE 75 MG TAB PO SCH (10:40)
--- NOTE | 2021-03-29 11:22 | Hospitalist Progress Note ---
Date of Service March 29, 2021 Assessment & Plan Admission and Anticipated Discharge Date Admission Date: March 28, 2021 Results & Data Results & Data ([facility]) Vital Signs (Past 12 Hours) Vital Signs Temp Pulse Pulse Resp BP BP BP 03/29/21 07:33 36.9 C 66 19 149/69 H 03/29/21 04:35 37.3 C 66 18 148/70 H 03/29/21 02:14 70 03/29/21 01:33 36.9 C 67 14 175/75 H 03/29/21 00:30 84 19 126/100 03/29/21 00:00 67 17 163/72 H 03/28/21 23:30 74 24 156/86 H Pulse Ox 03/29/21 07:33 98 03/29/21 04:35 98 03/29/21 02:14 03/29/21 01:33 99 03/29/21 00:30 97 03/29/21 00:00 96 03/28/21 23:30 97
--- NOTE | 2021-03-29 11:28 | Medical Student Progress Note ---
Date of Service March 29, 2021 Assessment & Plan (1) Abdominal pain, epigastric: Plan: Rocio Gonzalez is a 80-year-old female with past medical history significant for recent three-vessel CABG done in [place] in the end of February; who presented for concerns and evaluation of chest pain and abdominal discomfort. Epigastric abdominal pain: -Uncertain etiology of patient's epigastric abdominal pain/chest pain with dyspnea -Given recent CABG concern is this could be presentation of atypical chest pain given current setting increase in symptoms following surgery -D-dimer 3150 -CT chest earlier today demonstrating calcified paraesophageal lesion, multiple pulmonary nodules, no evidence of pericardial effusion -CT abdomen pelvis demonstrating no acute intra-abdominal process -ESR/CRP in a.m. -Continue to trend troponins overnight -Monitor on telemetry -Echo in a.m. -Cardiology consulted for further evaluation given extensive recent cardiac history, and for assistance with patient guidance/reassurance in the setting of potential negative cardiac work-up Hypertension: -Continue amlodipine, metoprolol, furosemide Hyperlipidemia: -Continue atorvastatin 80 mg daily GERD: -Continue home pantoprazole Diet: Heart healthy CODE STATUS: Full code (2) Status post coronary artery bypass graft: (3) Hypertension: (4) Hyperlipidemia: (5) GERD (gastroesophageal reflux disease): Admission and Anticipated Discharge Date Admission Date: March 28, 2021 Physical Exam Constitutional: WD/WN, vitals as above Eyes: PERRL, conjunctivae normal, anicteric sclerae Respiratory: normal respiratory effort, lungs clear to auscultation Auscultation: no crackles, no rales, no rhonchi and no wheezes Cardiovascular: Rate/Rhythm: regular rate and regular rhythm Heart Sounds: no gallop, no murmur and no cardiac rub Vessels: normal peripheral pulses; no JVD Extremities: no edema Gastrointestinal (Abdomen): Inspection/Auscultation: normal bowel sounds; abdomen not distended Percussion/Palpation: + abdomen tender (epigastric) and abdomen soft; no guarding Musculoskeletal: no cyanosis or clubbing, extremities motor strength 5/5 Skin: no rashes, warm and dry Neurologic: PERRL, EOMI, accommodation nl, no face palsy, no dysarthria CN's II-XI intact bilaterally and moves all extremities Psychiatric: Orientation: alert and oriented x 3 Results & Data ([facility]) Vital Signs (Past 12 Hours) Vital Signs Temp Pulse Pulse Resp BP BP BP 03/29/21 07:33 36.9 C 66 19 149/69 H 03/29/21 04:35 37.3 C 66 18 148/70 H 03/29/21 02:14 70 03/29/21 01:33 36.9 C 67 14 175/75 H 03/29/21 00:30 84 19 126/100 03/29/21 00:00 67 17 163/72 H 03/28/21 23:30 74 24 156/86 H Pulse Ox 03/29/21 07:33 98 03/29/21 04:35 98 03/29/21 02:14 03/29/21 01:33 99 03/29/21 00:30 97 03/29/21 00:00 96 03/28/21 23:30 97
[2021-03-29] MEDS: FAMOTIDINE 40 MG TABLET PO SCH (11:48)
--- NOTE | 2021-03-29 12:17 | Medical Student Progress Note ---
Date of Service March 29, 2021 Assessment & Plan (1) Abdominal pain, epigastric: Plan: Rocio Gonzalez is a 80-year-old female with past medical history significant for recent three-vessel CABG done in [place] in the end of February; who presented for concerns and evaluation of abdominal discomfort. Epigastric abdominal pain: -Uncertain etiology of patient's epigastric abdominal pain -Given recent CABG concern is this could be presentation of atypical chest pain given current setting increase in symptoms following surgery -Cardiology consulted appreciated, think abdominal pain is likely not cardiac in origin -Supportive of noncardiac etiology: Echo with Contrast - no remarkable findings; negative Troponin x2 -D-dimer is elevated at 3150 -Ordered venous ultrasound for bilateral lower extremities to investigate -Continue monitoring on telemetry -CT abdomen pelvis demonstrating no acute intra-abdominal process -Recent EGD in 01/2021 relatively unremarkable (few polyps) -Lipase slightly elevated at 449 -ESR, CRP within normal limits -Longstanding GERD Hx not well managed with pantoprazole -Begin famotidine 40 mg PO qAM along with home pantoprazole to see if it provides epigastric relief -Schedule abdominal u/s to investigate further GERD: -Continue home pantoprazole Pulmonary Nodule: -CT chest earlier today demonstrating calcified paraesophageal lesion, multiple pulmonary nodules (largest was 10x5mm), no evidence of pericardial effusion -Scheduled outpatient pulmonology follow-up and a CT scan in 3 months to monitor Hypertension: -Continue amlodipine, metoprolol, furosemide Hyperlipidemia: -Continue atorvastatin 80 mg daily Diet: Heart healthy CODE STATUS: Full code (2) GERD (gastroesophageal reflux disease): (3) Status post coronary artery bypass graft: (4) Hypertension: (5) Hyperlipidemia: Admission and Anticipated Discharge Date Admission Date: March 28, 2021 Supervising Attestation I personally examined the patient and verified all sparks points of history and exam, discussed case, and agree with decision making with Adama Chavez MS4 and Dr Tafoya. Had bypass at [place] about a month ago, went to rehab until about 10 days ago, home since then. Noted at rehab she started with some degree of indigestion and upper abdominal pain, as well as bloating and food intolerance. At home she noted smaller stools and sometimes feeling like she had to strain to stool. Then about 2 days prior to admission, much worse with her reflux/indigestion symptoms, as well as diarrhea including a degree of fecal incontinence. She describes the diarrhea as both chunky and watery. No significant abdominal painjust bloating/nausea/discomfort. No fevers chills or sweats. No sick contacts. Chest pressure that she had prior to CABG has not come back. Vitals noted, in general she is awake and alert pleasant does appear anxious but no physical distress. HEENT normocephalic atraumatic mucous membranes moist. Breathing unlabored no accessory muscle use good effort. Abdomen is soft mild to moderate distention epigastric tenderness without guarding rebound or rigidity, no other abdominal tenderness. Neuro without focal deficits. Abdominal painseems to be both upper GI related to indigestion and lower GI related to bloating and constipationI suspect her diarrhea is constipation with overflowparticularly given that her complaint of diarrhea would be incongruous otherwise with the observed appearance of some fairly sizable balls of solid stool on her CT scan. Further corroborating this is her story of a lot of physiologic and emotional stresswhich would fire a perforated flag nervous system leading to constipationand her history that seem to be that of progressive constipation at home prior to the onset of the diarrhea. How much of her upper GI complaints are purely upper GI versus secondary to the bad constipation remains to be seenbut we will treat for both. For upper GIPPI, H2, Carafate. For g of MiraLAX now and follow. Patient/ expressed understanding. Fortunately nothing about this appears to be cardiac, agree with cardiology assessment and and appreciate their input. Lung nodulewe will touch base with PCP as there is possibly some imaging from whenever she lived in [place] that might be of relevance, otherwise seems to be something that would be most appropriate for for serial imaging and follow-up. Otherwise as above Time in the room 3:10 PM, time out of the room 4 PM, greater than 30 minutes [id number]. Subjective Rocio Gonzalez is a 80-year-old female with past medical history significant for recent three-vessel CABG done in [place] in the end of February; who presented for concerns and evaluation of chest pain and abdominal discomfort. She has been struggling with GERD symptoms for many years, and it was not until recently that these reflux/abdominal pain symptoms were discussed with complaint supervisor that further evaluation was done and ultimately led to cardiac catheterization and subsequent CABG last month in [place]. Since completion of that CABG, patient has noted that she continues to have this upper abdominal discomfort, and feels like this has worsened over the last 2 weeks. Has noticed that she has been getting more mucousy sputum/reflux type discomfort over this time, and noticed that the other day she had multiple episodes of diarrhea. Additionally she notes that since the surgery she has been having difficulty catching her breath, and feelings of needing to sit upright in order to breathe easier. Earlier in the day she had a repeat CT chest for further evaluation of pulmonary nodules noticed last month. Does have discomfort with eating but this is been longst anding, has previously had endoscopy for this and then was deemed to be likely reflux related. Additionally with recent intubations from cardiac procedures she has noticed some discomfort with this, even with taking her pills. Denies exertional symptoms, or worsening. Overnight, she is still having upper abdominal pain and a consistent uncomfortable/bloating feeling in that area. She is a bit concerned because the pain she has had since her CABG were usually exacerbated by consumption of food, however, the pain she is currently having is ongoing and she hasn't had good since 1230 PM 03/28. Of note, she had a bout of diarrhea, some mild shortness of breath that is relieved by sitting up, and a mucousy sputum that incessantly comes up, worsening at night. She denies fever, chills, chest pain, palpitation, nausea, vomiting. Review of Systems Review of Systems: All systems reviewed & are unremarkable except as noted in Subjective Physical Exam Constitutional: WD/WN, vitals as above Eyes: PERRL, conjunctivae normal, anicteric sclerae Respiratory: normal respiratory effort, lungs clear to auscultation Auscultation: no crackles, no rales, no rhonchi and no wheezes Cardiovascular: Rate/Rhythm: regular rate and regular rhythm Heart Sounds: no gallop, no murmur and no cardiac rub Vessels: normal peripheral pulses; no JVD Extremities: no edema Gastrointestinal (Abdomen): Inspection/Auscultation: normal bowel sounds; abdomen not distended Percussion/Palpation: + abdomen tender (epigastric, LUQ) and abdomen soft; no guarding Musculoskeletal: no cyanosis or clubbing, extremities motor strength 5/5 Skin: no rashes, warm and dry Psychiatric: Orientation: alert and oriented x 3 Results & Data ([facility]) Vital Signs (Past 12 Hours) Vital Signs Temp Pulse Pulse Resp BP BP BP 03/29/21 11:44 37.1 C 84 19 153/76 H 03/29/21 07:33 36.9 C 66 19 149/69 H 03/29/21 04:35 37.3 C 66 18 148/70 H 03/29/21 02:14 70 03/29/21 01:33 36.9 C 67 14 175/75 H 03/29/21 00:30 84 19 126/100 Pulse Ox 03/29/21 11:44 99 03/29/21 07:33 98 03/29/21 04:35 98 03/29/21 02:14 03/29/21 01:33 99 03/29/21 00:30 97 Laboratory Results Laboratory Results WBC 5.54 K/uL (4.8-10.8) 03/29/21 09:10 RBC 3.75 M/uL (4.2-5.4) L 03/29/21 09:10 Hgb 11.6 g/dL (12.0-16.0) L 03/29/21 09:10 Hct 34.5 % (37-47) L 03/29/21 09:10 MCV 92.0 fL (80-100) 03/29/21 09:10 MCH 30.9 pg (25-34) 03/29/21 09:10 MCHC 33.6 g/dL (32-36) 03/29/21 09:10 RDW Std Deviation 45.2 fL (36.4-46.3) 03/29/21 09:10 RDW Coeff of Sarah 13.3 % (11.5-14.5) 03/29/21 09:10 Plt Count 258 K/uL (130-400) 03/29/21 09:10 MPV 10.6 fL (7.4-10.4) H 03/29/21 09:10 Immature Gran % (Auto) 0.2 % 03/29/21 09:10 Neut % (Auto) 49.1 % 03/29/21 09:10 Lymph % (Auto) 31.2 % 03/29/21 09:10 [place] % (Auto) 10.5 % 03/29/21 09:10 Eos % (Auto) 8.5 % 03/29/21 09:10 Baso % (Auto) 0.5 % 03/29/21 09:10 Neut # (Auto) 2.72 K/uL (1.4-6.5) 03/29/21 09:10 Lymph # (Auto) 1.73 K/uL (1.2-3.4) 03/29/21 09:10 [place] # (Auto) 0.58 K/uL (0.11-0.59) 03/29/21 09:10 Eos # (Auto) 0.47 K/uL (0-0.5) 03/29/21 09:10 Baso # (Auto) 0.03 K/uL (0-0.2) 03/29/21 09:10 Immature Gran # (Auto) 0.01 K/uL (0.00-0.02) 03/29/21 09:10 ESR 17 mm/hr (0-30) 03/29/21 09:10 PT 10.6 Seconds (9.0-12.0) 03/28/21 19:35 INR 1.0 (0.9-1.1) 03/28/21 19:35 APTT 21.1 Seconds (21.0-31.0) 03/28/21 19:35 PTT Ratio 0.8 03/28/21 19:35 D-Dimer 3150 ug/L FEU (0-500) H* 03/28/21 19:35 Sodium 141 mmol/L (136-145) 03/29/21 09:10 Potassium 3.7 mmol/L (3.5-5.1) 03/29/21 09:10 Chloride 108 mmol/L (98-107) H 03/29/21 09:10 Carbon Dioxide 25 mmol/L (21-32) 03/29/21 09:10 Anion Gap 8.0 (3-11) 03/29/21 09:10 BUN 15 mg/dl (7-18) 03/29/21 09:10 Creatinine 1.03 mg/dl (0.6-1.2) 03/29/21 09:10 Est Cr Clr Drug Dosing 49.2 ml/min 03/29/21 09:10 Est GFR ( Amer) 60.3 ml/min 03/29/21 09:10 Est GFR (Non-Af Amer) 52.0 ml/min 03/29/21 09:10 BUN/Creatinine Ratio 15.0 (10-20) 03/29/21 09:10 Glucose 114 mg/dl (70-99) H 03/29/21 09:10 Calcium 9.2 mg/dl (8.5-10.1) 03/29/21 09:10 Total Bilirubin 0.8 mg/dl (0.2-1) 03/29/21 09:10 AST 20 U/L (15-37) 03/29/21 09:10 ALT 25 U/L (12-78) 03/29/21 09:10 Alkaline Phosphatase 99 U/L (45-117) 03/29/21 09:10 Troponin I < 0.015 ng/ml (0-0.045) 03/29/21 09:10 C-Reactive Protein < 0.29 mg/dl (0-0.29) 03/29/21 09:10 Total Protein 7.2 gm/dl (6.4-8.2) 03/29/21 09:10 Albumin 3.8 gm/dl (3.4-5.0) 03/29/21 09:10 Globulin 3.4 gm/dl (2.5-4.0) 03/29/21 09:10 Albumin/Globulin Ratio 1.1 (0.9-2) 03/29/21 09:10 Lipase 449 U/L (73-393) H 03/28/21 19:35 Urine Color Yellow 03/28/21 21:10 Urine Appearance Clear (Clear) 03/28/21 21:10 Urine pH 6.0 (4.5-7.5) 03/28/21 21:10 Ur Specific [place] > 1.045 (1.000-1.030) H 03/28/21 21:10 Urine Protein Negative (Negative) 03/28/21 21:10 Urine Glucose (UA) Negative (Negative) 03/28/21 21:10 Urine Ketones Negative (Negative) 03/28/21 21:10 Urine Blood Negative (Negative) 03/28/21 21:10 Urine Nitrite Negative (Negative) 03/28/21 21:10 Urine Bilirubin Negative (Negative) 03/28/21 21:10 Urine Urobilinogen Negative (Negative) 03/28/21 21:10 Ur Leukocyte Esterase Trace (Negative) H 03/28/21 21:10 Urine WBC (Auto) 5-10 /hpf (0-5) H 03/28/21 21:10 Urine RBC (Auto) 0-4 /hpf (0-4) 03/28/21 21:10 U Hyaline Cast (Auto) 1-5 /lpf (0-5) 03/28/21 21:10 U Epithel Cells (Auto) 5-10 /lpf (0-5) H 03/28/21 21:10 Urine Bacteria (Auto) Negative (Negative) 03/28/21 21:10 COVID-19 Eval Order Covid19 at [facility] 03/28/21 22:44 SARS-CoV-2 (PCR) NEGATIVE (Negative) 03/28/21 22:44 Impressions Chest X-Ray 03/28/21 19:15 XR chest 1V portable CLINICAL HISTORY: pain COMPARISON STUDY: August 10, 2017 FINDINGS: No pneumothorax. No pleural effusion. Few linear densities are seen within left lower lung which could represent atelectasis or scarring. Redemonstration of calcified lesion projecting over cardiomediastinal silhouette which is better evaluated on recent CT of the chest. Cardiomediastinal silhouette is within normal limits in size. No significant pulmonary vascular congestion.. Midline sternotomy wires and surgical beti projecting over left paramediastinal region are seen. Osseous structures: Osteopenia. Vertebral bodies are poorly seen. IMPRESSION: 1. Atelectasis or scarring within left lower lung. 2. The rest of findings as above. ACT 112: Negative or not required by law. The above report was generated using voice recognition software. It may contain grammatical, syntax or spelling errors. Electronically signed by: Georgia Caputo DO 03/28/2021 9:52 PM Abdomen/Pelvis CT 03/28/21 19:18 CT SCAN OF THE ABDOMEN AND PELVIS WITHOUT CONTRAST CLINICAL HISTORY: upper pain COMPARISON STUDY: No previous studies for comparison. Correlation is made with CT of the abdomen and pelvis performed on June 15, 2017 TECHNIQUE: CT scan of the abdomen and pelvis was performed from the lung bases to the proximal femurs. Images are reviewed in the axial, sagittal, and coronal planes. IV contrast was not administered for this examination. A dose lowering technique was utilized adhering to the principles of ALARA. CT DOSE: 576.59 mGy.cm FINDINGS: Lower chest: No large pulmonary infiltrates or consolidative lesions are seen. 5.1 x 5.8 cm partially calcified paraesophageal lesion appears similar to prior study in 2017. Liver: The unenhanced liver is normal in size, contour, and attenuation. There is no intrahepatic biliary ductal dilatation. Gallbladder: Is surgically absent. Spleen: Normal in size and attenuation. Pancreas: Unremarkable. Adrenal glands: Unremarkable. Kidneys: The unenhanced kidneys are normal in size without hydronephrosis. There is no contour deforming renal mass lesion. Multiple areas of increase attenuation is seen within bilateral renal pelvises which could represent excreted contrast from recent prior CT of the chest was performed earlier today. Bowel: Bowel loops are nondilated. Small amount of intraluminal contrast is seen within distal aspect of the large bowel. Evaluation of pelvic region is limited due to beam hardening artifact from orthopedic hardware within right hip joint. Peritoneum: There is no intraperitoneal free air or abdominal ascites. Vasculature: Abdominal aorta is nondilated with concentric calcifications within its distal aspect. Adenopathy: None. Pelvic viscera: Partially decompressed urinary bladder with excreted intravenous contrast within its lumen. Uterus is not well seen, might be surgically absent. Limited evaluation of the pelvis due to beam hardening artifact. Skeletal structures: Osteopenia. Laminectomy changes at the L4 level. Transpedicular screws and fixating plates within L3-L5 level. IMPRESSION: 1. No acute intra-abdominal process. 2. Nondilated loops of bowel. Appendix is not well seen. 3. Status post cystectomy. 4. Excreted contrast within collecting system which limits evaluation for nephrolithiasis. 5. Atherosclerosis. 6. Stable partially calcified large paraesophageal lesion which is unchanged since 2017 most likely representing benign etiology. Please correlate above- mentioned findings with prior history. ACT 112: Negative or not required by law. The above report was generated using voice recognition software. It may contain grammatical, syntax or spelling errors. Electronically signed by: Georgia Caputo DO 03/28/2021 8:52 PM Medications Administered Current Inpatient Medications Acetaminophen (Acetaminophen 500 Mg Tab) 750 mg PO Q6H PRN PRN Reason: Pain Stop: 04/28/21 01:17 Amlodipine Besylate (Amlodipine Besylate 5 Mg Tab) 10 mg PO DAILY [facility] Stop: 04/28/21 08:59 Last Admin: 03/29/21 10:40 Dose: 10 mg Documented by: Atorvastatin Calcium (Atorvastatin 40 Mg Tab) 80 mg PO HS [facility] Stop: 04/28/21 20:59 Clopidogrel Bisulfate (Clopidogrel Bisulfate 75 Mg Tab) 75 mg PO DAILY [facility] Stop: 04/28/21 08:59 Last Admin: 03/29/21 10:40 Dose: 75 mg Documented by: Escitalopram Oxalate (Escitalopram Oxalate 20 Mg Tab) 20 mg PO QAM [facility] Stop: 04/28/21 08:59 Last Admin: 03/29/21 10:40 Dose: 20 mg Documented by: Famotidine (Famotidine 40 Mg Tablet) 40 mg PO QAM [facility] Stop: 04/28/21 11:29 Last Admin: 03/29/21 11:48 Dose: 40 mg Documented by: Furosemide (Furosemide 40 Mg Tab) 40 mg PO DAILY [facility] Stop: 04/28/21 08:59 Last Admin: 03/29/21 10:40 Dose: 40 mg Documented by: Magnesium Hydroxide (Magnesium Hydroxide Susp 30 Ml Udc) 30 ml PO Q12H PRN PRN Reason: Constipation Stop: 04/28/21 01:14 Metoprolol Tartrate (Metoprolol Tartrate 25 Mg Tab) 12.5 mg PO DAILY [facility] Stop: 04/28/21 08:59 Last Admin: 03/29/21 10:40 Dose: 12.5 mg Documented by: Morphine Sulfate (Morphine Sulfate 2 Mg/Ml Carp) 2 mg IV Q30M PRN PRN Reason: Chest Pain Stop: 04/12/21 01:14 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 (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 Sl 0.4 Mg/Tab Tab) 0.4 mg SL UD PRN PRN Reason: Chest Pain Stop: 04/28/21 01:14 Ondansetron HCl (Ondansetron Inj 2 Mg/Ml 2 Ml Vial) 4 mg IV Q6H PRN PRN Reason: Nausea Stop: 04/28/21 01:14 Pantoprazole Sodium (Pantoprazole 40 Mg Tab) 40 mg PO QAM [facility] Stop: 04/28/21 08:59 Last Admin: 03/29/21 10:40 Dose: 40 mg Documented by: Polyethylene Glycol (Polyethylene (Miralax) 17 Gm Pack) 17 gm PO DAILY PRN PRN Reason: Constipation Stop: 04/28/21 01:14 ECG Rhythm: sinus rhythm (70s) Resident Activity Tracking Resident Involvement: Resident Care Provided Care Provided: Adult Hospital Medicine
--- NOTE | 2021-03-29 15:21 | Ultrasound Report ---
US venous doppler LE BI CLINICAL HISTORY: elevated d-dimer COMPARISON STUDY: No previous studies for comparison. FINDINGS: Real-time and color flow Doppler imaging were performed. Flow was seen within the bilateral femoral, popliteal and calf veins with no intraluminal thrombus demonstrated. The saphenous vein is patent. IMPRESSION: No evidence of deep venous thrombosis. ACT 112: Negative or not required by law. The above report was generated using voice recognition software. It may contain grammatical, syntax o r spelling errors. Electronically signed by: Georgia Caputo DO 03/29/2021 3:19 PM
--- NOTE | 2021-03-29 15:33 | Electrocardiogram Report ---
Test Reason : Blood Pressure : / mmHG Vent. Rate : 080 BPM Atrial Rate : 080 BPM P-R Int : 182 ms QRS Dur : 090 ms QT Int : 356 ms P-R-T Axes : 053 004 136 degrees QTc Int : 410 ms Normal sinus rhythm RSR' or QR pattern in V1 suggests right ventricular conduction delay Abnormal ECG When compared with ECG of 03-DEC-2020 08:39, Nonspecific T wave abnormality now evident in Inferior leads T wave inversion now evident in Anterolateral leads Confirmed by Tom Grady ([id number]) on 03/29/2021 3:32:47 PM Referred By: REFERRED SELF Confirmed By:Tom Grady
[2021-03-29] MEDS: SUCRALFATE 1 GM/10 ML UDC PO SCH ×2 (16:49→20:10)
[2021-03-29] MEDS ORDERED: POLYETHYLENE (MIRALAX) 17 GM PACK PO ONE (17:36)
--- NOTE | 2021-03-29 19:40 | Billing Data ---
Date of Service March 29, 2021 Coding Level of Care Code 97169 Prolonged Care (int'l)
--- NOTE | 2021-03-29 19:40 | Billing Data ---
Date of Service March 29, 2021 Coding Level of Care Code 04756 Subseq Hosp Care Lvl 3
[2021-03-29] MEDS ORDERED: ATORVASTATIN 40 MG TAB PO SCH (21:00)
[2021-03-29] MEDS ORDERED: METOPROLOL SUCC 25MG EXT REL TAB PO SCH (21:00)
--- NOTE | 2021-03-30 03:36 | Billing Data ---
Date of Service March 30, 2021 Coding Level of Care Code 37339 Initial Inpt Care Lvl 3
[2021-03-30 06:29] LABS: Basophils # (auto) 0.01 K/uL (0-0.2); Basophils % (auto) 0.2 %; Eosinophils # (auto) 0.53 K/uL (0-0.5); Eosinophils % (auto) 8.9 %; Immature Granulocytes # (auto) 0.01 K/uL (0.00-0.02); Immature Granulocytes % (auto) 0.2 %; Lymphocytes # (auto) 1.86 K/uL (1.2-3.4); Lymphocytes % (auto) 31.2 %; Mean Corpuscular Hemoglobin 30.2 pg (25-34); Mean Corpuscular Hgb Conc 33.3 g/dL (32-36); Mean Corpuscular Volume 90.7 fL (80-100); Mean Platelet Volume 10.7 fL (7.4-10.4); Monocytes # (auto) 0.58 K/uL (0.11-0.59); Monocytes % (auto) 9.7 %; Neutrophils # (auto) 2.98 K/uL (1.4-6.5); Neutrophils % (auto) 49.8 %; Platelet Count 245 K/uL (130-400); RDW Coefficient of Variation 13.3 % (11.5-14.5); RDW Standard Deviation 44.1 fL (36.4-46.3); Red Blood Count 3.64 M/uL (4.2-5.4); White Blood Count 5.97 K/uL (4.8-10.8)
[2021-03-30 06:59] LABS: Albumin Level 3.4 gm/dl (3.4-5.0); Calcium 9.1 mg/dl (8.5-10.1); Creatinine Clr Calc Pharmacy 45.7 ml/min; Est GFR (African American) 55.1 ml/min; Est GFR (Non-African American) 47.5 ml/min; Potassium 3.8 mmol/L (3.5-5.1)
[2021-03-30 07:02] LABS: Bilirubin,Total 0.7 mg/dl (0.2-1); Globulin 3.6 gm/dl (2.5-4.0)
[2021-03-30] MEDS: FAMOTIDINE 40 MG TABLET PO SCH (07:28)
[2021-03-30] MEDS: PANTOprazole 40 MG TAB PO SCH (07:28)
[2021-03-30] MEDS: CLOPIDOGREL BISULFATE 75 MG TAB PO SCH (07:28)
[2021-03-30] MEDS: FUROSEMIDE 40 MG TAB PO SCH (07:28)
[2021-03-30] MEDS: amLODIPine BESYLATE 5 MG TAB PO SCH (07:28)
[2021-03-30] MEDS: SUCRALFATE 1 GM/10 ML UDC PO SCH ×2 (07:28→13:36)
[2021-03-30] MEDS: ESCITALOPRAM OXALATE 20 MG TAB PO SCH (07:28)
--- NOTE | 2021-03-30 08:16 | Hospitalist Progress Note ---
Date of Service March 30, 2021 Assessment & Plan Admission and Anticipated Discharge Date Admission Date: March 28, 2021 Results & Data Results & Data ([facility]) Vital Signs (Past 12 Hours) Vital Signs Temp Pulse Resp BP Pulse Ox 03/30/21 08:03 37.0 C 67 16 154/88 H 96 03/29/21 23:28 37 C 66 16 138/72 96 Resident Activity Tracking Resident Involvement: Resident Care Provided Care Provided: Adult Hospital Medicine
--- NOTE | 2021-03-30 13:44 | Med Student Discharge Summary ---
Date of Service March 30, 2021 Admission HPI Per Admitting Provider Rocio Gonzalez is a 80-year-old female with past medical history significant for recent three-vessel CABG done in [place] in the end of February; who presented for concerns and evaluation of chest pain and abdominal discomfort. She has been struggling with GERD symptoms for many years, and it was not until recently that these reflux/abdominal pain symptoms were discussed with bushel worker that further evaluation was done and ultimately led to cardiac catheterization and subsequent CABG last month in [place]. Since completion of that CABG, patient has noted that she continues to have this upper abdominal discomfort, and feels like this has worsened over the last 2 weeks. Has noticed that she has been getting more mucousy sputum/reflux type discomfort over this time, and noticed that the other day she had multiple episodes of diarrhea. Additionally she notes that since the surgery she has been having difficulty catching her breath, and feelings of needing to sit upright in order to breathe easier. Earlier in the day she had a repeat CT chest for further evaluation of pulmonary nodules noticed last month. Does have discomfort with eating but this is been longstanding, has previously had endoscopy for this and then was deemed to be likely reflux related. Additionally with recent intubations from cardiac procedures she has noticed some discomfort with this, even with taking her pills. Denies exertional symptoms, or worsening. Admission Exam (Per Admitting) Constitutional WD/WN, vitals as above Eyes PERRL, conjunctivae normal, anicteric sclerae Respiratory normal respiratory effort, lungs clear to auscultation Auscultation: no crackles, no rales, no rhonchi and no wheezes Cardiovascular Rate/Rhythm: regular rate and regular rhythm Heart Sounds: no gallop, no murmur and no cardiac rub Vessels: normal peripheral pulses; no JVD Extremities: no edema Gastrointestinal (Abdomen) Inspection/Auscultation: normal bowel sounds; abdomen not distended Percussion/Palpation: + abdomen tender (epigastric, LUQ) and abdomen soft; no guarding Musculoskeletal no cyanosis or clubbing, extremities motor strength 5/5 Skin no rashes, warm and dry Neurologic PERRL, EOMI, accommodation nl, no face palsy, no dysarthria CN's II-XI intact bilaterally and moves all extremities Psychiatric Orientation: alert and oriented x 3 Discharge Data Consultations 03/28/21 22:32 ED Decision to Admit Stat 03/29/21 01:15 Consult Cardiology Routine Hospital Course (1) Abdominal pain, epigastric: Rocio Gonzalez is a 80-year-old female with past medical history significant for recent three-vessel CABG done in [place] in the end of February; who presented for concerns and evaluation of abdominal discomfort. Epigastric abdominal pain: -Uncertain etiology of patient's epigastric abdominal pain -Given recent CABG initial concern is this could be presentation of atypical chest pain given current setting increase in symptoms following surgery -Cardiology consulted appreciated, think abdominal pain is likely not cardiac in origin -Supportive of noncardiac etiology: Echo with Contrast - no remarkable findings; negative Troponin x2, postprandial -CT abdomen pelvis demonstrating no acute intra-abdominal process -Recent EGD in 01/2021 relatively unremarkable (few polyps) -Lipase slightly elevated at 449 -ESR, CRP within normal limits -Longstanding GERD Hx not well managed with pantoprazole -Began famotidine 40 mg PO qAM and Carafate 1 g QID along with home pantoprazole to see if it provides epigastric relief -- patient feeling "50%" better the next day and has minimal epigastric pain -Continue the famotidine, pantoprazole, and Carafate and wean as appropriate Diarrhea: -Patient complains of diarrhea two days before admission and on her first day here -Also speaks about being constipation for days leading up to admission -Given Miralax thinking she has constipation with overflow diarrhea to help clear her bowels -Patient tolerating Miralax well, actively going to the bathroom with watery stools, nothing seems to be solidified -Continue Miralax at home for several days, taking 17g three times as a day to assist in clearing stool Pulmonary Nodule: -CT chest earlier today demonstrating calcified paraesophageal lesion, multiple pulmonary nodules (largest was 10x5mm), no evidence of pericardial effusion -Schedule follow-up with PCP to determine best course of action moving forward -- CT scan in 3 months to monitor (per Fleischner criteria) Hypertension: -Continue amlodipine, metoprolol, furosemide Hyperlipidemia: -Continue atorvastatin 80 mg daily (2) GERD (gastroesophageal reflux disease): (3) Status post coronary artery bypass graft: (4) Hypertension: (5) Hyperlipidemia: Discharge Plan Discharge Items Patient Disposition: Home - Self-Care Reason For Visit: CHEST PAINS Discharge Diagnosis: GERD Condition on Discharge: Good Activity: Resume your previous activity Non-emergency contact: Primary Care Provider Call non-emergency contact if: your symptoms worsen Follow-up/Referrals: Jadon Aguiar MD [Primary Care Provider] - (Please call to schedule with your PCP) Diet: Regular Addtl Attending Provider Instructions: A discharge summary will be sent to your primary care physician to ensure continuity of care. Please bring this discharge summary with you to your next office appointment so that your provider can review it at that time. Abdominal pain -it appears that your abdominal pain was a combination of both upper GI distress (indigestion, probably a little bit of gastritis) and constipation with overflow diarrhea (see below) indigestion/gastritis -the upper abdominal pain, bloating, and sometimes nausea that you were feeling appears to have been indigestion and gastritis. gastritis is basically irritation and inflammation of the lining of the stomach - if you think of an ulcer as a gouge in the stomach lining, gastritis is like a brush burn -because physical and emotional stress are common causes of gastritis, it's not at all surprising that you would have that develop at this time. fortunately, the stomach heals itself fairly quickly, so with treatment, time, and removal from the physical stressors, this should get better over a few weeks to a month -we'll treat with three medications for now - protonix (pantoprazole), pepcid (famotidine), and carafate (sucralfate) ----protonix is a strong suppressor of acid secretion, making your stomach a lot less acidic of an environment, and therefore allowing things to heal over faster. ----pepcid is a acid suppression medicine that works in a different way than the protonix. while not as strong, often stacking both on top of eachother for a short time can help reduce symptoms more quickly than just doing one alone ----carafate basically just coats the lining of the stomach and esopagus making it less likely to get physically irritated by food or acid -we'll have you on all three for the next week. as you follow up with Dr Aguiar, as long as you're feeling better, then next week most likely he'll direct you to stop the pepcid (famotidine). a week or so after that, if you're still doing well then it will likely be time to stop the carafate, and then after that - over a few weeks to maybe a few months - then he'll have you reduce and then eventually stop the protonix -if things don't get better // if things worsen with the upper GI symptoms, etc, then Dr Aguiar might need to refer you for another upper scope (EGD) - this is really not likely to happen//not likely to be needed. and for your peace of mind, if it's needed, he can refer to Ankit Cortez or Charito BONDS so you won't need to worry about going back to the [facility] doc constipation with overflow incontinence -while you came in with diarrhea, your CT scan did show several areas of solid stool. given this, and given that nothing about your situation fit with a stomach virus/intestinal infection/etc - everything points to your diarrhea having been what is called "overflow incontinence" -what happens with this is that you start by getting somewhat constipated, then the hard stool isn't really moving, but the diarrhea is the liquid stool that you see getting aroung the "logjam" -- because our intestines most rudimentary nervous system is "stretch-recoil" typically once someone has a good deal of stool backed up, the "stretch" is always getting triggered, meaning that the "recoil" can really happen whenever (most commonly after eating/drinking/etc though) --the main way we'll manage this is actually with miralax (polyethylene glycol) to clear the stool out. the 51 grams (3 doses) didn't really seem to move much stool (since all we saw was water) -- so we'll just need to do more miralax for a little while to continue to work on getting things moving. while 51 grams all at once really caused a good bit of diarrhea, 17 grams spread out throughout the day three times a day typically acts more as an "aggressive stool softener" than a laxative -what we'd recommend for the next several days is taking 17 grams of miralax three times a day spread out. as you start to feel less bloated (or if you start to see a lot of solid stool move through) then you'll know that things paulino ve been cleared out - and from there, since constipation usually is more a state of slow GI movement rather than just a one-time episode of stool getting backed up, we'd recommend that you stick wtih a dose or two a day to keep things moving -----if you just keep having watery stools over the next few days, it's then reasonable to get an Xray to look at how much stool is left behind (ie if it's never clear that you really moved out the solid stuff and we need a little extra help telling if things are cleared out). most likely though, you'll see brown- watery, or chunky, or solid stools move, and then a return of watery stools - and that would make it clear that you're good to reduce to just a dose once or twice a day lung nodules -while at the time of this writing Dr Aguiar and I were still playing "phone tag" - based on what I'm seeing on the current CT scan things are far more likely to be old leftover inflammation than a cancer. to be safe (because of c ourse a cancer would be soemthing we would not want to miss) this warrants follow up - but by the most reliable criteria we have (called the Fleischner criteria) - I'd recommend a repeat CT in 3 months to follow the spots for stability. from there, if they haven't changed, usually we still keep an eye on them periodically for a few years and then are able to say with a good degree of certainty that things are just inflammatory. if they were to get bigger or start to have more scary features, then we'd get you set up with a lung doctor to have it biopsied. -to reiterate our conversation, however, when we see spots, there are characteristics that look more worrisome -- that your spots don't show. typically spots that are really worrisome for cancer are more "spindly" as they reach out into surrounding tissue, often have surrounding lymph nodes, and when there are multiple spots they are in the same region - suggesting a primary tumor and then secondary "satellite" tumors. yours don't have those features, and the two we can see are in opposite lungs. so while stranger things have happened, and we'll definitely keep an eye on things to be safe. Follow-up appointments: We'll want to have you following up with Dr Aguiar next week and then pretty regularly for the next month or two until things get back to normal. As we discussed, he'll take over as the "quarterback" for all of this. Since sometimes scheduled can be tricky I'd recommend having Dr Tafoya as your "pinch hitter" for Dr Aguiar if you need to be seen but you're not able to get in with him as quickly as you need. I do the same thing with myself and my family - where technically we see one of the [facility] attending physicians, but I'll usually have one resident as a "pinch hitter" for if we can't get in with the attending. This creates an easier ability to get seen, but without the totally broken continuity of seeing someone new every time. We have requested a follow-up appointment with your primary care physician within one week of discharge. Please call their office if you do not hear from them. Keep all your follow-up appointments as already scheduled. If you cannot make an appointment, notify your provider. Medications: Your medication list has been reviewed and reconciled upon discharge to ensure accuracy and continuity of care. An updated list of all your medications is included with your hospital discharge paperwork. Please review this list closely, and make note of any changes. * Take pantoprazole 40 mg twice a day until Dr Aguiar directs you otherwise. * We sent a new medication called Famotidine to your pharmacy. Take Famotidine 20mg twice a day * We sent a new medication called Carafate to your pharmacy. Take Carafate 1 gram three times daily for one month. Take your medications as instructed; do not skip a dose of your medicines. Make sure all of your doctors know every medicine you are taking (including over-the- counter medicines, vitamins, and supplements). Call your primary care provider before taking any new medicines (including [id number] medicines, vitamins, and supplements), because some of these may interact with your current medications, or may make your symptoms worse. Tell your primary care provider if you cannot afford your medications. CONTACT YOUR PRIMARY CARE PROVIDER if you experience any of the following: Worsening symptoms Difficulty following your treatment plan, or difficulty taking medications CALL 911 OR GO TO THE EMERGENCY DEPARTMENT if you experience any of the following: Sudden, severe abdominal pain or nausea/vomiting Severe chest pain, or chest pain that radiates (moves) to your jaw or arm Sudden, severe shortness of breath or difficulty breathing Thank you for allowing us to participate in your care. Pending Studies at Discharge: No Stand-Alone Forms: [facility], Smoking Cessation Medications and DC Order Prescriptions: New polyethylene glycol 3350 [Miralax] 17 gram Powder In Packet 17 g PO TID PRN (Reason: constipation) Qty: 1 RF: 0 sucralfate 100 mg/mL Suspension 1 g PO QID Qty: 1200 RF: 0 pantoprazole 40 mg Tablet,Delayed Release (Dr/Ec) 40 mg PO BID Qty: 60 RF: 0 famotidine 20 mg tablet 20 mg PO BID 7 Days Qty: 14 RF: 0 Continued calcium carbonate [Calcium 500] 500 mg calcium (1,250 mg) Tablet 1 tab PO DAILY RF: 0 escitalopram oxalate 20 mg tablet 20 mg PO QAM RF: 0 psyllium 500 mg Capsule 500 mg PO DAILY Qty: 0 RF: 0 multivitamin Tablet 1 tab PO DAILY RF: 0 furosemide 40 mg tablet 40 mg PO DAILY RF: 0 atorvastatin 80 mg tablet 80 mg PO HS RF: 0 clopidogrel 75 mg tablet 75 mg PO DAILY RF: 0 acetaminophen [Tylenol Extra Strength] 500 mg Tablet 750 mg PO Q6H PRN (Reason: Pain) RF: 0 amlodipine 10 mg tablet 10 mg PO DAILY RF: 0 metoprolol tartrate 25 mg tablet 12.5 mg PO DAILY RF: 0 Discontinued pantoprazole 40 mg Tablet,Delayed Release (Dr/Ec) 40 mg PO QAM RF: 0 Discharge Orders: Discharge Order (Routine); Ordered 03/30/21 Ordered By: Taj Franks Admission Data Admit Date/Time: 03/28/21 23:55 Attending Provider: Taj Franks Admit Provider: Chai Friedman Primary Care Provider: Jadon Aguiar Other Providers: [employer] ; Narinder Franklin ; Deshaun Seth Other Interventions: Discharge Summary Assessment (RN) Last Done: 03/30/21 17:00 Supervising Attestation I personally examined the patient and verified all sparks points of history and exam, discussed case, and agree with decision making with Adama Chavez [id number] See attending attestation on discharge summary done by Dr. Tafoya, as well as discharge instructions for further information. Greater than 30 minutes.
--- NOTE | 2021-03-30 18:25 | Discharge Summary ---
Date of Service March 30, 2021 Admission HPI Per Admitting Provider Rocio Gnozalez is a 80-year-old female with past medical history significant for recent three-vessel CABG done in [place] in the end of February; who presented for concerns and evaluation of chest pain and abdominal discomfort. She has been struggling with GERD symptoms for many years, and it was not until recently that these reflux/abdominal pain symptoms were discussed with cyber engineer that further evaluation was done and ultimately led to cardiac catheterization and subsequent CABG last month in [place]. Since completion of that CABG, patient has noted that she continues to have this upper abdominal discomfort, and feels like this has worsened over the last 2 weeks. Has noticed that she has been getting more mucousy sputum/reflux type discomfort over this time, and noticed that the other day she had multiple episodes of diarrhea. Additionally she notes that since the surgery she has been having difficulty catching her breath, and feelings of needing to sit upright in order to breathe easier. Earlier in the day she had a repeat CT chest for further evaluation of pulmonary nodules noticed last month. Does have discomfort with eating but this is been longstanding, has previously had endoscopy for this and then was deemed to be likely reflux related. Additionally with recent intubations from cardiac procedures she has noticed some discomfort with this, even with taking her pills. Denies exertional symptoms, or worsening. Admission Exam Per Admitting Provider Constitutional: WD/WN, vitals as above Eyes: PERRL, conjunctivae normal, anicteric sclerae Respiratory: normal respiratory effort, lungs clear to auscultation Auscultation: no crackles, no rales, no rhonchi and no wheezes Cardiovascular: Rate/Rhythm: regular rate and regular rhythm Heart Sounds: no gallop, no murmur and no cardiac rub Vessels: normal peripheral pulses; no JVD Extremities: no edema Gastrointestinal (Abdomen): Inspection/Auscultation: normal bowel sounds; abdomen not distended Percussion/Palpation: + abdomen tender (epigastric) and abdomen soft; no guarding Musculoskeletal: no cyanosis or clubbing, extremities motor strength 5/5 Skin: no rashes, warm and dry Neurologic: PERRL, EOMI, accommodation nl, no face palsy, no dysarthria CN's II-XI intact bilaterally and moves all extremities Psychiatric: Orientation: alert and oriented x 3 Principal Diagnosis GERD Discharge Data Allergies Allergy/AdvReac Type Severity Reaction Status Date / Time sugammadex Allergy Severe Bronchospas Unverified 03/28/21 20:27 ms prednisone Allergy Intermediate ELEVATED BP Verified 03/28/21 20:27 hydromorphone Allergy Mild RASH Verified 03/28/21 20:27 codeine AdvReac Intermediate NAUSEA AND Verified 03/28/21 20:27 DIZZY oxycodone AdvReac Intermediate DIZZINESS,N Verified 03/28/21 20:27 AUSEA Consultations 03/28/21 22:32 ED Decision to Admit Stat 03/29/21 01:15 Consult Cardiology Routine Ordered Studies 03/28/21 19:18 CT abd pelvis wo con Stat 03/29/21 11:21 US venous doppler LE BI Routine Hospital Course (1) Abdominal pain, epigastric: Rocio Gonzalez is a 80-year-old female with past medical history significant for recent three-vessel CABG done in [place] in the end of February; who presented for concerns and evaluation of abdominal discomfort. Epigastric abdominal pain: Uncertain etiology, patient was concerned of cardiac origin due to recent cardiac history and CABG. Cardiology was consulted, believed abd pain is likely not cardiac in origin. Echo with Contrast - no remarkable findings; negative Troponin x2. D-dimer is elevated at 3150, ordered venous doppler LE, negative. CT abdomen pelvis demonstrating no acute intra-abdominal process. Recent EGD in 01/2021 relatively unremarkable (few polyps). Started on famotidine, home dose pantoprazole, sucralfate, miralax. Patient noted temporary improvement of symptoms. Will continue these medications in outpatient, to be titrated down. Please follow with PCP. GERD: Continue home pantoprazole. Added famotidine, sucralfate. Please titrate down with PCP. Pulmonary Nodule: CT chest demonstrated calcified paraesophageal lesion, multiple pulmonary nodules (largest was 10x5mm), no evidence of pericardial effusion, believed unlikely to be cancer. Please follow with CT scan in 3 months to monitor, follow up with PCP. Hypertension: Continue home medication Hyperlipidemia: Continue home medication (2) GERD (gastroesophageal reflux disease): (3) Status post coronary artery bypass graft: (4) Hypertension: (5) Hyperlipidemia: Total Time Total Time Spent Total Time Spent (In Minutes): >30 Discharge Plan Discharge Items Patient Disposition: Home - Self-Care Reason For Visit: CHEST PAINS Discharge Diagnosis: GERD Condition on Discharge: Good Activity: Resume your previous activity Non-emergency contact: Primary Care Provider Call non-emergency contact if: your symptoms worsen Follow-up/Referrals: Jadon Aguiar MD [Primary Care Provider] - (Please call to schedule with your PCP) Diet: Regular Addtl Attending Provider Instructions: A discharge summary will be sent to your primary care physician to ensure continuity of care. Please bring this discharge summary with you to your next office appointment so that your provider can review it at that time. Abdominal pain -it appears that your abdominal pain was a combination of both upper GI distress (indigestion, probably a little bit of gastritis) and constipation with overflow diarrhea (see below) indigestion/gastritis -the upper abdominal pain, bloating, and sometimes nausea that you were feeling appears to have been indigestion and gastritis. gastritis is basically irritation and inflammation of the lining of the stomach - if you think of an ulcer as a gouge in the stomach lining, gastritis is like a brush burn -because physical and emotional stress are common causes of gastritis, it's not at all surprising that you would have that develop at this time. fortunately, the stomach heals itself fairly quickly, so with treatment, time, and removal from the physical stressors, this should get better over a few weeks to a month -we'll treat with three medications for now - protonix (pantoprazole), pepcid (famotidine), and carafate (sucralfate) ----protonix is a strong suppressor of acid secretion, making your stomach a lot less acidic of an environment, and therefore allowing things to heal over faster. ----pepcid is a acid suppression medicine that works in a different way than the protonix. while not as strong, often stacking both on top of eachother for a short time can help reduce symptoms more quickly than just doing one alone ----carafate basically just coats the lining of the stomach and esopagus making it less likely to get physically irritated by food or acid -we'll have you on all three for the next week. as you follow up with Dr Aguiar, as long as you're feeling better, then next week most likely he'll direct you to stop the pepcid (famotidine). a week or so after that, if you're still doing well then it will likely be time to stop the carafate, and then after that - over a few weeks to maybe a few months - then he'll have you reduce and then eventually stop the protonix -if things don't get better // if things worsen with the upper GI symptoms, etc, then Dr Aguiar might need to refer you for another upper scope (EGD) - this is really not likely to happen//not likely to be needed. and for your peace of mind, if it's needed, he can refer to Ankit Cortez or Charito BONDS so you won't need to worry about going back to the [facility] doc constipation with overflow incontinence -while you came in with diarrhea, your CT scan did show several areas of solid stool. given this, and given that nothing about your situation fit with a stomach virus/intestinal infection/etc - everything points to your diarrhea having been what is called "overflow incontinence" -what happens with this is that you start by getting somewhat constipated, then the hard stool isn't really moving, but the diarrhea is the liquid stool that you see getting aroung the "logjam" -- because our intestines most rudimentary nervous system is "stretch-recoil" typically once someone has a good deal of stool backed up, the "stretch" is always getting triggered, meaning that the "recoil" can really happen whenever (most commonly after eating/drinking/etc though) --the main way we'll manage this is actually with miralax (polyethylene glycol) to clear the stool out. the 51 grams (3 doses) didn't really seem to move much stool (since all we saw was water) -- so we'll just need to do more miralax for a little while to continue to work on getting things moving. while 51 grams all at once really caused a good bit of diarrhea, 17 grams spread out throughout the day three times a day typically acts more as an "aggressive stool softener" than a laxative -what we'd recommend for the next several days is taking 17 grams of miralax three times a day spread out. as you start to feel less bloated (or if you start to see a lot of solid stool move through) then you'll know that things have been cleared out - and from there, since constipation usually is more a state of slow GI movement rather than just a one-time episode of stool getting backed up, we'd recommend that you stick wtih a dose or two a day to keep things moving -----if you just keep having watery stools over the next few days, it's then reasonable to get an Xray to look at how much stool is left behind (ie if it's never clear that you really moved out the solid stuff and we need a little extra help telling if things are cleared out). most likely though, you'll see brown- watery, or chunky, or solid stools move, and then a return of watery stools - and that would make it clear that you're good to reduce to just a dose once or twice a day lung nodules -while at the time of this writing Dr Aguiar and I were still playing "phone tag" - based on what I'm seeing on the current CT scan things are far more likely to be old leftover inflammation than a cancer. to be safe (because of course a cancer would be soemthing we would not want to miss) this warrants follow up - but by the most reliable criteria we have (called the Fleischner criteria) - I'd recommend a repeat CT in 3 months to follow the spots for stability. from there, if they haven't changed, usually we still keep an eye on them periodically for a few years and then are able to say with a good degree of certainty that things are just inflammatory. if they were to get bigger or start to have more scary features, then we'd get you set up with a lung doctor to have it biopsied. -to reiterate our conversation, however, when we see spots, there are characteristics that look more worrisome -- that your spots don't show. typi anil spots that are really worrisome for cancer are more "spindly" as they reach out into surrounding tissue, often have surrounding lymph nodes, and when there are multiple spots they are in the same region - suggesting a primary tumor and then secondary "satellite" tumors. yours don't have those features, and the two we can see are in opposite lungs. so while stranger things have happened, and we'll definitely keep an eye on things to be safe. Follow-up appointments: We'll want to have you following up with Dr Aguiar next week and then pretty regularly for the next month or two until things get back to normal. As we discussed, he'll take over as the "quarterback" for all of this. Since sometimes scheduled can be tricky I'd recommend having Dr Tafoya as your "pinch hitter" for Dr Aguiar if you need to be seen but you're not able to get in with him as quickly as you need. I do the same thing with myself and my family - where technically we see one of the [facility] attending physicians, but I'll usually have one resident as a "pinch hitter" for if we can't get in with the attending. This creates an easier ability to get seen, but without the totally broken continuity of seeing someone new every time. We have requested a follow-up appointment with your primary care physician within one week of discharge. Please call their office if you do not hear from them. Keep all your follow-up appointments as already scheduled. If you cannot make an appointment, notify your provider. Medications: Your medication list has been reviewed and reconciled upon discharge to ensure accuracy and continuity of care. An updated list of all your medications is included with your hospital discharge paperwork. Please review this list cl osely, and make note of any changes. * Take pantoprazole 40 mg twice a day until Dr Aguiar directs you otherwise. * We sent a new medication called Famotidine to your pharmacy. Take Famotidine 20mg twice a day * We sent a new medication called Carafate to your pharmacy. Take Carafate 1 gram three times daily for one month. Take your medications as instructed; do not skip a dose of your medicines. Make sure all of your doctors know every medicine you are taking (including lpez-ktn-rbvxyoo medicines, vitamins, and supplements). Call your primary care provider before taking any new medicines (including oqnh-fpn-vaqabdj medicines, vitamins, and supplements), because some of these may interact with your current medications, or may make your symptoms worse. Tell your primary care provider if you cannot afford your medications. CONTACT YOUR PRIMARY CARE PROVIDER if you experience any of the following: Worsening symptoms Difficulty following your treatment plan, or difficulty taking medications CALL 911 OR GO TO THE EMERGENCY DEPARTMENT if you experience any of the following: Sudden, severe abdominal pain or nausea/vomiting Severe chest pain, or chest pain that radiates (moves) to your jaw or arm Sudden, severe shortness of breath or difficulty breathing Thank you for allowing us to participate in your care. Pending Studies at Discharge: No Stand-Alone Forms: [facility], Smoking Cessation Medications and DC Order Prescriptions: New polyethylene glycol 3350 [Miralax] 17 gram Powder In Packet 17 g PO TID PRN (Reason: constipation) Qty: 1 RF: 0 sucralfate 100 mg/mL Suspension 1 g PO QID Qty: 1200 RF: 0 pantoprazole 40 mg Tablet,Delayed Release (Dr/Ec) 40 mg PO BID Qty: 60 RF: 0 famotidine 20 mg tablet 20 mg PO BID 7 Days Qty: 14 RF: 0 Continued calcium carbonate [Calcium 500] 500 mg calcium (1,250 mg) Tablet 1 tab PO DAILY RF: 0 escitalopram oxalate 20 mg tablet 20 mg PO QAM RF: 0 psyllium 500 mg Capsule 500 mg PO DAILY Qty: 0 RF: 0 multivitamin Tablet 1 tab PO DAILY RF: 0 furosemide 40 mg tablet 40 mg PO DAILY RF: 0 atorvastatin 80 mg tablet 80 mg PO HS RF: 0 clopidogrel 75 mg tablet 75 mg PO DAILY RF: 0 acetaminophen [Tylenol Extra Strength] 500 mg Tablet 750 mg PO Q6H PRN (Reason: Pain) RF: 0 amlodipine 10 mg tablet 10 mg PO DAILY RF: 0 metoprolol tartrate 25 mg tablet 12.5 mg PO DAILY RF: 0 Discontinued pantoprazole 40 mg Tablet,Delayed Release (Dr/Ec) 40 mg PO QAM RF: 0 Discharge Orders: Discharge Order (Routine); Ordered 03/30/21 Ordered By: Taj Franks Admission Data Admit Date/Time: 03/28/21 23:55 Attending Provider: Taj Franks Admit Provider: Chai Friedman Primary Care Provider: Jadon Aguiar Other Providers: [facility] ; Narinder Franklin ; Deshaun Seth Other Interventions: Discharge Summary Assessment (RN) Last Done: 03/30/21 17:00 Supervising Physician Co-Signing Physician Notes I personally examined the patient and verified all sparks points of history and exam, discussed case, and agree with decision making with Dr Tafoya. Upper GI symptoms feeling much better. Only really had watery diarrhea as far as bowel movements, lower GI symptoms feel about the same may be slightly better. She felt a little bit rough after breakfast felt good after lunch. Very much wants to go home. Extensive discussion with patient and explaining further course of care, PCP and myself have been constantly missing each other getting in touch over the phone. Vitals noted, in general she is awake and alert pleasant no distress. HEENT normocephalic atraumatic mucous membranes moist. Breathing unlabored no accessory muscle use good effort. Skin shows no rashes no pallor or icterus neuro without focal deficits. No myofascial trigger points clearly noted on abdominal exam, abdomen is soft may be mildly distended mild epigastric tenderness no guarding rebound or rigidity. Abdominal painGERD/indigestion, as well as constipation with overflow diarrhea -Protonix, Pepcid, Carafate for now, over the next few weeks start to scale back on each of these as she improves. Ongoing MiraLAX as a bowel regimen, scale back as possible. Question chronic right-sided CHFis on Lasix as part of her home medications, does not seem to have any decompensated failure or LV failure. Might just be on it as an antihypertensive. Lung nodulewe will get in touch with PCP to ensure on the same page, but from the best I can tell it seems that serial imaging by Fleischner criteria would be most indicated. otherwise as above
--- NOTE | 2021-03-30 19:44 | Billing Data ---
Date of Service March 30, 2021 Coding Level of Care Code D/C DAY MANAGEMENT >30 MINS
[2021-03-30] MEDS ORDERED: PANTOprazole 40 MG TAB PO SCH (21:00)
--- NOTE | 2021-04-11 11:21 | Coding Query ---
CONGESTIVE HEART FAILURE To Promote full compliance with coding requirements relating to patient care, physician participation is requested in all cases of publications production supervisor uncertainty. Please assist us with the following questions. A diagnosis of Congestive Heart Failure is documented in the patient's medical record. To accurately code this diagnosis and to compare patient severity, we ask that you specify the type of heart failure by placing an X within the parenthesis (x). Patient s/p cardiac bypass 1 month ago. Chronic right-sided heart failure Thanks for your help! RASHAUN Sethi CCS SYSTOLIC HEART FAILURE ( ) Acute ( ) Chronic ( ) Acute on Chronic ( ) Rheumatic ( ) Unknown DIASTOLIC HEART FAILURE ( ) Acute ( ) Chronic ( ) Acute on Chronic ( ) Rheumatic ( ) Unknown COMBINED SYSTOLIC AND DIASTOLIC HEART FAILURE ( ) Acute ( ) Chronic ( ) Acute on Chronic ( ) Rheumatic ( ) Unknown Was the CHF Present On Admission? Please check the appropriate box: ( ) Present on Admission ( ) Not Present On Admission ( ) Clinically undetermined i apologize - i don't remember her being a CHF patient -- and on chart review can't see where it was documented even. i'm sure i'm just missing it, but it really wasnt a part of her clinical picture. STEVEN
--- NOTE | 2021-04-11 11:23 | Coding Query ---
CONGESTIVE HEART FAILURE To Promote full compliance with coding requirements relating to patient care, physician participation is requested in all cases of orthopedic coder uncertainty. Please assist us with the following questions. A diagnosis of Congestive Heart Failure is documented in the patient's medical record. To accurately code this diagnosis and to compare patient severity, we ask that you specify the type of heart failure by placing an X within the parenthesis (x). Patient admitted with GERD, sp cardiac bypass 1 month ago. Chronic right-sided heart failure. Thanks for your help! RASHAUN Sethi CCS SYSTOLIC HEART FAILURE ( ) Acute ( ) Chronic ( ) Acute on Chronic ( ) Rheumatic ( ) Unknown DIASTOLIC HEART FAILURE ( ) Acute ( ) Chronic ( ) Acute on Chronic ( ) Rheumatic ( ) Unknown COMBINED SYSTOLIC AND DIASTOLIC HEART FAILURE ( ) Acute ( ) Chronic ( ) Acute on Chronic ( ) Rheumatic ( ) Unknown Was the CHF Present On Admission? Please check the appropriate box: ( ) Present on Admission ( ) Not Present On Admission ( ) Clinically undetermined Thank you Cong HARRIS
== END 2021-03-30 17:45 | disposition home health service (06) | DRG 392 ==
LOC: ED 18:58 → SUATTDRO 23:55 → 2S 23:55 → 3N 03-29 19:46

== ENCOUNTER 2024-03-17 07:40 | Observation (INO) ==
--- NOTE | 2024-02-07 11:11 | PAT Medication Instructions ---
Medication Instructions Date of Service February 07, 2024 Home Medications acetaminophen 500 mg tablet (Tylenol Extra Strength) 1,000 mg PO Q6H PRN Pain multivitamin 1 tab PO QAM aspirin 81 mg tablet,delayed release (Adult Aspirin Regimen) 81 mg PO QAM cilostazol 100 mg tablet 100 mg PO BID escitalopram oxalate 20 mg tablet 30 mg PO QAM famotidine 20 mg tablet 20 mg PO QPM amlodipine 5 mg tablet 5 mg PO QAM calcium carbonate 600 mg-vitamin D3 10 mcg (400 unit) tablet (Calcium 600 + D(3)) 1 tab PO DAILY bupropion HCl 300 mg 24 hr tablet, extended release 300 mg PO BID calcium 650 mg-vitamin D3 12.5 mcg-vitamin K 40 mcg chewable tablet (Viactiv) 1 tab PO QAM coQ10 (ubiquinol) 100 mg capsule 100 mg PO QAM metoprolol succinate 25 mg tablet,extended release 24 hr 12.5 mg PO HS pantoprazole 20 mg tablet,delayed release 20 mg PO BID rosuvastatin 5 mg tablet 5 mg PO QPM MEDICATION INSTRUCTIONS: ASK your prescriber and surgeon aspirin 81 mg tablet,delayed release (Adult Aspirin Regimen) 81 mg PO QAM cilostazol 100 mg tablet 100 mg PO BID STOP taking 2 weeks before surgery coQ10 (ubiquinol) 100 mg capsule 100 mg PO QAM DO NOT take the morning of surgery multivitamin 1 tab PO QAM calcium carbonate 600 mg-vitamin D3 10 mcg (400 unit) tablet (Calcium 600 + D(3)) 1 tab PO DAILY calcium 650 mg-vitamin D3 12.5 mcg-vitamin K 40 mcg chewable tablet (Viactiv) 1 tab PO QAM Take morning of surgery With a small sip of water, OTHERWISE NOTHING TO EAT OR DRINK AFTER MIDNIGHT: pantoprazole 20 mg tablet,delayed release 20 mg PO BID escitalopram oxalate 20 mg tablet 30 mg PO QAM amlodipine 5 mg tablet 5 mg PO QAM acetaminophen 500 mg tablet (Tylenol Extra Strength) 1,000 mg PO Q6H PRN Pain bupropion HCl 300 mg 24 hr tablet, extended release 300 mg PO BID Take evening before surgery metoprolol succinate 25 mg tablet,extended release 24 hr 12.5 mg PO HS rosuvastatin 5 mg tablet 5 mg PO QPM pantoprazole 20 mg tablet,delayed release 20 mg PO BID famotidine 20 mg tablet 20 mg PO QPM acetaminophen 500 mg tablet (Tylenol Extra Strength) 1,000 mg PO Q6H PRN Pain bupropion HCl 300 mg 24 hr tablet, extended release 300 mg PO BID Other Notes If you have any questions please call us at [phone] or [phone] or [phone] or [phone]
--- NOTE | 2024-02-20 12:23 | Anesthesiology Consultation ---
Date of Service February 20, 2024 Assessment & Plan (1) Encounter for pre-operative examination: Chart Review Chart Review: Acceptable Risk for Surgery (pending upcoming routine neuro appt 02/27/24 and most recent vascular note (Dr Hung)) and Patient seen in Pre Admission Testing - Awaiting [facility] Neuro appt 02/27/24 - Please obtain most recent Dr. Hung note - Patient is NOT an ideal OPJ candidate (currently 23 hour obs) Per PAT appt on 02/20/24, no recent illness/disease exposures, illness related symptoms, or recent illness/disease positive tests. Will leave to surgeon's discretion if preop Covid testing needed Patient seen by cardiology 12/14/2023 = Patient seen for 6-month follow-up. Patient having significant posterior headache since the fall 2022. Scheduled to see headache specialist in the future. Does have symptoms of claudication slightly worse on the left compared to the rightseen by vascular surgery. From a cardiac standpoint she is stable. Denies anginal symptoms. Symptoms of claudication are stable as well. BP elevated today. Feel combination of pain and NSAIDs. Keep appointment with headache specialist. Follow-up in 6 months. As long as her claudication remains stable plan was to treat with medicine per vascular surgery. Follow-up in 6 months. Left shoulder arthroscopy, RCR 12/09/20= Done under [facility] initially with LMA #4. Transitioned to ETT (due to positional issues). Grade 2 view with MAC #3. ETT #7.5. Atraumatic x 1 DL. Teaching & Discussion Pre-Anesthesia Teaching/Discussion Notes: Instructed NPO after midnight before surgery,except medications with 15 cc of water. Medication instructions provided according to the PAT guidelines. History Surgery Operation Date: 03/17/24 11:00 Proposed Procedures p Right Reverse Total Shoulder Arthroplasty - Gary Chiu, Height/Weight Height: 5 ft 6 in Weight: 84.1 kg Allergies Allergy/AdvReac Type Severity Reaction Status Date / Time sugammadex Allergy Severe Bronchospasms>stopped Verified 02/05/24 13:19 breathing prednisone Allergy Intermediate ELEVATED BP Verified 02/05/24 13:19 hydromorphone Allergy Mild RASH Verified 02/05/24 13:19 codeine AdvReac Intermediate NAUSEA AND Verified 02/05/24 13:19 DIZZY oxycodone AdvReac Intermediate DIZZINESS,N Verified 02/05/24 13:19 AUSEA Additional Notes: Sugammadex- caused bronchospasms after CABG- had to be reintubated and in ICU x 2 weeks Medications Home Medications Medication Instructions Recorded Confirmed Last Taken acetaminophen 500 mg tablet 1,000 mg PO Q6H PRN Pain 03/28/21 02/05/24 08/10/22 (Tylenol Extra Strength) multivitamin 1 tab PO QAM 03/28/21 02/05/24 08/10/22 aspirin 81 mg tablet,delayed 81 mg PO QAM 06/24/21 02/05/24 08/10/22 release (Adult Aspirin Regimen) cilostazol 100 mg tablet 100 mg PO BID 08/19/21 02/05/24 08/10/22 escitalopram oxalate 20 mg tablet 30 mg PO QAM 01/03/22 02/05/24 08/11/22 08:00 famotidine 20 mg tablet 20 mg PO QPM 01/05/22 02/05/24 08/10/22 amlodipine 5 mg tablet 5 mg PO QAM 03/28/23 02/05/24 Unknown calcium carbonate 600 mg-vitamin 1 tab PO DAILY 03/28/23 02/05/24 Unknown D3 10 mcg (400 unit) tablet (Calcium 600 + D(3)) bupropion HCl 300 mg 24 hr tablet, 300 mg PO BID 02/05/24 02/05/24 Unknown extended release calcium 650 mg-vitamin D3 12.5 1 tab PO QAM 02/05/24 02/05/24 Unknown mcg-vitamin K 40 mcg chewable tablet (Viactiv) coQ10 (ubiquinol) 100 mg capsule 100 mg PO QAM 02/05/24 02/05/24 Unknown metoprolol succinate 25 mg 12.5 mg PO HS 02/05/24 02/05/24 Unknown tablet,extended release 24 hr pantoprazole 20 mg tablet,delayed 20 mg PO BID 02/05/24 02/05/24 Unknown release rosuvastatin 5 mg tablet 5 mg PO QPM 02/05/24 02/05/24 Unknown Past Medical History Medical History (Updated 02/21/24 @ 08:49 by Eli Mane PA-C) Anesthesia complication post CABG bronchospasm after extubation due to sugammadex; required longer ventilation Anxiety and depression Arthritis CAD (coronary artery disease) s/p 3 vessel CABG [address] Seth Cardiac murmur Faint (II/) at PAT appt 02/21/24; "soft systolic murmur" noted in cardio records ECHO 2020 showed no significant heart valve issues GERD (gastroesophageal reflux disease) Stable Headache Occipital area- will be seeing neurologist apt February 2024 for symptoms History of COVID-19 06/19/2022- no current Hyperlipidemia Hypertension MISA (obstructive sleep apnea) Intolerant to CPAP per records PAD (peripheral artery disease) - >75% right proximal popliteal stenosis, left occlusion distal SFA into proximal popliteal with mid popliteal reperfusion per cardio records - On Cilostazol - Saw Dr Hung once but never followed up afterwards Exercise / Class Metabolic Activity III < 4 Walking/Shop/Light housework (no chest pain or SOB with flat surface ambulation- occ cane use due to sciatica pain ) Past Family History Family History Other No family history of adverse response to anesthesia Past Surgical History Surgical History Fusion of spine LUMBAR History of anesthesia reaction bp drops on occasion >was told to have surgeries at a hospital setting History of bunionectomy left/rt History of cardiac catheterization 02/2021 - [facility] – [place] --> CABG History of cataract extraction with lens replacement right/left History of cholecystectomy History of colonoscopy History of coronary artery bypass graft 02/2021 [facility] – [place] - CABG x 3 (MURRAY to LAD; SVG -OM; SVG-RCA) followed by Dr. Warren History of esophagogastroduodenoscopy (EGD) History of hammer toe correction x 2 History of hysterectomy History of laminectomy cervical History of repair of rotator cuff LEFT History of repair of rotator cuff right History of tooth extraction History of total hip arthroplasty right History of total knee replacement right/left S/P epidural steroid injection S/P trigger finger release Past Anesthesia History No Hx of Anesthesia Complications (with exception to reaction to sugammadex (bronchospasms) ) and No Family Hx of Anesthesia Complications History of PONV No Hx of PONV and No Hx of Motion Sickness Social History Smoking Status: Former smoker tobacco type: cigarettes Do You Dip or Chew Tobacco: No Smoking End Date: Hx Alcohol Use: Yes Alcohol type: wine alcohol intake frequency: a few times a month Hx Substance Use: No substance use type: does not use Review of Systems Patient denies chest pain, shortness of breath, dyspnea on exertion, cough, wheezing, palpitations. No hx of seizures, stroke. No hx of blood clots or blood transfusions Physical Exam Vital Signs VITALS BP 119/74 P 64 TEMP 97.9 SP02 97% RESP 16 Constitutional no acute distress ENMT Mouth: no TMJ clicking Thyromental Distance: > or= 3.5 Finger Breadths (3.5) Mallampati Class: III Missing molars Permanent implants- to side teeth Crowns to side teeth Neck + limited neck extension (significant ) Respiratory normal respiratory effort; no respiratory distress Auscultation: lungs clear to auscultation bilaterally; no wheezes Cardiovascular Rate/Rhythm: regular rate and regular rhythm Heart Sounds: + murmur (II/ murmur) Vessels: no carotid bruit Musculoskeletal Spine: + pain with cervical ROM Extremities: extremities normal to inspection Psychiatric Orientation: alert Lab Results Anesthesia Preop Results Results Anesthesia Widget: WBC 6.01 K/ul (4.8-10.8) 02/20/24 Hgb 12.3 g/dl (12.0-16.0) 02/20/24 Hct 36.1 % (37.0-47.0) L 02/20/24 Plt 236 K/uL (130-400) 02/20/24 Na 139 mmol/L (136-145) 02/20/24 K 4.6 mmol/L (3.5-5.1) 02/20/24 Cl 103 mmol/L (98-107) 02/20/24 CO2 31 mmol/L (21-32) 02/20/24 BUN 23 mg/dl (6-23) 02/20/24 Creat 1.24 mg/dl (0.6-1.2) H 02/20/24 Glucose Level 112 mg/dl (70-99(Fasting)) H 02/20/24 PT 10.5 Seconds (9.0-12.0) 02/20/24 PTT 25 Seconds (21-31) 02/20/24 INR 1.0 (0.9-1.1) 02/20/24 Blood Type O Negative 02/20/24 Antibody Screen NEGATIVE 02/20/24 Testing Electrocardiogram Date: 02/20/24 Findings: + NSR @ (65bpm) Incomplete RBBB Nonspecific T wave abnormality Chest X-Ray Date: 02/20/24 FINDINGS: Postoperative findings within the spine, median sternotomy wires and mediastinal surgical clips are noted. A calcified density at the gastroesophageal junction is unchanged from earlier exams. Cardiomediastinal silhouette is stable. No evidence for pulmonary edema. No consolidation to suggest pneumonia. There is no pneumothorax or pleural effusion. IMPRESSION: No acute cardiopulmonary findings. No change in appearance of the chest. Echocardiogram Date: 03/29/21 EF: 60-65% LV Function: normal RWMA: + none Other Findings: + LVH (mild to moderate ) LA mildly dilated. RA borderline dilated Atrial septum is hypermobile without evidence of inter-atrial communication Mild MR. Mild TR
[~2024-03-17 07:40] MED LIST changes: -AMLO5TAB3 PO; -ASPI81TA28 PO; -ATEN-173 PO; -ATOR-24 PO; -BENICAR PO; +BUPIVACAINE 0.5 % 5 MG/1 ML PF 10ML VIAL ONE; -CITA20TA4 PO; -IOPAMIDOL INJ 61% 15 ML VIAL ONE; -LIDOCAINE HCL 1% MPF 5 ML VIAL ONE; -MULT-506 PO; -PRLSR20 PO; -SODIUM CHLORIDE 0.9% INJ 10 ML VIAL ONE
--- OUTSIDE RECORDS SUMMARY | 2024-03-17 07:47 | External Medical Summary | Continuity of Care Document ---
Author Name Unknown Organization [facility] [address] [place] [phone] Care Team Providers Care Blueprint Duplicator Name Role Phone Aziza Michel Primary Care Physician [phone] Encounter [facility] [id number] Date(s): 02/28/24 - 02/28/24 [facility] 0 [facility] 207 [facility] 1850 [facility] [address] [place] [address] [phone] Encounter Diagnosis Body mass index [BMI] 31.0-31.9, adult(Discharge Diagnosis) - 02/28/24 Chronic neck pain with history of cervical spinal surgery(Discharge Diagnosis) - 02/28/24 Discharge Disposition: Home or Self Care Attending Physician: MD Michel Amy L Allergies, Adverse Reactions, Alerts Substance Criticality Severity Reaction Reaction Severity Status codeine nausea and dizzy Act jose antonio morphine N/A Active predniSONE Unable to assess criticality Severe blood pressure went over 200 Active sugammadex Bronchospasm ca used by drug Bronchospasm Active Dilaudid Rash Active Percocet 5/325 Confusion Dizziness Active oxyCODONE N/A Active Immunizations Given and Recorded Vaccine Date Status Refusal Reason SARS COVID Vaccine Unspecified 06/28/23 Recorded RSV Vaccine Unspecified 06/19/23 Recorded influenza virus vaccine, inactivated 06/19/23 Alvino rded influenza virus vaccine, inactivated 06/21/21 Give n influenza virus vaccine, inactivated 05/19/20 Give n influenza virus vaccine, inactivated 06/26/17 Give n influenza virus vaccine, inactivated 42 Alvino rded tetanus/diphtheria/pertuss, acel (Tdap) 12/18/22 R ecorded SARS-CoV-2 mRNA (Pfizer 12+) bivalent 1 09/22/22 R ecorded SARS-CoV-2 (COVID-19) mRNA-1273 vaccine 2 04/07/22 Recorded SARS-CoV-2 (COVID-19) mRNA-1273 vaccine 3 08/15/21 Recorded SARS-CoV-2 (COVID-19) mRNA-1273 vaccine 4 11/19/20 Recorded SARS-CoV-2 (COVID-19) mRNA-1273 vaccine 10/14/20 R ecorded pneumococcal 13-valent vaccine 02/27/18 Given 1Result Comment: 2022-09-22: Historical information-source unspecified 2Result Comment: 2022-09-22: Historical information-source unspecified 3Result Comment: 2022-09-22: Historical information-source unspecified 4Result Comment: 2021-02-03: Historical information-source unspecified Medications amLODIPine 5 mg oral tablet Start: 12/20/23 2:32:00 PM EDT, 1 tab, PO, Daily, Disp# 90 tab, Refills: 3, Pharmacy: [id number] Start Date: 12/20/23 Status: Ordered amoxicillin 500 mg oral capsule Start: 11/28/23 8:39:00 PM EDT, 4 cap, PO, As indicated, Disp# 12 cap, Refills: 0, one hour before dental and other procedures as directed, Pharmacy: [id number] Start Date: 11/28/23 Status: Ordered aspirin 81 mg oral delayed release tablet Start: 02/15/21 4:33:00 PM EDT, 1 tab, PO, Daily Start Date: 02/15/21 Status: Ordered black cohosh Start: 01/21/24 1:52:00 PM EDT, black cohosh Start Date: 01/21/24 Status: Ordered buPROPion 150 mg/24 hours (XL) oral tablet, extended release Start: 10/07/23 8:56:00 AM EST, 1 tab, PO, bid, Disp# 60 tab, Refills: 5, Pharmacy: [id number] Start Date: 10/07/23 Status: Ordered calcium (as calcium citrate) 250 mg oral tablet Start: 04/20/21 4:02:00 PM EDT Start Date: 04/20/21 Status: Ordered cilostazol 100 mg oral tablet Start: 12/20/23 2:32:00 PM EDT, 1 tab, PO, bid, Disp# 180 tab, Refills: 3, Pharmacy: [id number] Start Date: 12/20/23 Status: Ordered Co-Q10 Start: 07/24/22 9:39:00 AM EST Start Date: 07/24/22 Status: Ordered escitalopram 20 mg oral tablet Start: 10/30/23 4:28:00 PM EST, 30 each, TAKE 30 mg BY MOUTH ONCE DAILY Start Date: 10/30/23 Status: Ordered famotidine 20 mg oral tablet Start: 04/01/21 9:31:00 AM EDT, 1 tab, PO, bid Start Date: 04/01/21 Status: Ordered ibuprofen Start: 12/14/23 12:53:00 PM EDT, 400 mg =, PO, daily a few times Start Date: 12/14/23 Status: Ordered Metoprolol Succinate ER 25 mg oral tablet, extended release Start: 10/30/23 4:29:00 PM EST, 45 each, TAKE 1/2 (ONE-HALF) TABLET BY MOUTH EVERY DAY AT BEDTIME Start Date: 10/30/23 Status: Ordered MiraLax oral powder for reconstitution Start: 04/13/21 3:29:00 PM EDT, 17 g =, PO, Daily Start Date: 04/13/21 Status: Ordered Multiple Vitamins oral capsule Start: 05/08/17 3:42:00 PM EDT, 1 cap, PO, Daily Start Date: 05/08/17 Status: Ordered pantoprazole 40 mg oral delayed release tablet Start: 09/13/23 1:05:00 PM EST, 1 tab, PO, bid, Disp# 180 tab, Refills: 0, Pharmacy: [id number] Start Date: 09/13/23 Status: Ordered rosuvastatin 20 mg oral tablet Start: 10/30/23 4:29:00 PM EST, 90 each, TAKE 1 TABLET BY MOUTH EVERY DAY AT BEDTIME Start Date: 10/30/23 Status: Ordered tiZANidine 4 mg oral tablet Start: 10/30/23 4:29:00 PM EST, 90 each, TAKE 1 TABLET BY MOUTH EVERY 8 HOURS . BEGIN WITH 1/2 TABLET AND ADVANCE TO A FULL TABLET TOLERATED Start Date: 10/30/23 Status: Ordered Tylenol 500 mg oral tablet Start: 06/28/21 1:13:00 PM EDT, 2 tab Start Date: 06/28/21 Status: Ordered Voltaren 1% topical gel Start: 04/06/21 3:56:00 PM EDT Start Date: 04/06/21 Status: Ordered Mental Status 02/28/24 Barriers to Learning one year None evide nt Mandatory Health Literacy Documentation Yes Health Literacy Communication Barriers N ever Primary Language Tamazight Problem List Condition Confirmation Course Effective Dates Status H ealth Status Informant Abrasion, right foot, initial encounter Confirmed Active Accidental fall Confirmed Active Anterior chest wall pain Confirmed Active Anxiety Confirmed Active Arthritis of left foot Confirmed Active Arthritis of right foot Confirmed Active Facet arthropathy, lumbar Confirmed Active Xerosis of skin Confirmed Active Caregiver stress Confirmed Active Bilateral occipital neuralgia Confirmed Active Changing skin lesion Confirmed Active Chronic headache Confirmed Active CAD (coronary artery disease) Confirmed Active Daytime somnolence Confirmed Active Epigastric pain Confirmed Active Excessive sweating Confirmed Active Right foot pain Confirmed Active GERD (gastroesophageal reflux disease) Confirmed Active S/P hammer toe correction Confirmed Active S/P foot surgery, left Confirmed Active Hammertoe of left foot Confirmed Active Headache Confirmed Active S/P CABG x 3 Confirmed Active History of lumbar spinal fusion Confirmed Active History of basal cell carcinoma of skin Confirmed Active Status post bilateral knee replacements Confirmed Active History of colon polyps Confirmed Active Hyperdynamic circulation Confirmed Active Hyperlipidemia Confirmed Active Hypertension Confirmed Active Iliotibial band syndrome, right leg Confirmed Active Inflamed seborrheic keratosis Confirmed Active Claudication Confirmed Active Lower limb length difference Confirmed Active Low back pain Confirmed Active Failed back syndrome, lumbar Confirmed Active Left lumbar radiculopathy Confirmed Active MDD (major depressive disorder), single episode Confirmed Active Mediastinal mass Confirmed Active Melanocytic nevus of trunk Confirmed Active Anxious depression Confirmed Active Actinic keratoses Confirmed Active Myofascial pain Confirmed Active Neck pain Confirmed Active Pulmonary nodule Confirmed Active Non compliance w medication regimen Confirmed Active Obstructive sleep apnea Confirmed Active Osteoarthritis of left knee Confirmed Active Annual physical exam Confirmed Active Peripheral arterial disease Confirmed Active PAD (peripheral artery disease) Confirmed Active Hemorrhage, petechial Confirmed Active Right sided sciatica Confirmed Active Seborrheic keratoses Confirmed Active Solar purpura Confirmed Active Lumbar spinal stenosis Confirmed Active Splenic lesion Confirmed Active Tailor's bunionette, left Confirmed Active Tension headache Confirmed Active Diagnosis Diagnosis Type Effective Dates Health Status Cl inical Service Informant Body mass index [BMI] 31.0-31.9, adult Discharge Diagnosis 02/28/24 Non-Specified Chronic neck pain with history of cervical spinal surgery Discharge Diagnosis 02/28/24 Non-Specified Procedures Procedure Date Related Diagnosis Body Site Status Mammogram 1 04/18/23 Completed Surgery 2 08/11/22 Completed Mammogram - screening 3 04/13/[address] 4 01/05/22 Completed Electrodesiccation with curettage 5 12/20/21 Completed Colonoscopy 6 10/26/21 Completed Upper GI (gastrointestinal) endoscopy 7 10/26/[address] of chest with contrast 8 07/14/21 Completed Injection 9 07/13/21 Completed Chest x-ray 10 03/28/[address] of abdomen and pelvis 11 03/28/[address] of chest 12 03/28/21 Completed Venous doppler ultrasonography 13 03/28/21 Completed Rotator cuff repair 01/19/21 Compl eted Upper GI endoscopy 14 01/11/21 Com pleted Upper GI endoscopy 15 01/11/21 Com pleted X-ray 16 09/22/20 Completed X-ray 17 04/15/18 Completed DEXA of axial and appendicul ar skeleton 04/09/18 Completed Mammogram 18 04/05/18 Completed CAT scan 19 03/21/18 Completed CAT scan 20 03/21/18 Completed Mammogram - screening 21 03/20/18 Completed Knee replacement 22 08/29/[address] of abdomen 23 06/15/17 Complete d Colonoscopy 24 06/12/17 Completed Upper GI endoscopy 25 06/12/17 Com pleted History of hip surgery 2016 Completed Colonoscopy 27 09/02/15 Completed Endoscopy 28 09/02/15 Completed Cataract surgery 2011 Complete d Lumbar spinal fusion 2005 Comp leted right Knee replacement 2005 Completed Bunionectomy 2000 Completed Cervical laminectomy 1999 Comp leted Cholecystectomy 1996 Completed Hysterectomy 1977 Completed 1No evidence of malignancy. 1 year screening recommended. 2Hammer toe surgery 3There is no mammographic evidence of malignancy. A 1 year screening mammogram is recommended. (04/14/2023) 4Nondisplace left anterolateral third through eigth rib fractures. No pneumothorax. Stable scattered pulmonary nodules with the largest in the left lower lobe measuring 10mm. This measues a small cavitary focus. Continued sith-month chest CT follow-up recommended. Addtional findingsas above. 5#3 curette x3 6Impression: Diverticulosis in the sigmoid colon The emination was otherwse normal on direct and retroflexion views. No Specimens collected. 7Impression: Normal esophagus Normal stomach. Biopsied - did not show any inflammation or signs of infection Normal examined duodenum. 8Impression: Compared to the previous examination, there is no change in the previously identified subcentimeter pulmonary nodules. No new pulmonary nodules are identified. The largest described pulmonary nodule on the prevous study actually has some central lucency and is most characteristic of parenchymal scarring. No acute chest disease. Additional nonacute findings a delineated above. Continued follow-up in 12 months ir recommended for further evaluation. 9Sacroiliac joint injection at [facility] 101. atelectasis or scarring within left lower lung 2. The rest of findingsas above 111. no acute intraabdominal process 2. Nondilated loops of bowel. Appendix is not well seen 3. Status post cystectomy 4. Excreted contrast within collecting system which limits evaulation for nephrolithiasis 5. Atherosclerosis 6. stable partially calcified large paraesophageal lesion which is unchanged since 2017 most likelyrepresenting benign etiology. Please correlate aboe mentioned findings with prior history 121. multiple pulmonary nodules throughout bilateral lungs, largest is measuring 10 x 5 mm in size and seen within left lower lobe. No prior study for comparison available. Short term follow up in 3 months or per clinical protocol is recommended 2. Status post CABG. Mulltiple linear densities within left upper lobe and lingula might be relatedto recent surgery. Please correlate with prior surgical history 3. Large partially calcified paraesophageal lesion whcih was also seen on chest radiograph in 2017 and most likel benign. Differential diagnosis include large calcified lymph node versus other etiology. Please correlate above mentioned findings with prior history 4 the rest of findings as detailed above 13no evidence of deep venous thrombosis 14impression: - Z-line regular, 38 cm from the incisors - normal esophagus - multiple gastric poylps - normal examined duodenum - no specimens collected 15Z-line regular, 38cm from the incisors Normal esophagus. Multiple gastric polyps Normal examined duodenum. No specimens collected 16IMPRESSION; No fracture or subluxation within the lumbar spine. Degenerative and posterative changes as described above. 17RIGHT KNEE IMPRESSION No acute process post total bilateral knee arthroplasties 18UNILATERAL LEFT MAMMO AND TARGETED LEFT ULTRASOUND IMPRESSION: left breast asymmetry effaces on the additional spot compression views, without a suspicious sonographic correlate evident. Findings are benign and compatible with norrmal fibroglandular tissue. 19LUMBAR SPINE CT WITHOUT IMPRESSION: 1) Generalized degenerative disc change throughout the low thoracic and entire lumbar spine 20LUMBAR SPINE COMBINATION 21IMPRESSION: ACR BI-RADS CAT 0: INCOMPLETE EVALUATION The 5 mm asymmetry in the lateral left breast needs additional evaluation. 22Left Total Knee Replacement 231) Large 5.9cm lobulated circumscribed dense structure of the inferior aspect posterior mediastinumposterior to the left diaphragmatic travis appears calcified and causes mild mass effect upon the adjacent descending thoracic aorta and distal esophagus containing areas of central soft tissue attenuation. This lesion is nonspecific however is likely benign. As a precautionary measure, a 6 month f/uchest CT recommended. 2) Normal appearance of the spleen. Previously questioned splenic abnormalities were likely from artifact secondary to the aforementioned lesion 3) Prior cholecystectomy 24[facility] A. Duodenum biopsy: 1. Duodenal mucosa with no pathologic alteration. Follow up as needed 25- Normal esophagus. - Z-line regular, 40 CM from the incisors. - Normal stomach - Normal second portion of the duodenum, biopsied. 26right 27non bleeding internalhemorrhoids. Diverticulosis in the sigmoid colon Four 4-6 mm polyps in the descending colon, at the hepatic flexure, in the ascending colon and in the mid ascending colon. Resected and retrieved Three 3 to 10mm polyps at the splenic flexure, resected and retrieved 28no gross lesions in the duodenum, small hiatus hernia 29right Vital Signs Most recent to oldest [Reference Range]: 1 Height 163 cm (02/28/24 9:52 AM) Patient Weight 83.8 kg (02/28/24 9:52 AM) Body Mass Index 31.54 kg/m2 (02/28/24 9:52 AM) Heart Rate 76 bpm (02/28/24 9:52 AM) Respiratory Rate 18 br/min (02/28/24 9:52 AM) Blood Pressure 164/82mmHg (02/28/24 9:52 AM) Cuff Pulse Pressure 82 mmHg (02/28/24 9:52 AM) Social History Social History Type Response Tobacco Former smoker, Start ed age 15 Years. Stopped age 39 Years. Smoking Status Never smoked cigaret daniel Sex Female Patient Care team information Care Team Personnel Name: HENNY Goodman Mayeen R Position: Nurse Pract - CT Surgery Member Role: Lifetime Relationship Address: Address: [address] [place] [id number] [place] Name: MD Marilu, Aziza Murdock Position: Physician - Family Med Member Role: Primary Care Provider Address: Address: [address] [place] [id number] [place] Name: Mansoor Luke Ann Position: Pharmacist Schedule II Member Role: Pharmacy - Lifetime Name: MD Juan Jose, Jania Position: Physician - CT Surgery Member Role: Lifetime Relationship Address: Address: [address] [place] [id number] [place] Name: CLAUDIA Howard Lynn Position: Physician Retoucher Photoengraving Exempt - Vasc Surg Member Role: Lifetime Relationship Address: Address: [address] [place] [address], [place] [address] [place] Name: NIKO Forrester, Ting Murdock Position: Physician - Podiatry Member Role: Lifetime Relationship Address: Address: [address] [address] [place] Name: MD Aletha, Fareed Hill Position: Physician - Sports Medicine [place] Member Role: Lifetime Relationship Address: Address: [address] [address] [place] Name: Mansoor Cheung Jennifer Position: Pharmacist Schedule II Member Role: Pharmacy - Lifetime Name: Brendon Martinez Position: HIS Supervisor_P Member Role: HIS Lifetime Care Team Related Persons Name: DELROY MUJICA Address: home [address] [facility] [facility], [phone]
[2024-03-17] MEDS ORDERED: MIDAZOLAM HCL 1 MG/ML 2ML VIAL ONE (08:20)
[2024-03-17] MEDS ORDERED: ONDANSETRON INJ 2 MG/ML 2 ML VIAL ONE (08:20)
[2024-03-17] MEDS ORDERED: PROPOFOL IV EMULSION 10 MG/ML 20 ML VIAL IV ONE (08:20)
[2024-03-17] MEDS ORDERED: fentaNYL citrate PF 100 MCG/2 ML VIAL ONE (08:20)
[2024-03-17] MEDS ORDERED: LIDOCAINE 2% 2 ML VIAL/AMP(20MG/ML) INFIL ONE (08:20)
[2024-03-17] MEDS: LR 60ML/HR IV SCH (08:36)
[2024-03-17] MEDS: LR 15ML/HR IV SCH (08:36)
[2024-03-17] MEDS: ACETAMINOPHEN 500 MG TAB PO SCH ×2 (08:37→13:05)
[2024-03-17] MEDS: FAMOTIDINE 20 MG TAB PO SCH ×2 (08:38→21:50)
[2024-03-17] MEDS: dexAMETHasone**PF** 10 MG/ML VIAL IV SCH (08:38)
[2024-03-17] MEDS: GABAPENTIN 300 MG CAP PO SCH (08:38)
--- NOTE | 2024-03-17 08:44 | History & Physical Bridge Note ---
Date of Service March 17, 2024 History & Physical Bridge Note I have examined the patient, reviewed the History & Physical and in the interval since the performance of the History & Physical I have noted the following changes of clinical significance: no changes noted
[2024-03-17] MEDS ORDERED: ePHEDrine sulfate 50 MG/ML AMP IV PRN (09:23)
[2024-03-17] MEDS ORDERED: fentaNYL citrate PF 100 MCG/2 ML VIAL IV PRN (09:23)
[2024-03-17] MEDS ORDERED: ATROPINE SULFATE 0.1 MG/ML 10ML SYR IV PRN (09:23)
[2024-03-17] MEDS ORDERED: ONDANSETRON INJ 2 MG/ML 2 ML VIAL IV PRN ×2 (09:23→12:08)
[2024-03-17] MEDS: TRANEXAMIC ACID 1,000 MG **IV Pre-op IV SCH (09:27)
[2024-03-17] MEDS: ceFAZolin 2000MG 2,000 MG/15 ML SYR IV SCH ×2 (09:38→18:02)
[2024-03-17] MEDS ORDERED: ePHEDrine sulfate 50 MG/5 ML SYR ONE (10:09)
[2024-03-17] MEDS: ROPIV 0.5% 246mg, Ketorolac 30mg, EPINEPHrine 0.5mg in NSS INFIL SCH (10:20)
[2024-03-17] MEDS: ORTHO JOINT ANESTHETIC ONE (10:20)
[2024-03-17] MEDS: TRANEXAMIC ACID 1,000 MG **IV Intra-op IV SCH (10:42)
--- NOTE | 2024-03-17 10:45 | Operative Report ---
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 A tenodesis was opted. This was a separate and distinct portion of the procedure. For these reasons, a CPT code modifier 59 will be added to this case. Implants used: I used a [employer]omet Comprehensive reverse total shoulder arthroplasty system with a size 10 press fit micro humeral stem, a +6 offset humeral tray and a +3 retentive humeral bearing, a 25 mm baseplate with a 6.5 mm central screw and superior and inferior locking screws, and a size 36 mm eccentric glenosphere. Rocio arrived at [facility] for the above procedure. She was seen in the preoperative holding area and the operative extremity was identified and signed. She was given a preoperative antibiotic, TXA, and an interscalene nerve block. She was taken back to the operating room, laid on table in supine position, and put under general anesthesia. She was then put into the beachchair position. The shoulder was then prepped and draped in sterile fashion. A timeout was done and the patient and the operative extremity was properly identified. A deltopectoral approach was used. Dissection was taken down through the fascia and the deltoid was retracted laterally and the conjoined tendon was retracted medially. The anterior shoulder was exposed. The biceps groove was opened up and the biceps tendon was examined extensively. The biceps tendon demonstrated enlargement and inflammatory changes consistent with longstanding inflammation in the context of osteoarthritis and cuff arthropathy. The long head of the biceps tendon was then tenodesed to the upper border of the pectoralis major. This was a separate and distinct portion of the procedure. The subscapularis was then directly released off the lesser tuberosity with a peel technique. The inferior capsule was released and the humeral head was dislocated. A canal finding reamer was sent down the center of the humeral canal. Sequential reaming up to a size 10 reamer was done. Off that reamer, a proximal humeral resection guide was placed. The proximal humerus was resected at 135 of inclination and 25 of retroversion. Osteophytes were then removed and the glenoid was exposed. Time was spent doing a complete capsular and labral release. The glenoid guide was then placed in the inferior aspect of the glenoid. A 3.2 mm Steinmann pin was then placed into the glenoid vault at 10 of inclination. The glenoid baseplate was then reamed. The final size 25 mm baseplate was then impacted in the place. A 6.5 mm central screw was then placed followed by superior and inferior locking screws. A 36 mm eccentric glenosphere was then impacted into place. Surrounding soft tissues were then injected with 100 cc an orthopedic pain control cocktail. The proximal humerus was then exposed. Sequential broaching of the humerus up to a size 10 broach was done. Off that broach a +6 offset and +3 retentive humeral tray was trialed. The shoulder was then reduced, brought through a full range of motion, and felt to be stable. The shoulder was then dislocated and the broach was removed. The final size 10 micro press-fit humeral stem was then impacted into place. A +3 retentive humeral bearing was then snapped onto a +6 offset humeral tray. The humeral tray was then impacted onto the humeral stem. The shoulder was once again reduced, brought through a full range of motion, and felt to be stable. The subscapularis was retracted and unable to be repaired. A dilute betadyne lavage was then done for 3 minutes. The joint was then irrigated with normal saline solution. Hemostasis was obtained. The interval was closed with 2-0 Vicryl sut ure. The skin was then closed with 2-0 Vicryl and beti. A Silverlon dressing was placed and the arm was rested in a regular arm sling. She was then extubated and transferred to a hospital bed. She taken to the postanesthesia care unit in stable condition. She tolerated the procedure well. Gary Dominik, PA-C, was present for the entire procedure. He was critical for patient positioning, prepping, draping, retraction exposure, wound closure and application of sterile dressing. I attest to the content of the Intraoperative Record and any orders documented therein. Any exceptions are noted below.
[2024-03-17] MEDS: SODIUM CHLORIDE 0.9% 1,000 ML IV SCH (12:00)
[2024-03-17] MEDS ORDERED: METOCLOPRAMIDE HCL INJ 5 MG/ML 2 ML VIAL IV PRN (12:08)
[2024-03-17] MEDS ORDERED: NALOXONE HCL 0.4 MG/1 ML VIAL/CARP IV PRN (12:08)
[2024-03-17] MEDS ORDERED: MAGNESIUM HYDROXIDE SUSP 30 ML UDC PO PRN (12:08)
[2024-03-17] MEDS ORDERED: HYDROmorphone INJ 0.5 MG/0.5 ML SYR IV PRN (12:08)
[2024-03-17] MEDS ORDERED: bisacodyL 10 MG SUPP PR PRN (12:08)
--- NOTE | 2024-03-17 12:41 | Anesthesiology Progress Note ---
Date of Service March 17, 2024 Anesthesia Post Procedure Vital Signs Vital Signs: Temp Pulse Pulse Resp BP Pulse Ox O2 Del Method 03/17/24 12:24 97.7 F 67 18 139/83 96 Nasal Cannula 03/17/24 11:30 69 18 143/77 H 93 Nasal Cannula 03/17/24 11:10 72 13 157/68 H 95 Oxymask 03/17/24 11:00 97.2 F L 70 14 166/67 H 96 Oxymask 03/17/24 08:19 97.5 F L 61 20 179/71 H 97 Room Air O2 Flow Rate 03/17/24 12:24 2 03/17/24 11:30 3 03/17/24 11:10 6 03/17/24 11:00 10 03/17/24 08:19 Pain Intensity Right Shoulder: Pain Intensity: 6 Neck: Pain Intensity: 8 Transfer of Care Handoff Completed per policy Notes Mental Status: alert / awake / arousable and participated in evaluation Patient Amnestic to Procedure: Yes Nausea / Vomiting: adequately controlled Pain: adequately controlled Airway Patency, RR, SpO2: stable & adequate BP & HR: stable & adequate Hydration State: stable & adequate Anesthetic Complications: no major complications apparent and Pt Satisfied with anesthetic care
[2024-03-17] MEDS: KETOROLAC TROMETHAMINE 15 MG/ML VIAL IV SCH (13:05)
--- NOTE | 2024-03-17 13:50 | XRay Report ---
XR shoulder RT min 2V routine HISTORY: 83 years-old Female Post shoulder surgery right shoulder arthroplasty COMPARISON: Chest radiographs 02/20/2024 TECHNIQUE: 2 views of the right shoulder FINDINGS: Satisfactory alignment of the right shoulder arthroplasty. Expected postoperative soft tissue swellin g with deep tissue air and overlying skin beti. Moderate degeneration of the AC joint. No acute fr acture identified. Right basilar atelectasis. Sternotomy wires are present. IMPRESSION: Right shoulder arthroplasty with expected postoperative changes. ACT 112: Negative or not required by law. The above report was generated using voice recognition software. It may contain grammatical, syntax o r spelling errors. Electronically signed by: Chad House M.D. 03/17/2024 1:49 PM
[2024-03-17] MEDS: traMADol HCL 50 MG TABLET PO PRN (15:30)
[2024-03-17] MEDS: SENNA 8.6 MG TAB PO SCH (21:49)
[2024-03-17] MEDS: DOCUSATE SODIUM 100 MG CAP PO SCH (21:50)
[2024-03-17] MEDS: NORTRIPTYLINE HCL 10 MG CAP PO SCH (21:50)
[2024-03-17] MEDS: ROSUVASTATIN CALCIUM 5 MG TAB PO SCH (21:51)
[2024-03-17] MEDS: METOPROLOL SUCC 25MG EXT REL TAB PO SCH (21:51)
[2024-03-17] MEDS: cilostazoL 100 MG TAB PO SCH (21:52)
--- NOTE | 2024-03-18 07:09 | Orthopedic Progress Note ---
Date of Service March 18, 2024 Assessment & Plan (1) Status post reverse total replacement of right shoulder: Overall she is doing okay. She is having some soreness in her shoulder which is to be expected. She will be seen by physical therapy today for ambulation and range of motion exercises. If she does well with therapy then she can be discharged home. She will follow-up orthopedics in 2 weeks. Subjective Rocio was seen and examined at bedside this morning. Overall she is doing okay. She is having some pain in her right shoulder. She had some difficulty sleeping last night. She had no acute events overnight.. Review of Systems All systems reviewed & are unremarkable except as noted in HPI & below. Physical Exam On physical examination of right shoulder, the dressing is clean and dry. She is wearing her sling as instructed. She has active motion of her hand and wrist.. Results & Data Results & Data Laboratory Results . Diagnostic Findings Postoperative x-rays of the right shoulder show the prosthesis to be in anatomic alignment without any evidence of fracture complication, or loosening.. PG Care Time/CCT Total # of Minutes Spent Total Time Spent with Patient: Total time spent is greater than 50% in coordination of care (as documented) at patient's floor/unit and/or counseling patient: Coding Level of Care Code 54456 Post Operative Follow-Up Diagnoses Status post reverse total replacement of right shoulder Z96.611
--- NOTE | 2024-03-18 07:10 | Discharge Summary ---
Date of Service March 18, 2024 Principal Diagnosis Same as "Discharge Diagnosis" noted below under Discharge Instructions. Discharge Exam On physical examination of right shoulder, the dressing is clean and dry. She is wearing her sling as instructed. She has active motion of her hand and wrist.. Discharge Data Procedures Performed Operation Date: 03/17/24 10:00 Actual Procedures p Right Reverse Total Shoulder Arthroplasty, Uncemented(Right) - Gary Chiu DO Ordered Studies 03/17/24 05:00 US - OR guided needle placemen Routine Hospital Course (1) Status post reverse total replacement of right shoulder: On March 17, 2024 Rocio arrived at [facility] and underwent a right reverse shoulder replacement without complication. She had a general anesthetic and a right interscalene nerve block. Postoperatively she was placed in a sling and transferred to the general orthopedic floors. Her hospital course was uneventful. On postop day #1, her vital signs were stable. She was able to participate well with physical therapy doing ambulation and range of motion exercises. She was then discharged home. She will follow-up with orthopedics in 2 weeks. PG Care Time/CCT Total # of Minutes Spent Total Time Spent with Patient: Total time spent is greater than 50% in coordination of care (as documented) at patient's floor/unit and/or counseling patient: Discharge Plan Discharge Items Patient Disposition: Home - Self-Care Reason For Visit: Degenerative Joint Disease Right Shoulder Discharge Diagnosis: Right reverse shoulder replacement Activity: Per Instructions section Non-emergency contact: Surgeon Call non-emergency contact if: your wound has increased redness and your wound has increased drainage Follow-up/Referrals: Aziza Michel MD [Primary Care Provider] - Diet: Regular Addtl Attending Provider Instructions: Activity and Therapy Recommendations: * Therapy is not necessary if you choose not to participate. * Wear your sling for 3 weeks, unless otherwise instructed. You may remove your sling to shower and to dress, but otherwise, you should be in your sling at all times, including while sleeping * The shoulder replacement is very stable and you can use your hand while in the sling Medications: * Narcotic You will likely be sent home from the hospital with a prescription for the narcotic pain medication that worked best throughout your stay. * Cefadroxil -take the antibiotic twice a day for 10 days to help prevent infection. * Other medications may be prescribed for specific circumstances. If you have any questions, please call the office at . * Resume previous home medications unless otherwise instructed Dressing Care: Leave the Silverlon dressing in place for 7 days. After 7 days you may remove the dressing. If the incision is not draining then you may leave the beti open to air. If there is a little bit of drainage or if the beti are getting stuck on your clothing then cover the incision with a dry dressing. The beti will be removed at your 2 week follow-up appointment. Showering: You may shower with the Silverlon dressing in place. Do not let the shower spray hit the dressing directly. Pat the Silverlon dressing dry. If the dressing becomes wet underneath, then simply remove the dressing. Keep the incision dry until you are 7 days out from the day of surgery. After 7 days you may remove the Silverlon dressing and shower with the beti exposed. Let soapy water run over the beti and pat them dry. Do not scrub or soak the incision. Things To Watch For: * Drainage from the incision site that occurs more than one week after your surgery. * Increased redness at the incision site. * Fever above 102 degrees Fahrenheit. * Unusual chest pain or shortness of breath. * Call [facility] at with any of the above problems Follow-Up Visit: Follow-up with Dr. Chiu's PA (Gary Lehman) 2-3 weeks after your day of surgery. He will remove your beti and answer any questions. If you have any additional questions or concerns, Dr Chiu is usually in the office at the same time and will be available An appointment was probably scheduled when you signed-up for surgery in the office. If you have any questions call More detailed instructions as well as Frequently Asked Questions were provided in a folder by our office when you signed-up for surgery. Please review these instructions when you get home. If you have any further questions or concerns, please feel free to call the office at [phone] Pending Studies at Discharge: No Stand-Alone Forms: [facility], Smoking Cessation Medications and DC Order Prescriptions: New tramadol 50 mg Tablet 50 mg PO Q4H PRN (Reason: pain) Qty: 30 0RF cefadroxil 500 mg capsule 500 mg PO BID 10 Days Qty: 20 0RF Continued aspirin [Adult Aspirin Regimen] 81 mg tablet,delayed release (DR/EC) 81 mg PO QAM escitalopram oxalate [Lexapro] 20 mg tablet 30 mg PO QAM Rx Instructions: TAKES 20 MG + 10 MG = 30MG multivitamin Tablet 1 tab PO QAM acetaminophen [Tylenol Extra Strength] 500 mg Tablet 1,000 mg PO Q6H PRN (Reason: Pain) cilostazol 100 mg Tablet 100 mg PO BID famotidine 20 mg Tablet 20 mg PO QPM amlodipine 5 mg Tablet 5 mg PO QAM pantoprazole [Protonix] 20 mg Tablet,Delayed Release (Dr/Ec) 20 mg PO BID metoprolol succinate 25 mg Tablet Extended Release 24 Hr 12.5 mg PO HS rosuvastatin 5 mg Tablet 5 mg PO QPM bupropion HCl [Wellbutrin XL] 300 mg Tablet Extended Release 24 Hr 300 mg PO BID coQ10 (ubiquinol) 100 mg Capsule 100 mg PO QAM Patient Comments: unsure of dose calcium-vitamin D3-vitamin K [Viactiv] 650 mg-12.5 mcg-40 mcg Tablet,Chewable 1 tab PO QAM nortriptyline [Pamelor] 10 mg capsule 10 mg PO DAILY Rx Instructions: at night Discharge Orders: Discharge Order (Routine); Ordered 03/18/24 Ordered By: Gary Chiu Admission Data Admit Date/Time: 03/17/24 11:00 Attending Provider: Gary Chiu Admit Provider: Gary Chiu Primary Care Provider: Aziza Michel
[2024-03-18] MEDS: ESCITALOPRAM OXALATE 10 MG TAB PO SCH (08:37)
[2024-03-18] MEDS: buPROPion XL 300 MG TABCR PO SCH (08:37)
[2024-03-18] MEDS: amLODIPine BESYLATE 5 MG TAB PO SCH (08:38)
[2024-03-18] MEDS: MULTIVITAMIN TAB PO SCH (08:38)
[2024-03-18] MEDS: dexAMETHasone 4 MG TAB PO SCH (08:38)
== END 2024-03-18 11:30 | disposition home or self-care (01) ==
LOC: 3E 07:40 → ASU 07:40

== ENCOUNTER 2025-04-27 15:02 | Observation (INO) ==
--- NOTE | 2025-04-27 15:45 | Emergency Department Note ---
History of Present Illness General Chief complaint: Referred by Doctor Stated complaint: REF BY DOC FOR MRI TO HEAD Time Seen by Provider: 04/27/25 15:33 History of Present Illness Maximum Pain Intensity: 10 This is an 84-year-old female that presents to the emergency department via private vehicle with complaints of "referred by for head imaging". The patient notes that she has had chronic neck pain radiating into the head posteriorly. No trauma. No injury. She does have a history of spinal fusion. She notes incomplete fusion of C1-C2 and has followed up with orthospine and neurosurgery spine at [place] and notes pain management was recommended. She notes that she underwent an a facet injection about 1 week ago. She notes no improvement of her pain and now notes that pain radiates up into the occipital region of the head and also feels a bit off balance. She has to use a walker now to ambulate which is new for her. She denies any fevers or chills. No nausea or vomiting. No chest pain or shortness of breath. Home Medications Medication Instructions Recorded Confirmed Type acetaminophen 500 mg tablet 1,000 mg PO Q6H PRN Pain 03/28/21 04/27/25 History (Tylenol Extra Strength) multivitamin 1 tab PO QAM 03/28/21 04/27/25 History aspirin 81 mg tablet,delayed 81 mg PO QAM 06/24/21 04/27/25 History release (Adult Aspirin Regimen) cilostazol 100 mg tablet 100 mg PO BID 08/19/21 04/27/25 History famotidine 20 mg tablet 20 mg PO QAM 01/05/22 04/27/25 History calcium 650 mg-vitamin D3 12.5 1 tab PO QAM 02/05/24 04/27/25 History mcg-vitamin K 40 mcg chewable tablet (Viactiv) coQ10 (ubiquinol) 100 mg capsule 100 mg PO QAM 02/05/24 04/27/25 History metoprolol succinate 25 mg 12.5 mg PO HS 02/05/24 04/27/25 History tablet,extended release 24 hr bupropion HCl 150 mg 24 hr tablet, 150 mg PO BID 08/26/24 04/27/25 History extended release escitalopram oxalate 10 mg tablet 0 mg PO DAILY 08/26/24 04/27/25 History escitalopram oxalate 20 mg tablet 20 mg PO QAM 08/26/24 04/27/25 History (Lexapro) pantoprazole 40 mg tablet,delayed 40 mg PO BID 08/26/24 04/27/25 History release rosuvastatin 20 mg tablet 20 mg PO HS 08/26/24 04/27/25 History valsartan 80 mg tablet 80 mg PO DAILY 08/26/24 04/27/25 History ascorbic acid (vitamin C) 500 mg 500 mg PO DAILY 10/13/24 04/27/25 History chewable tablet (Vitamin C) clopidogrel 75 mg tablet (Plavix) 75 mg PO DAILY #30 tabs 10/13/24 04/27/25 Rx Allergies Allergy/AdvReac Type Severity Reaction Status Date / Time sugammadex Allergy Severe Bronchospasms>stopped Verified 04/20/25 09:43 breathing prednisone Allergy Intermediate ELEVATED BP Verified 04/20/25 09:43 hydromorphone Allergy Mild RASH Verified 04/20/25 09:43 codeine AdvReac Intermediate NAUSEA AND Verified 04/20/25 09:43 DIZZY oxycodone AdvReac Intermediate DIZZINESS,N Verified 04/20/25 09:43 AUSEA Past Med/Surg History Problem List (Updated 04/27/25 @ 18:57 by Kareem Scott PA-C) Headache (Acute) Neck pain (Acute) Balance problems (Acute) Balance disorder Neck pain, acute Chronic anticoagulation History of fusion of cervical spine Cervical spinal stenosis due to adjacent segment disease after fusion procedure Cervicalgia of [id number] region Biceps tendinitis of right shoulder Myalgia, shoulder region Myofascial pain Vertigo Status post reverse total replacement of right shoulder (~03/2024) Rotator cuff arthropathy of right shoulder Lumbar spondylosis S/P trigger finger release Rotator cuff tendonitis Cervical facet joint syndrome Occipital neuralgia Cervical postlaminectomy syndrome Myalgia and myositis Obesity Cervicogenic headache Sacroiliitis Chronic back pain GERD (gastroesophageal reflux disease) Hypertension Hyperlipidemia Left knee DJD Medical History Cardiac murmur Faint (II/) at PAT appt 02/21/24; "soft systolic murmur" noted in cardio records ECHO 2020 showed no significant heart valve issues Anesthesia complication post CABG bronchospasm after extubation due to sugammadex; required longer ventilation MISA (obstructive sleep apnea) Intolerant to CPAP per records PAD (peripheral artery disease) - >75% right proximal popliteal stenosis, left occlusion distal SFA into proximal popliteal with mid popliteal reperfusion per cardio records - On Cilostazol - Saw Dr Hung once but never followed up afterwards Arthritis GERD (gastroesophageal reflux disease) Stable Anxiety and depression Headache Occipital area- will be seeing neurologist apt February 2024 for symptoms Hypertension Hyperlipidemia History of COVID-19 06/19/2022- no current CAD (coronary artery disease) s/p 3 vessel CABG [address] Seth Surgical History History of repair of rotator cuff right History of tooth extraction S/P trigger finger release History of hammer toe correction x 2 History of cardiac catheterization 02/2021 - [facility] [place] --> CABG History of coronary artery bypass graft 02/2021 [facility] [place] - CABG x 3 (MURRAY to LAD; SVG -OM; SVG-RCA) followed by Dr. Warren History of anesthesia reaction bp drops on occasion >was told to have surgeries at a hospital setting History of esophagogastroduodenoscopy (EGD) History of repair of rotator cuff right shoulder only History of colonoscopy S/P epidural steroid injection History of cataract extraction with lens replacement right/left History of cholecystectomy History of hysterectomy History of bunionectomy left/rt History of laminectomy cervical History of total knee replacement right/left History of total hip arthroplasty right Fusion of spine LUMBAR Family History Other Family history non-contributory No family history of adverse response to anesthesia Social History Smoking Status: Former smoker Tobacco Type: Cigarettes Second Hand Exposure: No; Do You Dip or Chew Tobacco: No; Hx Alcohol Use: No Hx Substance Use: No Preferred Language: [place]ar[place] Communication Ability: Effective 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 Required: No Beliefs That Will Affect Care: None marital status: Current Living Situation: Spouse current occupation: Retired How many Children do You have: 2 Feels Safe at Home: Yes Assistive Devices: Glasses Review of Systems A total of 10 systems reviewed and were otherwise negative Physical Exam Vital Signs Vital Signs - 24 hr 04/27/25 15:08 04/27/25 15:31 04/27/25 15:48 Temperature 36.4 C L Temperature Source Temporal Artery Scan Pulse Rate 68 Pulse Rate [Apical] 62 Pulse Rhythm [Apical] Regular Pulse Strength [Apical] Normal Respiratory Rate 16 20 Respiratory Effort / Characteristics Non-Labored Spontaneous Respiratory Depth Normal Respiratory Pattern Regular Blood Pressure 161/77 H Blood Pressure [Right Arm] 153/96 H Blood Pressure Mean 105 Blood Pressure Mean [Right Arm] 115 Blood Pressure Position [Right Arm] Lying Pulse Oximetry 100 94 96 Oxygen Delivery Method Room Air Room Air Room Air Sepsis Recent Fever Within 48 Hours No Sepsis New/Unexplained Change in Mental Status N/A Sepsis Action Taken by Nursing No Action Required 04/27/25 15:51 04/27/25 17:03 04/27/25 18:11 Temperature Temperature Source Pulse Rate 60 Pulse Rate [Apical] 58 L 64 Pulse Rhythm [Apical] Regular Pulse Strength [Apical] Normal Respiratory Rate 16 20 Respiratory Effort / Characteristics Non-Labored Spontaneous Non-Labored Respiratory Depth Normal Normal Respiratory Pattern Regular Blood Pressure Blood Pressure [Right Arm] 205/72 H 191/108 H Blood Pressure Mean Blood Pressure Mean [Right Arm] 116 135 Blood Pressure Position [Right Arm] Lying Pulse Oximetry 99 98 Oxygen Delivery Method Room Air Room Air Sepsis Recent Fever Within 48 Hours Sepsis New/Unexplained Change in Mental Status Sepsis Action Taken by Nursing 04/27/25 18:22 Temperature Temperature Source Pulse Rate Pulse Rate [Apical] 64 Pulse Rhythm [Apical] Pulse Strength [Apical] Respiratory Rate 20 Respiratory Effort / Characteristics Non-Labored Spontaneous Respiratory Depth Normal Respiratory Pattern Regular Blood Pressure Blood Pressure [Right Arm] 205/103 H Blood Pressure Mean Blood Pressure Mean [Right Arm] 137 Blood Pressure Position [Right Arm] Lying Pulse Oximetry 100 Oxygen Delivery Method Room Air Sepsis Recent Fever Within 48 Hours Sepsis New/Unexplained Change in Mental Status Sepsis Action Taken by Nursing VITAL SIGNS - Vital signs and nursing notes were reviewed. Stable and afebrile. GENERAL -84-year-old female appearing her stated age who is in no acute distress. Communicates well with provider and answers questions appropriately. SKIN - Without rashes. No meningeal or petechial rash. The skin overlying the neck and occipital region of the scalp is unremarkable. No erythema or edema. No crepitus. No fluctuance HEAD - NC/AT. EYES - PERRL with EOMI bilaterally. Sclera anicteric. EARS - No deformities of external structures noted on gross examination bilaterally. External auditory canals without discharge or otorrhea. Tympanic membranes pearly morales without retraction or bulging. No fluid or purulent material visualized behind the TM. Handle of malleus, umbo, cone of light, pars tensa/flaccid all easily visualized. NOSE - Midline and without cyanosis. No epistaxis or purulent drainage noted. Septum midline without deviation or septal hematoma noted. MOUTH/OROPHARYNX - Without perioral cyanosis. Buccal mucosa pink and moist and without leukoplakia. Tongue midline with equal elevation of palate bilaterally. No tonsillar hypertrophy, erythema, or exudates noted. Good dentition noted. NECK - Neck with FROM. Supple to palpation. No lymphadenopathy noted. No nuchal rigidity. LUNGS - Chest wall symmetric without accessory muscle use, intercostals retractions, or central cyanosis. Normal vesicular breath sounds CTA B/L. No wheezes, rales, or rhonchi appreciated. CARDIAC - RRR ABDOMEN - Abdominal contour normal without pulsations or visible masses. BS normoactive all four quadrants. No tenderness, palpable masses, hepatosplenomegaly, or ascites noted. EXTREMITIES - No clubbing or peripheral cyanosis. +5/5 strength noted in UE/LE bilaterally. NEUROLOGIC - Cranial nerves II through XII grossly intact. PSYCH -alert, oriented and pleasant on exam Course Administered Medications Discontinued Medications Ioversol (Optiray 320 125ml) 118 ml IV ONCE ONE Stop: 04/27/25 16:52 Last Admin: 04/27/25 16:52 Dose: 118 ml Documented By: RJOELIO Medical Decision Making Laboratory Data 04/27/25 15:57 04/27/25 15:57 Lab Results 04/27/25 Range/Units 15:57 WBC 5.45 (4.8-10.8) K/ul RBC 3.73 L (4.20-5.40) M/uL Hgb 12.3 (12.0-16.0) g/dl Hct 35.3 L (37.0-47.0) % MCV 94.6 (80.0-100.0) fL MCH 33.0 (25.0-34.0) pg MCHC 34.8 (32.0-36.0) g/dL RDW Std Deviation 42.8 (36.4-46.3) fL RDW Coeff of Sarah 12.2 (11.5-14.5) % Plt Count 210 (130-400) K/uL MPV 10.7 (9.4-12.4) fL Immature Gran % (Auto) 0.4 % Neut % (Auto) 53.8 % Lymph % (Auto) 28.3 % Yell % (Auto) 12.1 % Eos % (Auto) 5.0 % Baso % (Auto) 0.4 % Neut # (Auto) 2.94 (1.40-6.50) K/uL Lymph # (Auto) 1.54 (1.20-3.40) K/uL Yell # (Auto) 0.66 H (0.11-0.59) K/uL Eos # (Auto) 0.27 (0.00-0.50) K/uL Baso # (Auto) 0.02 (0.00-0.20) K/uL Immature Gran # (Auto) 0.02 (0.01-0.20) K/uL PT 10.3 (9.0-12.0) Seconds INR 0.9 (0.9-1.1) APTT < 20 L (21-31) Seconds PTT Ratio 0.7 Sodium 137 (136-145) mmol/L Potassium 4.5 (3.5-5.1) mmol/L Chloride 104 (98-107) mmol/L Carbon Dioxide 30 (21-32) mmol/L Anion Gap 3 (3-11) BUN 25 H (6-23) mg/dl Creatinine 1.18 (0.6-1.2) mg/dl Est Cr Clr Drug Dosing 41.8 ml/min eGFR 46.12 BUN/Creatinine Ratio 21.2 H (10-20) Glucose 116 H (70-99(Fasting)) mg/dl Calcium 9.0 (8.6-10.3) mg/dl Total Bilirubin 0.5 (0.2-1.0) mg/dl AST 23 (13-39) U/L ALT 20 (7-52) U/L Alkaline Phosphatase 53 (34-104) U/L Total Protein 6.8 (6.0-8.3) gm/dl Albumin 3.9 (3.4-5.0) gm/dl Globulin 2.9 (2.5-4.0) gm/dl Albumin/Globulin Ratio 1.3 (0.9-2) Imaging Data Radiologist's Impression: Head CTA 04/27/25 15:43 Clinical history: Headache Technique: Axial computed tomography images were obtained of the brain before and after the administration of intravenous contrast according to the CT angiogram protocol Findings: There is cerebral atrophy, within expected limits for the patient's age. Areas of decreased attenuation are seen within the periventricular white matter, likely representing chronic small vessel ischemic disease. There is no definite sign of acute or old infarction. No intracranial hemorrhage is evident. No definite mass lesion is seen. There is no midline shift or other form of herniation. No hydrocephalus is seen. No fracture is identified. There is a mucus retention cyst in the right maxillary sinus. The mastoid air cells appear clear. No definite stenosis or aneurysm is seen of the anterior, middle, or posterior cerebral artery circulations. The visualized vertebral arteries and the basilar artery appear unremarkable Impression: No definite stenosis or aneurysm of the intracranial arteries Electronically signed by Sunil Pelaez 04-27-2025 5:22 PM Neck CTA 04/27/25 15:43 Technique: Axial computed tomography images were obtained of the neck after the administration of intravenous contrast according to the CT angiogram protocol Findings: No stenosis is seen of the common carotid arteries bilaterally. There is mild plaque in the right carotid bulb and proximal right internal carotid artery, without stenosis. There is a mild stenosis at the proximal left internal carotid artery with approximately 30% diameter narrowing. There is calcified plaque in the distal internal carotid arteries bilaterally, without significant stenosis. No stenosis of the external carotid arteries is seen There is a moderate severity stenosis at the distal left vertebral artery and there is a mild stenosis of the distal right vertebral artery. The visualized thoracic aorta appears unremarkable There is a moderate severity stenosis at the junction of the left subclavian and left axillary arteries There is a cervical fusion. There is a right shoulder replacement. There are several nodules in the right thyroid lobe Impression: 1. Mild stenosis of the proximal left ICA 2. Moderate severity stenosis of the distal left vertebral artery and mild stenosis of the distal right vertebral artery 3. Moderate severity stenosis at the junction of the left subclavian and left axillary arteries 4. Indeterminate thyroid nodules. A follow-up thyroid ultrasound could be obtained Electronically signed by Sunil Pelaez 04-27-2025 5:25 PM MDM Narrative Patient was seen and evaluated as above in room A11. Review was performed of triage nursing notes and vital signs. I did review pertinent previous visits and patient history. After obtaining a thorough history and physical examination the above work up was performed. Patient presents to us today for evaluation of ongoing neck pain and posterior head pain. On examination there is no sign of injection site infection. There is no crepitus or evidence of abscess clinically. The integument overlying the scalp and neck is unremarkable. No erythema. No herpetic lesions. She has no focal deficit on my assessment. Patient is not a TNK candidate at this time. Options of care were discussed with the patient. IV access was established. Labs were drawn. CT angios were obtained of the head and neck following a Noncon head CT. Angio results and head Noncon as above. Intracranial arteries without any significant finding. There were some stenotic findings noted on the CT angio of the neck. I do believe that an MRI of the brain at this time is warranted. However even with simple movements from the bed to the CT scanner and when the patient attempted to ambulate to the bathroom she noted off balance sensation. Noting the ongoing balance trouble and need for MRI I do believe that further evaluation and management in the inpatient setting is warranted. Case discussed with the hospitalist service. Please refer to further documentation regarding her stay. GCS: 15 In the evaluation and treatment of this patient the following differential diagnoses were entertained: CVA, TIA, cord impingement, infection, cervical radiculopathy, cervical strain, among others Impression & Plan Balance problems, Neck pain, Headache Discharge Plan Visit Data Chief Complaint: Referred by Doctor Stated Complaint: REF BY DOC FOR MRI TO HEAD ED Provider: Azalia Elder ED Midlevel Provider: Kareem Scott Discharge Problem: Balance problems, Neck pain, Headache Patient Disposition: Admitted As Inpatient Condition: Good Forms Stand Alone Forms: My [employer] Prescriptions Prescriptions: No Action bupropion HCl 150 mg tablet extended release 24 hr 150 mg PO BID escitalopram oxalate 10 mg tablet 0 mg PO DAILY Patient Comments: 04/27- last filled 03/12 30 day supply #30 valsartan 80 mg tablet 80 mg PO DAILY rosuvastatin 20 mg tablet 20 mg PO HS pantoprazole 40 mg tablet,delayed release (DR/EC) 40 mg PO BID aspirin [Adult Aspirin Regimen] 81 mg tablet,delayed release (DR/EC) 81 mg PO QAM Patient Comments: 04/27- otc unable to verify escitalopram oxalate [Lexapro] 20 mg tablet 20 mg PO QAM multivitamin Tablet 1 tab PO QAM Patient Comments: 04/27- otc unable to verify acetaminophen [Tylenol Extra Strength] 500 mg Tablet 1,000 mg PO Q6H PRN (Reason: Pain) Patient Comments: 04/27- otc unable to verify cilostazol 100 mg Tablet 100 mg PO BID famotidine 20 mg Tablet 20 mg PO QAM Patient Comments: 04/27- otc/no fill history unable to verify metoprolol succinate 25 mg Tablet Extended Release 24 Hr 12.5 mg PO HS coQ10 (ubiquinol) 100 mg Capsule 100 mg PO QAM Patient Comments: 04/27- otc unable to verify calcium-vitamin D3-vitamin K [Viactiv] 650 mg-12.5 mcg-40 mcg Tablet,Chewable 1 tab PO QAM Patient Comments: 04/27- otc unable to verify ascorbic acid (vitamin C) [Vitamin C] 500 mg Tablet,Chewable 500 mg PO DAILY Patient Comments: 04/27- otc unable to verify clopidogrel [Plavix] 75 mg tablet 75 mg PO DAILY Qty: 30 2RF Referrals Referrals: Aziza Michel MD [Primary Care Provider] -
--- NOTE | 2025-04-27 15:46 | Emergency Department Note ---
ED Visit Note I was consulted by the Advanced Practice Provider, Kareem Scott PA-C. I performed a substantive portion of the visit. This includes aspects of: History: Patient is an 84-year-old female presenting with gait instability and dizziness. Patient had injections into her C1/C2 facet injection 1 week ago. She states that for the last 6 or so days she has been having pain in the back of her head and feeling very off balance. She has been using a walker secondary to her gait instability, which she has not had to use previously. Denies any double or blurry vision. MDM: - Laboratory workup interpreted by myself showed normal WB; normal INR; stable electrolytes - CTA head/neck negative for acute pathology. - Patient was unable to ambulate successfully for potential discharge home secondary to her gait instability and dizziness. As such, will admit to hospitalist service for further evaluation, including MRI of the brain. .
[2025-04-27 16:10] LABS: Hematocrit (blood only) 35.3 % (37.0-47.0); Hemoglobin 12.3 g/dl (12.0-16.0); Immature Granulocytes # (auto) 0.02 K/uL (0.01-0.20); Immature Granulocytes % (auto) 0.4 %; Mean Corpuscular Hemoglobin 33.0 pg (25.0-34.0); Mean Corpuscular Volume 94.6 fL (80.0-100.0); Platelet Count 210 K/uL (130-400); RDW Standard Deviation 42.8 fL (36.4-46.3); Red Blood Count 3.73 M/uL (4.20-5.40); White Blood Count 5.45 K/ul (4.8-10.8)
[2025-04-27 16:26] LABS: Alanine Aminotransferase 20.0 U/L (7-52); Albumin Globulin Ratio 1.3 (0.9-2); Alkaline Phosphatase 53.0 U/L (34-104); Anion Gap 3.0 (3-11); Bilirubin,Total 0.5 mg/dl (0.2-1.0); Blood Urea Nitrogen 25.0 mg/dl (6-23); Calcium 9.0 mg/dl (8.6-10.3); Carbon Dioxide 30.0 mmol/L (21-32); Chloride 104.0 mmol/L (98-107); Creatinine Clr Calc Pharmacy 41.8 ml/min; Globulin 2.9 gm/dl (2.5-4.0); Glucose 116.0 mg/dl (70-99(Fasting)); Potassium 4.5 mmol/L (3.5-5.1); Sodium 137.0 mmol/L (136-145); Total Protein 6.8 gm/dl (6.0-8.3)
[2025-04-27] MEDS: OPTIRAY 320 125ml IV ONE (16:52)
--- NOTE | 2025-04-27 17:22 | CT Scan Report ---
Clinical history: Headache Technique: Axial computed tomography images were obtained of the brain before and after the administration of intravenous contrast according to the CT angiogram protocol Findings: There is cerebral atrophy, within expected limits for the patient's age. Areas of decreased attenuation are seen within the periventricular white matter, likely representing chronic small vessel ischemic disease. There is no definite sign of acute or old infarction. No intracranial hemorrhage is evident. No definite mass lesion is seen. There is no midline shift or other form of herniation. No hydrocephalus is seen. No fracture is identified. There is a mucus retention cyst in the right maxillary sinus. The mastoid air cells appear clear. No definite stenosis or aneurysm is seen of the anterior, middle, or posterior cerebral artery circulations. The visualized vertebral arteries and the basilar artery appear unremarkable Impression: No definite stenosis or aneurysm of the intracranial arteries Electronically signed by Sunil Pelaez 04-27-2025 5:22 PM
--- NOTE | 2025-04-27 17:26 | CT Scan Report ---
Technique: Axial computed tomography images were obtained of the neck after the administration of intravenous contrast according to the CT angiogram protocol Findings: No stenosis is seen of the common carotid arteries bilaterally. There is mild plaque in the right carotid bulb and proximal right internal carotid artery, without stenosis. There is a mild stenosis at the proximal left internal carotid artery with approximately 30% diameter narrowing. There is calcified plaque in the distal internal carotid arteries bilaterally, without significant stenosis. No stenosis of the external carotid arteries is seen There is a moderate severity stenosis at the distal left vertebral artery and there is a mild stenosis of the distal right vertebral artery. The visualized thoracic aorta appears unremarkable There is a moderate severity stenosis at the junction of the left subclavian and left axillary arteries There is a cervical fusion. There is a right shoulder replacement. There are several nodules in the right thyroid lobe Impression: 1. Mild stenosis of the proximal left ICA 2. Moderate severity stenosis of the distal left vertebral artery and mild stenosis of the distal right vertebral artery 3. Moderate severity stenosis at the junction of the left subclavian and left axillary arteries 4. Indeterminate thyroid nodules. A follow-up thyroid ultrasound could be obtained Electronically signed by Sunil Pelaez 04-27-2025 5:25 PM
[2025-04-27 17:46] LABS: INR 0.9 (0.9-1.1); Prothrombin Time 10.3 Seconds (9.0-12.0)
[2025-04-27 17:52] LABS: Partial Thromboplastin Time < 20 Seconds (21-31)
--- NOTE | 2025-04-27 17:55 | History & Physical Report ---
Date of Service April 27, 2025 Assessment & Plan (1) Neck pain, acute: (2) Balance disorder: (3) Cervicogenic headache: (4) Hypertension: Plan This patient is an 84-year-old female with a history of CAD s/p CABG, PAD s/p right SFA stent, cervicogenic headache and chronic neck pain, cervical postlaminectomy syndrome s/p C3-C7 cervical discectomy and fusion, HTN, HLD, GERD, MISA not on CPAP, anxiety/depression, who presents to the ED with worsening neck pain and imbalance since receiving a right C1-2 intra-articular facet injection with pain management [address] angiogram of the head and neck with moderate severity stenoses of the distal left vertebral artery and left subclavian and left axillary arteries as well as mild stenosis of the distal right vertebral artery and proximal left ICA. Blood pressures were quite elevated but she was anxious at the time of admission. She will be brought in on observation for subacute/acute CVA workup. #Imbalance-with recent cervical neck injection and known risk factors for CVA of PAD and CAD, with moderate stenoses in posterior circulation on CT angiogram neck. With symptoms ongoing for several days she is not a candidate for TNKase - Admit to medical floor with telemetry for arrhythmia monitoring and stroke workup - Neurochecks, NIH stroke scale every shift - Check MRI brain without contrast - Echocardiogram with bubble study ordered - Check lipid panel, HgbA1c and consider increasing rosuvastatin further to 40 mg - Continue statin, aspirin, Plavix as before - PT/OT consults - BP control-IV hydralazine as needed was ordered on top of her usual valsartan and metoprolol #Cervicogenic headache/chronic neck pain/cervical post laminectomy syndrome- acute on chronic after receiving C1-2 injection 1 week prior. She has intolerance to a lot of pain medication - Order tramadol 50 mg p.o. every 4 hours as needed moderate to severe pain which she has tolerated in the past - Continue Tylenol as needed - Add heating pad - Avoid stronger opioids or muscle relaxers as she has had a lot of adverse side effects in the past with these #CAD s/p CABG/HTN/HLD/PAD-no acute issues - Continue home aspirin, Plavix, Pletal, rosuvastatin, valsartan, metoprolol - For elevated BP secondary to pain and anxiety-IV hydralazine as needed - Pain control #GERD-no acute issues - Continue PPI #MISA not on CPAP-noted - Monitor for hypoxemia overnight #Anxiety/depression-no acute issues - Continue home bupropion, escitalopram DVT prophylaxis-SCDs Disposition-admit to medical telemetry unit on observation History of Present Illness Chief Complaint: Worsening neck pain, imbalance Primary Care Provider: Aziza Michel MD This patient is an 84-year-old female with a history of CAD s/p CABG, PAD s/p right SFA stent, cervicogenic headache and chronic neck pain, cervical postlaminectomy syndrome s/p C3-C7 cervical discectomy and fusion, HTN, HLD, GERD, MISA not on CPAP, anxiety/depression, who presents to the ED with worsening neck pain and imbalance since receiving a right C1-2 intra-articular facet injection with pain management 1 week prior. She reports since then, her pain is actually worse and now she is feeling off balance with any movement and having to use a walker which is new for her. Denies any numbness or tingling or weakness anywhere. She called into the pain management office who referred her to the ED for workup for stroke. In the ED, she had a CT angiogram of the head and neck which showed most notably moderate severity stenoses of the distal left vertebral artery and left subclavian and left axillary arteries as well as mild stenosis of the distal right vertebral artery and proximal left ICA. Her laboratory values were unremarkable. She was not treated with anything for pain as she typically has a lot of adverse reactions to various pain medications and muscle relaxers however she cannot tolerate tramadol. She will be brought in on observation for subacute/acute CVA workup. Allergies Allergy/AdvReac Type Severity Reaction Status Date / Time sugammadex Allergy Severe Bronchospasms>stopped Verified 04/20/25 09:43 breathing prednisone Allergy Intermediate ELEVATED BP Verified 04/20/25 09:43 hydromorphone Allergy Mild RASH Verified 04/20/25 09:43 codeine AdvReac Intermediate NAUSEA AND Verified 04/20/25 09:43 DIZZY oxycodone AdvReac Intermediate DIZZINESS,N Verified 04/20/25 09:43 AUSEA Home Medications Medication Instructions Recorded Confirmed Type acetaminophen 500 mg tablet 1,000 mg PO Q6H PRN Pain 03/28/21 04/27/25 History (Tylenol Extra Strength) multivitamin 1 tab PO QAM 03/28/21 04/27/25 History aspirin 81 mg tablet,delayed 81 mg PO QAM 06/24/21 04/27/25 History release (Adult Aspirin Regimen) cilostazol 100 mg tablet 100 mg PO BID 08/19/21 04/27/25 History famotidine 20 mg tablet 20 mg PO QAM 01/05/22 04/27/25 History calcium 650 mg-vitamin D3 12.5 1 tab PO QAM 02/05/24 04/27/25 History mcg-vitamin K 40 mcg chewable tablet (Viactiv) coQ10 (ubiquinol) 100 mg capsule 100 mg PO QAM 02/05/24 04/27/25 History metoprolol succinate 25 mg 12.5 mg PO HS 02/05/24 04/27/25 History tablet,extended release 24 hr bupropion HCl 150 mg 24 hr tablet, 150 mg PO BID 08/26/24 04/27/25 History extended release escitalopram oxalate 10 mg tablet 0 mg PO DAILY 08/26/24 04/27/25 History escitalopram oxalate 20 mg tablet 20 mg PO QAM 08/26/24 04/27/25 History (Lexapro) pantoprazole 40 mg tablet,delayed 40 mg PO BID 08/26/24 04/27/25 History release rosuvastatin 20 mg tablet 20 mg PO HS 08/26/24 04/27/25 History valsartan 80 mg tablet 80 mg PO DAILY 08/26/24 04/27/25 History ascorbic acid (vitamin C) 500 mg 500 mg PO DAILY 10/13/24 04/27/25 History chewable tablet (Vitamin C) clopidogrel 75 mg tablet (Plavix) 75 mg PO DAILY #30 tabs 10/13/24 04/27/25 Rx Past Med/Surg History Problem List Balance disorder Neck pain, acute Chronic anticoagulation History of fusion of cervical spine Cervical spinal stenosis due to adjacent segment disease after fusion procedure Cervicalgia of thimbqsm-lypaxnj-evzfw region Biceps tendinitis of right shoulder Myalgia, shoulder region Myofascial pain Vertigo Status post reverse total replacement of right shoulder (~03/2024) Rotator cuff arthropathy of right shoulder Lumbar spondylosis S/P trigger finger release Rotator cuff tendonitis Cervical facet joint syndrome Occipital neuralgia Cervical postlaminectomy syndrome Myalgia and myositis Obesity Cervicogenic headache Sacroiliitis Chronic back pain GERD (gastroesophageal reflux disease) Hypertension Hyperlipidemia Left knee DJD Medical History Cardiac murmur Faint (II/) at PAT appt 02/21/24; "soft systolic murmur" noted in cardio records ECHO 2020 showed no significant heart valve issues Anesthesia complication post CABG bronchospasm after extubation due to sugammadex; required longer ventilation MISA (obstructive sleep apnea) Intolerant to CPAP per records PAD (peripheral artery disease) - >75% right proximal popliteal stenosis, left occlusion distal SFA into proximal popliteal with mid popliteal reperfusion per cardio records - On Cilostazol - Saw Dr Hung once but never followed up afterwards Arthritis GERD (gastroesophageal reflux disease) Stable Anxiety and depression Headache Occipital area- will be seeing neurologist apt February 2024 for symptoms Hypertension Hyperlipidemia History of COVID-19 06/19/2022- no current CAD (coronary artery disease) s/p 3 vessel CABG [address] Seth Surgical History History of repair of rotator cuff right History of tooth extraction S/P trigger finger release History of hammer toe correction x 2 History of cardiac [place] [facility] [place] History of coronary artery bypass graft [place] [facility] [place] x 3 (MURRAY to LAD; SVG -OM; SVG-RCA) followed by Dr. Warren History of anesthesia reaction bp drops on occasion >was told to have surgeries at a hospital setting History of esophagogastroduodenoscopy (EGD) History of repair of rotator cuff right shoulder only History of colonoscopy S/P epidural steroid injection History of cataract extraction with lens replacement right/left History of cholecystectomy History of hysterectomy History of bunionectomy left/rt History of laminectomy cervical History of total knee replacement right/left History of total hip arthroplasty right Fusion of spine LUMBAR Family History Other Family history non-contributory No family history of adverse response to anesthesia Social History Smoking Status: Former smoker Tobacco Type: Cigarettes Second Hand Exposure: No; Do You Dip or Chew Tobacco: No; Hx Alcohol Use: No Hx Substance Use: No Preferred Language: Sinhala Communication Ability: Effective 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 Fire Operator 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: No Beliefs That Will Affect Care: None marital status: Current Living Situation: Spouse current occupation: Retired How many Children do You have: 2 Feels Safe at Home: Yes Assistive Devices: Glasses Review of Systems Review of Systems: All systems reviewed & are unremarkable except as noted in HPI & below Physical Exam Constitutional: WD/WN, vitals as above Eyes: PERRL, conjunctivae normal, anicteric sclerae ENMT: external ear and nose normal, oropharynx normal Neck: Very limited range of motion of neck with looking to the left and right Positive muscle spasm especially right greater than left trapezius and cervical paraspinous muscles Respiratory: normal respiratory effort, lungs clear to auscultation Cardiovascular: RRR, no murmur, no edema Chest (Breasts): Chest: normal inspection of chest Gastrointestinal (Abdomen): normal bowel sounds, soft, nontender, no hepatosplenomegaly Musculoskeletal: Extremities: extremities normal to inspection; no cyanosis and no clubbing Skin: no rashes, warm and dry Neurologic: moves all extremities and awake; no focal motor deficits Motor/Sensory: no tremor Psychiatric: A+Ox3, euthymic affect Lymphatic: no lymphedema Results & Data Results & Data Vital Signs (Past 12 Hours) Vital Signs Temp Pulse Pulse Resp BP BP Pulse Ox 04/27/25 17:03 58 L 16 205/72 H 99 04/27/25 15:51 60 04/27/25 15:48 96 04/27/25 15:31 62 20 153/96 H 94 04/27/25 15:08 36.4 C L 68 16 161/77 H 100 O2 Del Method 04/27/25 17:03 Room Air 04/27/25 15:51 04/27/25 15:48 Room Air 04/27/25 15:31 Room Air 04/27/25 15:08 Room Air Laboratory Results CBC, PT/PTT/INR, BMP, LFTs reviewed Diagnostic Findings Head CTA 04/27/25 15:43 Clinical history: Headache Technique: Axial computed tomography images were obtained of the brain before and after the administration of intravenous contrast according to the CT angiogram protocol Findings: There is cerebral atrophy, within expected limits for the patient's age. Areas of decreased attenuation are seen within the periventricular white matter, likely representing chronic small vessel ischemic disease. There is no definite sign of acute or old infarction. No intracranial hemorrhage is evident. No definite mass lesion is seen. There is no midline shift or other form of herniation. No hydrocephalus is seen. No fracture is identified. There is a mucus retention cyst in the right maxillary sinus. The mastoid air cells appear clear. No definite stenosis or aneurysm is seen of the anterior, middle, or posterior cerebral artery circulations. The visualized vertebral arteries and the basilar artery appear unremarkable Impression: No definite stenosis or aneurysm of the intracranial arteries Electronically signed by Sunil Pelaez 04-27-2025 5:22 PM Neck CTA 04/27/25 15:43 Technique: Axial computed tomography images were obtained of the neck after the administration of intravenous contrast according to the CT angiogram protocol Findings: No stenosis is seen of the common carotid arteries bilaterally. There is mild plaque in the right carotid bulb and proximal right internal carotid artery, without stenosis. There is a mild stenosis at the proximal left internal carotid artery with approximately 30% diameter narrowing. There is calcified plaque in the distal internal carotid arteries bilaterally, without significant stenosis. No stenosis of the external carotid arteries is seen There is a moderate severity stenosis at the distal left vertebral artery and there is a mild stenosis of the distal right vertebral artery. The visualized thoracic aorta appears unremarkable There is a moderate severity stenosis at the junction of the left subclavian and left axillary arteries There is a cervical fusion. There is a right shoulder replacement. There are several nodules in the right thyroid lobe Impression: 1. Mild stenosis of the proximal left ICA 2. Moderate severity stenosis of the distal left vertebral artery and mild stenosis of the distal right vertebral artery 3. Moderate severity stenosis at the junction of the left subclavian and left axillary arteries 4. Indeterminate thyroid nodules. A follow-up thyroid ultrasound could be obtained Electronically signed by Sunil Pelaez 04-27-2025 5:25 PM Code Status & VTE Plan Code Status Full code VTE Prophylaxis Plan VTE Prophylaxis will be ordered: Yes PG Care Time/CCT Total # of Minutes Spent Total Time Spent with Patient: Total time spent is greater than 50% in coordination of care (as documented) at patient's floor/unit and/or counseling patient: Coding Level of Care Code 73316 INT INP/OBS CARE MIN Diagnoses Neck pain, acute M54.2 Balance disorder R26.89 Cervicogenic headache R51.9 Hypertension I10
[2025-04-27] MEDS: KETOROLAC TROMETHAMINE 15 MG/ML VIAL IV ONE (21:16)
[2025-04-27] MEDS ORDERED: POLYETHYLENE (MIRALAX) 17 GM PACK PO PRN (22:02)
[2025-04-27] MEDS ORDERED: PHARMACIST DISCHARGE MED REC CONSULT PRN (22:02)
[2025-04-27] MEDS ORDERED: ONDANSETRON INJ 2 MG/ML 2 ML VIAL IV PRN (22:02)
[2025-04-27] MEDS: ROSUVASTATIN CALCIUM 20 MG TAB PO SCH (23:56)
[2025-04-27] MEDS: METOPROLOL SUCC 25MG EXT REL TAB PO SCH (23:56)
--- NOTE | 2025-04-28 00:18 | Magnetic Resonance Report ---
Exam(s): MRI HEAD Without Contrast EXAM: MR Head Without Intravenous Contrast CLINICAL HISTORY: Reason for exam: headache, neck pain, balance issues. TECHNIQUE: Magnetic resonance images of the head/brain without intravenous contrast in multiple planes. COMPARISON: Prior head CT from April 27, 2025. FINDINGS: Brain: Mild nonspecific white matter changes. No mass. No hemorrhage. No acute infarct. The flow voids at the base the brain are intact. Ventricles: Unremarkable. No ventriculomegaly. Bones/joints: There is a critical spinal canal stenosis at C1-C2. There is an erosive arthropathy at C1 CT.. No acute fracture. Sinuses: Unremarkable as visualized. No acute sinusitis. Mastoid air cells: Unremarkable as visualized. No mastoid effusion. Orbits: Bilateral lens replacements. IMPRESSION: No evidence of acute intracranial pathology. There is an erosive arthropathy at C1-C2 with a critical spinal canal stenosis. Recommend MRI of the cervical spine for further evaluation. Communications: Verify Receipt Electronically signed by: Xochitl Abdi MD 04/28/25 00:17 AM
[2025-04-28 07:21] LABS: Hematocrit (blood only) 35.3 % (37.0-47.0); Hemoglobin 11.9 g/dl (12.0-16.0); Immature Granulocytes # (auto) 0.02 K/uL (0.01-0.20); Immature Granulocytes % (auto) 0.4 %; Mean Corpuscular Hemoglobin 31.6 pg (25.0-34.0); Mean Corpuscular Volume 93.6 fL (80.0-100.0); Platelet Count 195 K/uL (130-400); RDW Standard Deviation 42.5 fL (36.4-46.3); Red Blood Count 3.77 M/uL (4.20-5.40); White Blood Count 5.55 K/ul (4.8-10.8)
[2025-04-28 07:38] LABS: Anion Gap 7.0 (3-11); Blood Urea Nitrogen 19.0 mg/dl (6-23); Calcium 8.7 mg/dl (8.6-10.3); Carbon Dioxide 26.0 mmol/L (21-32); Chloride 104.0 mmol/L (98-107); Cholesterol 146.0 mg/dl (0-200); Creatinine Clr Calc Pharmacy 40.0 ml/min; Glucose 100.0 mg/dl (70-99(Fasting)); HDL Cholesterol 51.0 mg/dl; Potassium 4.1 mmol/L (3.5-5.1); Sodium 137.0 mmol/L (136-145); Triglycerides 179.0 mg/dl (0-150)
[2025-04-28 07:46] LABS: Hemoglobin A1C 5.6 % (4.5-5.6)
[2025-04-28] MEDS: ACETAMINOPHEN 500 MG TAB PO PRN (07:56)
[2025-04-28 07:58] VITALS: BP 147/66; RESP 16; TEMP 98.2; O2SAT 95
[2025-04-28] MEDS: MULTIVITAMIN TAB PO SCH (08:51)
[2025-04-28] MEDS: ASPIRIN 81 MG ECTAB PO SCH (08:51)
[2025-04-28] MEDS: ESCITALOPRAM OXALATE 20 MG TAB PO SCH (08:51)
[2025-04-28] MEDS: ESCITALOPRAM OXALATE 10 MG TAB PO SCH (08:52)
[2025-04-28] MEDS: VALSARTAN 80 MG TAB PO SCH (08:52)
[2025-04-28] MEDS: CLOPIDOGREL BISULFATE 75 MG TAB PO SCH (08:52)
[2025-04-28] MEDS: FAMOTIDINE 20 MG TAB PO SCH (08:56)
[2025-04-28] MEDS: KETOROLAC TROMETHAMINE 15 MG/ML VIAL IV PRN (08:59)
--- NOTE | 2025-04-28 11:14 | Discharge Summary ---
Discharge Summary Date of Service April 28, 2025 Principal Dx & Hospital Course #1 = Principal Diagnosis (1) Neck pain, acute: (2) Balance disorder: (3) Cervicogenic headache: (4) Hypertension: Plan This patient is an 84-year-old female with a history of CAD s/p CABG, PAD s/p right SFA stent, cervicogenic headache and chronic neck pain, cervical postlaminectomy syndrome s/p C3-C7 cervical discectomy and fusion, HTN, HLD, GE RD, MISA not on CPAP, anxiety/depression, who presents to the ED with worsening neck pain and imbalance since receiving a right C1-2 intra-articular facet injection with pain management [address] angiogram of the head and neck with moderate severity stenoses of the distal left vertebral artery and left subclavian and left axillary arteries as well as mild stenosis of the distal right vertebral artery and proximal left ICA. Blood pressures were quite elevated but she was anxious at the time of admission. She will be brought in on observation for subacute/acute CVA workup. #Imbalance with recent cervical neck injection and known risk factors for CVA of PAD and CAD, with moderate stenoses in posterior circulation on CT angiogram neck. With symptoms ongoing for several days she is not a candidate for TNKase Brain MRI negative for acute intracranial pathology. Did note C1-C2 severe spinal stenosis which has been followed by orthospine + pain management. Echo final read pending. Previous Echo from 2020 did reveal EF 60-65%, mild MR/TR. Lipids w/ mild elevation of TG, remainder cholesterol panel stable. - continue statin Hgb A1c 5.6% PT/OT - recommending home eval but patient declines home health. #Cervicogenic headache/chronic neck pain/cervical post laminectomy syndrome acute on chronic after receiving C1-2 injection 1 week prior. She has intolerance to a lot of pain medication Tramadol 50mg PO q 4h on discharge. Suspect symptoms related to chronic neck pain. - continue to follow w/ orthospine & pain management on outpatient basis. #CAD s/p CABG/HTN/HLD/PAD no acute issues Continue home aspirin, Plavix, Pletal, rosuvastatin, valsartan, metoprolol #GERD- Continue PPI #MISA not on CPAP-noted #Anxiety/depression-- Continue home bupropion, escitalopram Updated at bedside 04/28. Discharged home 04/28. Admission HPI Per Admitting Provider This patient is an 84-year-old female with a history of CAD s/p CABG, PAD s/p right SFA stent, cervicogenic headache and chronic neck pain, cervical postlaminectomy syndrome s/p C3-C7 cervical discectomy and fusion, HTN, HLD, GERD, MISA not on CPAP, anxiety/depression, who presents to the ED with worsening neck pain and imbalance since receiving a right C1-2 intra-articular facet injection with pain management 1 week prior. She reports since then, her pain is actually worse and now she is feeling off balance with any movement and having to use a walker which is new for her. Denies any numbness or tingling or weakness anywhere. She called into the pain management office who referred her to the ED for workup for stroke. In the ED, she had a CT angiogram of the head and neck which showed most notably moderate severity stenoses of the distal left vertebral artery and left subclavian and left axillary arteries as well as mild stenosis of the distal right vertebral artery and proximal left ICA. Her laboratory values were unremarkable. She was not treated with anything for pain as she typically has a lot of adverse reactions to various pain medications and muscle relaxers however she cannot tolerate tramadol. She will be brought in on observation for subacute/acute CVA workup. Discharge Exam Constitutional WD/WN, vitals as above Eyes PERRL, conjunctivae normal, anicteric sclerae Respiratory normal respiratory effort Skin no rashes, warm and dry Neurologic PERRL, EOMI, accommodation nl, no face palsy, no dysarthria Discharge Plan Discharge Items Patient Disposition: Home - Self-Care Reason For Visit: CVA RULE OUT Discharge Diagnosis: Neck pain Condition on Discharge: Good Activity: Resume your previous activity Non-emergency contact: Primary Care Provider, Surgeon and Pain Management Call non-emergency contact if: you have any medication questions and your symptoms worsen Follow-up/Referrals: Benigno Luo MD, FIPP [Physician] - Aziza Michel MD [Primary Care Provider] - 05/06/25 10:45 am (Appointment [facility] with Cristino Castro) Diet: Heart Healthy Addtl Attending Provider Instructions: Mrs. Gonzalez, You were recently hospitalized to undergo a stroke workup based on symptoms you were experiencing. Your stroke work up was negative. Your symptoms are related to your spinal stenosis in your neck. Please see recommendations below regarding your discharge. Please resume your outpatient medications as previously prescribed. Continue to follow up with pain management on an outpatient basis for your spinal stenosis in your neck. Please use Tramadol 50mg every 4 hours as needed for neck/head pain. Please follow up with your PCP within 1-2 weeks of discharge. Best of luck! Tiffani Jc PA-C Pending Studies at Discharge: Yes Studies:: Echo final read Stand-Alone Forms: My [facility] [employer], Smoking Cessation Medications and DC Order Prescriptions: New tramadol 50 mg Tablet 50 mg PO Q4H PRN (Reason: pain) Qty: 7 0RF Continued bupropion HCl 150 mg tablet extended release 24 hr 150 mg PO BID escitalopram oxalate 10 mg tablet 0 mg PO DAILY Patient Comments: 04/27- last filled 03/12 30 day supply #30 valsartan 80 mg tablet 80 mg PO DAILY rosuvastatin 20 mg tablet 20 mg PO HS pantoprazole 40 mg tablet,delayed release (DR/EC) 40 mg PO BID aspirin [Adult Aspirin Regimen] 81 mg tablet,delayed release (DR/EC) 81 mg PO QAM Patient Comments: 04/27- otc unable to verify escitalopram oxalate [Lexapro] 20 mg tablet 20 mg PO QAM multivitamin Tablet 1 tab PO QAM Patient Comments: 04/27- otc unable to verify acetaminophen [Tylenol Extra Strength] 500 mg Tablet 1,000 mg PO Q6H PRN (Reason: Pain) Patient Comments: 04/27- otc unable to verify cilostazol 100 mg Tablet 100 mg PO BID famotidine 20 mg Tablet 20 mg PO QAM Patient Comments: 04/27- otc/no fill history unable to verify metoprolol succinate 25 mg Tablet Extended Release 24 Hr 12.5 mg PO HS coQ10 (ubiquinol) 100 mg Capsule 100 mg PO QAM Patient Comments: 04/27- otc unable to verify calcium-vitamin D3-vitamin K [Viactiv] 650 mg-12.5 mcg-40 mcg Tablet,Chewable 1 tab PO QAM Patient Comments: 04/27- otc unable to verify ascorbic acid (vitamin C) [Vitamin C] 500 mg Tablet,Chewable 500 mg PO DAILY Patient Comments: 04/27- otc unable to verify clopidogrel [Plavix] 75 mg tablet 75 mg PO DAILY Qty: 30 2RF Discharge Orders: Discharge Order (Routine); Ordered 04/28/25 Ordered By: Tiffani Lozoya/William Patient Handouts: ED Back and Neck Pain, General Admission Data Admit Date/Time: 04/27/25 18:16 Attending Provider: Taj Carver Admit Provider: Duyen Gomez Primary Care Provider: Aziza Michel Other Providers: Duyen Gomez Other Interventions: Discharge Summary Assessment (RN) Last Done: 04/28/25 11:16 Hospital Stay Data Consultations 04/27/25 17:38 ED Decision to Admit Stat Diagnostic Imagining Performed 04/27/25 15:43 CT angio head wo/w Stat CT angio neck with con Stat 04/27/25 17:38 MR brain wo con Stat Pending Results Patient Have Any Pending Studies at Discharge: Yes Discharge Instructions Given to Patient (Per Discharging Provider) Mrs. Gonzalez, You were recently hospitalized to undergo a stroke workup based on symptoms you were experiencing. Your stroke work up was negative. Your symptoms are related to your spinal stenosis in your neck. Please see recommendations below regarding your discharge. Please resume your outpatient medications as previously prescribed. Continue to follow up with pain management on an outpatient basis for your spinal stenosis in your neck. Please use Tramadol 50mg every 4 hours as needed for neck/head pain. Please follow up with your PCP within 1-2 weeks of discharge. Best of luck! Tiffani Jc PA-C Supervising Physician Co-Signing Physician Notes The patient was not seen by me. The chart was reviewed. Case discussed with JOE Daniel. Agree with assessment and plan Total Time Total Time Spent Total Time Spent (In Minutes): 50 Total Time Includes: Examination of the Patient, Discharge Planning, Medication Reconciliation and Other Coding Level of Care Code 98787 INP/OBS DISCH >30 MIN Diagnoses Neck pain, acute M54.2 Balance disorder R26.89 Cervicogenic headache R51.9 Hypertension I10
[2025-04-28 11:17] VITALS: PULSE 62
--- NOTE | 2025-04-28 17:23 | XCELERA ---
[id number]
== END 2025-04-28 12:32 | disposition home or self-care (01) ==
LOC: ED 15:02 → EDINP 15:02 → SUATTDRO 18:16 → 2N 22:36